=== PATIENT | female | born 2000 | race Two or more races ===

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

== ENCOUNTER 2021-07-03 11:54 | Outpatient (REF) | payer OTHER, SELFPAY ==
[2021-07-03 13:57] LABS: Binax Internal Control QC Valid; Binax Now Covid-19 Ag Negative (Negative)
== END 2021-07-03 11:55 | disposition home or self-care (01) ==
LOC: HO.LAB 11:54
PROVIDERS: Visit Provider Internal Medicine
DX: Z20.822 Contact with and (suspected) exposure to COVID-19 (principal)
CPT/HCPCS: C9803

== ENCOUNTER 2022-05-22 12:45 | Emergency (ER) | payer OTHER, SELFPAY ==
[2022-05-22 15:33] VITALS: BP 124/68; PULSE 89; RESP 16; TEMP 36.7; O2SAT 99; BMI 28.3
--- NOTE | 2022-05-22 15:44 | ED_ITS ---
HPI - Abdominal Pain General Chief Complaint: Abdominal Pain Stated Complaint: abd pain, ? missed period, backaches Time Seen by Provider: 05/22/22 17:53 Source: patient Mode of arrival: ambulatory Limitations: no limitations History of Present Illness HPI narrative: 21-year-old female who presents emergency department for evaluation of abdominal pain x2 days. The patient points to her lower abdomen acid from the pain. States this sharp pain which is intermittent. The pain is 3/10 at its worst. The patient has had 4 tests at home, 1 was -3 were positive. She does not know her last menstrual period was. Patient states she has been 1 time in the past and has no children. She denied fever, chills, chest pain, shortness of breath, nausea, vomiting, frequency, urgency or dysuria. Related Data Previous Rx's Medication Instructions Recorded famotidine 20 mg tablet (Pepcid) 20 mg PO BID 5 days #10 tabs 04/01/20 metoclopramide HCl 5 mg tablet 5 mg PO DAILY #14 tabs 08/16/20 (Reglan) ondansetron 4 mg disintegrating 4 mg PO Q8H PRN nausea and 11/29/20 tablet vomiting #20 tabs Allergies Allergy/AdvReac Type Severity Reaction Status Date / Time No Known Allergies Allergy Verified 05/20/22 14:51 Review of Systems Review of Systems Yes all other systems are reviewed and are negative [facility] Past Medical History [facility] Narrative: Past medical history: None. Past surgical history: None. Social history: She denies tobacco, alcohol and drug use. Medical History Healthy adult Spontaneous Social History Social History Alcohol intake: unknown Substance Use Type: Marijuana Advance Directives: No Advance Directives Information Provided: No Physical Exam ED Vital Signs: Vital Signs - 24 hr 05/22/22 15:33 Temperature 98.0 F Pulse Rate 89 Respiratory Rate 16 Blood Pressure 124/68 Pulse Oximetry 99 Oxygen Delivery Method Room Air BMI result Body Mass Index 28.3 Const General: cooperative and no acute distress Orientation/consciousness: oriented to person and oriented to place Limitations: no limitations HENMT Head: Yes normal to inspection, Yes normocephalic and Yes atraumatic Ears: external ears normal General nose exam: Normal external nose present Face and sinus: Yes normal facial exam Mouth: Normal oral and palatal mucosa present Throat: Yes posterior oropharynx normal Eyes General: appearance normal, both eyes and all related structures Pupils: Equal, round and reactive pupils present Neck Neck: Yes normal visual inspection, Yes no lymphadenopathy, Yes trachea midline and Yes supple Chest Chest palpation & inspection: normal inspection of the chest and normal palpation of entire chest wall Resp Effort & Inspection: normal respiratory effort and able to speak in complete s entences Auscultation: clear to auscultation bilaterally Cardio Rate: regular rate Rhythm: regular rhythm Heart sounds: S1 normal heart sound present, S2 normal heart sound present and no murmurs GI Inspection: Yes normal to inspection Palpation (GI): Soft to palpation, Tenderness to palpation present (GI) (Mild suprapubic tenderness) and no guarding Auscultation: normal bowel sounds General: Yes no CVA tenderness Back/Spine/Pelvis Back: no CVA tenderness Skin General skin exam: no rashes or lesions noted Neuro General: oriented to person and oriented to place Cranial nerves: Yes CN's II-XII intact bilaterally and Yes Equal, round and reactive pupils present Cognition (Neuro): normal cognition Motor exam (neuro): 5/5 motor strength present throughout Extrem General: Yes normal to inspection Psych Appearance: grossly normal Speech and movement: Normal speech and movement present Affect: normal affect Attitude: cooperative Thought process: Normal thought process present Thought content: Normal thought content present Course Course Course Narrative: RME: 21-year-old female no past medical history presents emergency department for evaluation of lower abdominal pain x2 days which is sharp, intermittent and 3/10 at its worst, she states she has had 4 positive tests at home. She states she has been once in the past and has no children. Vital signs were normal. Exam revealed suprapubic tenderness which is moderate, no rebound 1807: Laboratory evaluation: WBC elevated 11,600. Anemia with an H&H of 11.5 and 37.6 with a low MCV of 78.2. Platelet count was normal. CMP was normal. Quantitative beta-hCG was elevated 281. Urinalysis was negative. Blood type is O-positive. The patient does have a positive quantitative beta-hCG at 281 however this is not high enough to see the by ultrasound I did discuss this with the patient. The patient will be discharged home and advised to follow-up with our OBGYN to get a repeat quantitative beta-hCG in 1 week. Patient was prescribed vitamins. Patient was given printed and verbal instructions discharged home. MDM - Abdominal Pain Lab Data Result diagrams: 05/22/22 16:47 05/22/22 16:47 Labs: Lab Results 05/22/22 05/22/22 05/22/22 Range/Units 16:45 16:47 16:47 WBC 11.6 H (4.8-10.8) X10*3/uL RBC 4.82 (4.20-5.50) X10*6/uL Hgb 11.5 L (12.0-16.0) g/dl Hct 37.7 (37.0-47.0) % MCV 78.2 L (80.0-98.0) fL MCH 23.9 L (27.0-33.0) pg MCHC 30.5 L (31.0-35.0) g/dl RDW 15.6 (11.0-16.0) % Plt Count 371 (160-400) X10*3/uL MPV 9.7 (9.4-12.3) fL Immature Gran % (Auto) 0.5 H (0.0-0.4) % Neut % (Auto) 70.5 (45-73) % Lymph % (Auto) 23.0 (20-40) % [facility] % (Auto) 4.8 (2-11) % Eos % (Auto) 0.9 (0-4) % Baso % (Auto) 0.3 (0-2) % Lymph # (Auto) 2.7 (1.2-4.9) X10*3/uL [facility] # (Auto) 0.6 (0.1-1.2) X10*3/uL Eos # (Auto) 0.1 (0.0-0.4) X10*3/uL Baso # (Auto) 0.0 (0.0-0.2) X10*3/uL Abs Immat Gran (auto) 0.06 H (0.00-0.03) X10*3/uL Absolute Neuts (auto) 8.2 (2.0-8.3) x10*3/uL Absolute Nucleated RBC 0.000 (0.0-0.012) X10*3/uL Nucleated RBC % (auto) 0.0 (0.0-0.2) /100WBC Sodium 136 (135-145) mmol/L Potassium 3.9 (3.3-5.1) mmol/L Chloride 106 (96-108) mmol/L Carbon Dioxide 23 (22-29) mmol/L Anion Gap 11 L (12-20) BUN 11 (9-16) mg/dL Creatinine 0.71 (0.5-1.4) mg/dL Estim Creat Clear Calc 106.9 Estimated GFR > 60 Random Glucose 103 (60-115) mg/dL Calcium 9.6 (8.4-10.2) mg/dL Total Bilirubin 0.4 (0.0-1.0) mg/dL AST 11 (5-31) U/L ALT 9 (0-31) U/L Alkaline Phosphatase 95 (39-117) U/L Total Protein 7.5 (6.5-8.0) g/dL Albumin 4.2 (3.5-5.0) g/dL Beta HCG, Quant 281 mIU/mL Urine Color Urine Appearance Urine pH (5.0-9.0) Ur Specific [place] (1.005-1.025) Urine Protein (Neg-Trace) mg/dL Urine Glucose (UA) (Negative) mg/dL Urine Ketones (Negative) mg/dL Urine Blood (Negative) Urine Nitrite (Negative) Ur Leukocyte Esterase (Negative) Blood Type O Positive 05/22/22 Range/Units 17:08 WBC (4.8-10.8) X10*3/uL RBC (4.20-5.50) X10*6/uL Hgb (12.0-16.0) g/dl Hct (37.0-47.0) % MCV (80.0-98.0) fL MCH (27.0-33.0) pg MCHC (31.0-35.0) g/dl RDW (11.0-16.0) % Plt Count (160-400) X10*3/uL MPV (9.4-12.3) fL Immature Gran % (Auto) (0.0-0.4) % Neut % (Auto) (45-73) % Lymph % (Auto) (20-40) % [facility] % (Auto) (2-11) % Eos % (Auto) (0-4) % Baso % (Auto) (0-2) % Lymph # (Auto) (1.2-4.9) X10*3/uL [facility] # (Auto) (0.1-1.2) X10*3/uL Eos # (Auto) (0.0-0.4) X10*3/uL Baso # (Auto) (0.0-0.2) X10*3/uL Abs Immat Gran (auto) (0.00-0.03) X10*3/uL Absolute Neuts (auto) (2.0-8.3) x10*3/uL Absolute Nucleated RBC (0.0-0.012) X10*3/uL Nucleated RBC % (auto) (0.0-0.2) /100WBC Sodium (135-145) mmol/L Potassium (3.3-5.1) mmol/L Chloride (96-108) mmol/L Carbon Dioxide (22-29) mmol/L Anion Gap (12-20) BUN (9-16) mg/dL Creatinine (0.5-1.4) mg/dL Estim Creat Clear Calc Estimated GFR Random Glucose (60-115) mg/dL Calcium (8.4-10.2) mg/dL Total Bilirubin (0.0-1.0) mg/dL AST (5-31) U/L ALT (0-31) U/L Alkaline Phosphatase (39-117) U/L Total Protein (6.5-8.0) g/dL Albumin (3.5-5.0) g/dL Beta HCG, Quant mIU/mL Urine Color Yellow Urine Appearance Clear Urine pH 6.0 (5.0-9.0) Ur Specific [place] 1.020 (1.005-1.025) Urine Protein Negative (Neg-Trace) mg/dL Urine Glucose (UA) Negative (Negative) mg/dL Urine Ketones Negative (Negative) mg/dL Urine Blood Negative (Negative) Urine Nitrite Negative (Negative) Ur Leukocyte Esterase Negative (Negative) Blood Type Discharge Plan Discharge Clinical Impression: Abdominal pain Qualifiers: Weeks of gestation: less than 8 weeks Qualified Code(s): Z3A.01 - Less than 8 weeks gestation of Patient Disposition: Home, Self-Care Instructions: Abdominal Pain in (ED) Additional Instructions: Your quantitative beta-hCG blood test was 281. This number is too low for us to see your using an ultrasound. This number should double in 4-7 days therefore I want you to follow-up with our OBGYN provider to get a repeat quantitative beta-hCG in 4-7 days. At this time, I would assume that you are however sometimes women can have quantitative beta-hCG in their blood and not be fast [facility] to follow up to see if it goes up. If you developed increased pain in her lower abdomen, if you feel lightheaded or dizzy or if you develop any symptoms that your concerned about you should return to the emergency department. Follow-up with our OBGYN provider in 4-7 days Please return to the emergency department if your symptoms get worse or if you develop any symptoms that are concerning to you. Prescriptions: No Action famotidine [Pepcid] 20 mg tablet 20 mg PO BID 5 Days Qty: 10 0RF metoclopramide HCl [Reglan] 5 mg tablet 5 mg PO DAILY Qty: 14 0RF ondansetron 4 mg tablet,disintegrating 4 mg PO Q8H PRN (Reason: nausea and vomiting) Qty: 20 0RF Referrals: Jason John MD [Emergency Provider] - Darrel Lama MD [Physician] - 5 days (Quantitative beta-hCG 281, unknown last menstrual period, suprapubic pain)
[2022-05-22 16:50] LABS: MANUAL DIFF FLAG NO
[2022-05-22 16:57] LABS: Basophils Percent Auto 0.3 % (0-2); Eosinophils Absolute Auto 0.1 X10*3/uL (0.0-0.4); Eosinophils Percent Auto 0.9 % (0-4); Hematocrit 37.7 % (37.0-47.0); Hemoglobin 11.5 g/dl (12.0-16.0); Imm Gran Abs Auto 0.06 X10*3/uL (0.00-0.03); Imm Gran Pct Auto 0.5 % (0.0-0.4); Lymphocytes Absolute Auto 2.7 X10*3/uL (1.2-4.9); Mean Corpuscular HGB Conc 30.5 g/dl (31.0-35.0); Mean Corpuscular Hemoglobin 23.9 pg (27.0-33.0); Mean Corpuscular Volume 78.2 fL (80.0-98.0); Mean Platelet Volume 9.7 fL (9.4-12.3); Monocytes Absolute Auto 0.6 X10*3/uL (0.1-1.2); Monocytes Percent Auto 4.8 % (2-11); Neutrophils Absolute Auto 8.2 x10*3/uL (2.0-8.3); Neutrophils Percent Auto 70.5 % (45-73); Platelet Count 371 X10*3/uL (160-400); Red Blood Count 4.82 X10*6/uL (4.20-5.50); Red Cell Distribution Width 15.6 % (11.0-16.0); White Blood Count 11.6 X10*3/uL (4.8-10.8)
[2022-05-22 17:12] LABS: Alanine Aminotransferase 9 U/L (0-31); Albumin Level 4.2 g/dL (3.5-5.0); Alkaline Phosphatase 95 U/L (39-117); Anion Gap 11 (12-20); Aspartate Amino Transferase 11 U/L (5-31); Bilirubin Total 0.4 mg/dL (0.0-1.0); Blood Urea Nitrogen 11 mg/dL (9-16); Calcium 9.6 mg/dL (8.4-10.2); Carbon Dioxide 23 mmol/L (22-29); Chloride 106 mmol/L (96-108); Creatinine Clr Calc Pharmacy 106.9; Estimated Glomerular Filt Rate > 60; Glucose Random 103 mg/dL (60-115); HCG Quantitative 281 mIU/mL; Potassium 3.9 mmol/L (3.3-5.1); Sodium 136 mmol/L (135-145); Total Protein 7.5 g/dL (6.5-8.0)
[2022-05-22 17:29] LABS: Appearance Urine Clear; Color Urine Yellow; Glucose Urine UA Negative (Negative); Leukocyte Esterase Urine Negative (Negative); Nitrite Urine Negative (Negative); Urine Blood Negative (Negative); Urine Ketones Negative (Negative); Urine Protein Negative (Neg-Trace)
[2022-05-22 18:41] VITALS: BP 135/81; PULSE 90; RESP 14; TEMP 36.7; O2SAT 99
--- NOTE | 2022-05-22 18:42 | PC.NURSE ---
Pt aox4. No apparent distress noted. Discharge instructions reviewed with pt. Pt verbalizes understanding.
== END 2022-05-22 18:43 | disposition home or self-care (01) ==
PROVIDERS: Emergency Provider Emergency Medicine Emergency Medical Services; PCP Internal Medicine
DX: R10.9 Unspecified abdominal pain (principal); Z32.01 Encounter for pregnancy test, result positive
CPT/HCPCS: 36415; 80053; 81003; 84702; 85025; 86900; 86901; 99283

== ENCOUNTER 2023-03-17 10:28 | Outpatient (AMB) | payer OTHER, SELFPAY ==
[2023-03-17 10:28] VITALS: BP 116/64; PULSE 97; O2SAT 98; BMI 34.6
--- NOTE | 2023-03-17 10:28 | MHC.PC.OV ---
Vital Signs 03/17/23 10:28 Height 5 ft 1 in Weight 183 lb 2 oz BMI 34.6 BP 116/64 Blood Pressure Location Lt brachial Position Sitting Pulse 97 Pulse Source Pulse Oximeter Pulse Oximetry (%) 98 Oxygen Delivery Method Room Air Intake Visit Reasons: tranfer of care NPV Intake Note: Pt is here to transfer care from Dr. Dudley. Out Of School Hours Care Worker Required: No Accompanied by: Self / Same As Patient Is last menstrual period known: Yes Last menstrual period: 10/28/22 Patient : Yes (6 months ) Allergies No Known Allergies Allergy (Verified 03/17/23 10:54) Medication List - Last Reconciled 03/17/23 by Orlando Lucio PA-C PNV,calcium [id number] acid 27 mg iron- 1 mg ( Vitamins Plus Low Iron) 1 tab PO DAILY Tobacco use date assessed: 03/17/23 Dental Screening Dental Screen Date: 03/17/23 Did you have a dental visit in the last 12 months?: Yes Did you have a dental problem in the last 6 months where you did not have access to dental care?: No Was dental information given to patient?: Patient has dentist HPI tranfer of care NPV HPI Details Patient is a 22-year-old female here today for a transfer care visit. Patient has a past medical history significant for obesity, anemia and generalized anxiety disorder. Currently she reports she is 5 months , now seeing OBGYN at [facility]. Generalized anxiety disorder: She reports her anxiety has been a lifelong challenge, she does report having anxiety so bad that she ends up passing out . Her anxiety is mostly in social situations. Not been able to work. She has seen a mental therapist in the past and would like to reestablish care with a mental health therapist. She is somewhat interested in starting medication though at this time she is currently and will hold off on medication until after . . Iron deficiency anemia: Has a history of low hemoglobin and MCV. Currently in continues on a vitamin that also has iron. .. Vaccines: Up-to-date with COVID vaccine and tetanus vaccine, considering flu vaccine [facility] Medical History care in first trimester Spontaneous Healthy adult Surgical History No pertinent past surgical history Family History Mother No known health problems Father No known health problems Sister Type II diabetes mellitus Social History (Updated 03/17/23 @ 10:58 by Orlando Lucio PA-C) Housing: Apartment Alcohol intake: never Patient Tobacco Use Status: Never used Tobacco e-Cigarette/Vaping Use: Never Used Substance Use Type: Marijuana service: No Current occupational status: unemployed Cognitive needs: No Hearing needs: No Vision needs: Yes Female Reproductive History Menstrual Date of last menstrual period: 10/28/22 Questionnaire PHQ-9 Over the last 2 weeks, how often have you been bothered by any of the following problems? 1. Little interest or pleasure in doing things: not at all 2. Feeling down, depressed, or hopeless: not at all 3. Trouble falling or staying asleep, or sleeping too much: not at all 4. Feeling tired or having little energy: not at all 5. Poor appetite or overeating: not at all 6. Feeling bad about yourself - or that you are a failure or have let yourself or your family down: not at all 7. Trouble concentrating on things, such as reading the newspaper or watching television: not at all 8. Moving or speaking so slowly that other people could have noticed. Or the opposite - being so fidgety or restless that you have been moving around a lot more than usual: not at all 9. Thoughts that you would be better off or of hurting yourself in some way: not at all Total score: 0 Depression Screening Interpretation: Negative 42661 - PHQ-9 Billing: Yes Source: Developed by Drs. Raymond Nails, Josy Victor, David Starkey and colleagues, with an educational valeri from [employer]. Thrive Questionnaire Date Thrive assessed: 03/17/23 I am a: Patient What is your living situation today?: I have a steady place to live Within the past 12 months, did the food you bought not last and you didn't have the money to get more?: Never true Within the past 12 months, did you worry whether your food would run out before you got money to buy more?: Never true Do you have trouble paying for medicines?: No Do you have trouble getting transportation to medical appointments?: No Do you have trouble paying your heating and electricity bill?: No Do you have trouble taking care of your child, family member or friend?: No Do you have trouble with day-to-day activities such as bathing, preparing meals, shopping, managing finances, etc.?: No Are you currently unemployed and looking for a job?: No Are you interested in more education?: Yes Please select the resources that you would like help with: Education Currently or been in a relationship where the following occur: no concerns reported AUDIT C Alcohol Use Questionnaire (AUDIT-C) 1. How often do you have a drink containing alcohol?: Never 3. How often do you have six or more drinks on one occasion?: Never Total Score: 0 RENETTA-7 AMB Questionnaire RENETTA-7 Date RENETTA - 7 assessed: 03/17/23 Feeling nervous, anxious, or on edge: 0 = Not at all Not being able to stop or control worryin = Several days Worrying too much about different things: 2 = More than half the days Trouble relaxin = Several days Being so restless that it is hard to sit still: 0 = Not at all Becoming easily annoyed or irritable: 0 = Not at all Feeling afraid as if something awful might happen: 3 = Nearly every day Total RENETTA-7 score (0-4 normal; 5-9 mild; 10-14 moderate; 15-21 severe): 7 Source: Developed by Drs. Raymond Nails, Josy Victor, David Starkey and colleagues, with an educational valeri from [employer]. RENETTA-7 Assessment Billing RENETTA-7 Assessment Tool: RENETTA-7 Assessment [id number] Review of Systems Const Denies headache(s) Eyes Denies loss of vision ENT Denies vertigo, Denies dizziness, Denies headache(s) and Denies sore throat Card Denies chest pain, Denies leg edema and Denies lightheadedness Resp Denies cough, Denies hemoptysis and Denies wheezing GI Denies abdominal pain, Denies melena, Denies constipation, Denies diarrhea and Denies vomiting Denies urinary frequency, Denies dysuria and Denies urinary urgency Musc Denies arthralgias, Denies joint swelling, Denies numbness and Denies tingling Neuro Denies Abnormal speech present, Denies behavioral changes, Denies vertigo, Denies dizziness, Denies headache(s), Denies loss of vision, Denies memory loss, Denies numbness and Denies tingling Psych Reports anxiety, Denies behavioral changes, Denies depression, Denies memory loss, Reports panic attacks and Denies paranoia Skyler/Lymph Denies easy bleeding and Denies easy bruising Aller/Immun Denies wheezing Physical exam (Primary Care) Vital Signs: Last Vital Signs Pulse 97 03/17/23 10:28 BP 116/64 03/17/23 10:28 Pulse Ox 98 03/17/23 10:28 Oxygen Delivery Method Room Air 03/17/23 10:28 BMI result Body Mass Index 34.6 BMI Assessment/Plan discussion: High Tobacco/Smoking Status: Tobacco use Status Tobacco use date assessed 03/17/23 03/17/23 10:47 Patient Tobacco Use Status Never used Tobacco 03/17/23 10:58 e-Cigarette/Vaping Use Never Used 03/17/23 10:58 PHQ-9: PHQ-9 Score PHQ-9: Total score 0 03/17/23 10:56 Depression Screening Interpretation: Negative Thrive Assessment: Date of Thrive Assessment Date Thrive assessed 03/17/23 03/17/23 10:47 Currently or been in a relationship where the following occur: no concerns reported Const Other: Obese General: healthy appearing, no acute distress, alert and awake Nutritional Appearance: well nourished Orientation/consciousness: oriented to person, oriented to place and oriented to time HENMT Ears: TM's normal bilaterally General nose exam: Normal nasal mucous membranes and turbinates present Eyes Conjunctivae: conjunctivae normal Sclerae: sclerae normal Pupils: Equal, round and reactive pupils present Neck Neck: Yes no lymphadenopathy and Yes no JVD Thyroid: Thyroid normal Carotids: no bruits Resp Effort & Inspection: normal respiratory effort and not tachypneic Auscultation: no crackles, no rales, no rhonchi and no wheezes Cardio Rate: regular rate Rhythm: regular rhythm Heart sounds: no murmurs and normal S1 and S2 GI Palpation (GI): Soft to palpation, nontender, no hepatomegaly and no splenomegaly Auscultation: normal bowel sounds Skin General skin exam: no rashes or lesions noted and dry skin Neuro General: oriented to person, oriented to place and oriented to time Cranial nerves: Yes Equal, round and reactive pupils present Speech: No Abnormal speech present Gait exam (Neuro): Normal gait present Motor exam (neuro): no tremor noted Extrem Right upper extremity: full ROM Left upper extremity: full ROM Right lower extremity: full ROM; no edema Left lower extremity: full ROM; no edema Psych Other: APPEARS VERY ANXIOUS, PLAYING WITH HANDS Mental Status: mental status grossly normal Speech and movement: Normal speech and movement present Affect: Anxious affect present Attitude: cooperative Thought process: Normal thought process present Assessment and Plan Assessment & Plan (1) Obese: Code(s): E66.9 - Obesity, unspecified Qualifiers: Body mass index: BMI 34.0-34.9 Obesity classification: adult class 1 (BMI 30 - 34.9) Obesity type: due to excess calories Serious obesity comorbidity presence: without serious comorbidity Qualified Code(s): E66.09 - Other obesity due to excess calories; Z68.34 - Body mass index [BMI] 34.0-34.9, adult Plan: Patient does understand her BMI is is above 30 and is willing to work on being more physically active and adapting to better eating habits to reduce her weight. Currently 5 months . (2) RENETTA (generalized anxiety disorder): Code(s): F41.1 - Generalized anxiety disorder Plan: Patient's RENETTA-7 score positive for moderate anxiety which has been an existing condition for her. Has been unable to work due to her anxiety. Has seen mental health therapist in the past which was not too helpful though was willing to try it again. Will try to set her up with cognitive behavioral therapy to work with her on her severe anxiety. (3) Screening for diabetes mellitus (DM): Code(s): Z13.1 - Encounter for screening for diabetes mellitus (4) Anemia: Code(s): D64.9 - Anemia, unspecified Qualifiers: Anemia type: iron deficiency Iron deficiency anemia type: unspecified iron deficiency Qualified Code(s): D50.9 - Iron deficiency anemia, unspecified Plan: Has a history of low hemoglobin and MCV. Currently taking vitamins that icludes iron. Will check her CBC and iron studies Orders: Orders Complete Blood Count no Diff Today D50.9 - Iron deficiency anemia, unspecified IRON PROFILE Today D50.9 - Iron deficiency anemia, unspecified Referrals Counseling Referral F41.1 - Generalized anxiety disorder Coding Level of Care Code Est Pt Level 4 (26908) Diagnoses Class 1 obesity due to excess calories without serious comorbidity with body mass index (BMI) of 34.0 to 34.9 in adult E66.09; Z68.34 Body mass index: BMI 34.0-34.9 Obesity classification: adult class 1 (BMI 30 - 34.9) Obesity type: due to excess calories Serious obesity comorbidity presence: without serious comorbidity RENETTA (generalized anxiety disorder) F41.1 Screening for diabetes mellitus (DM) Z13.1 Iron deficiency anemia, unspecified iron deficiency anemia type D50.9 Anemia type: iron deficiency Iron deficiency anemia type: unspecified iron deficiency Additional Codes RENETTA-7 Assessment Billing - RENETTA-7 Assessment Tool: RENETTA-7 Assessment [id number] ([id number])
== END 2023-03-17 11:15 | disposition home or self-care (01) ==
PROVIDERS: PCP Physician Assistant; Visit Provider Physician Assistant
DX: D50.9 Iron deficiency anemia, unspecified (principal); E66.09 Other obesity due to excess calories; Z68.34 Body mass index [BMI] 34.0-34.9, adult; F41.1 Generalized anxiety disorder; Z13.1 Encounter for screening for diabetes mellitus
CPT/HCPCS: 99214

== ENCOUNTER 2023-04-04 20:08 | Emergency (ER) | payer OTHER, SELFPAY ==
[2023-04-04 20:23] VITALS: BP 140/75; PULSE 94; RESP 16; TEMP 36.6; O2SAT 98; BMI 37.2
--- NOTE | 2023-04-04 20:23 | ED.GENADULT ---
HPI - General Adult General Chief complaint: Animal Bite Stated complaint: ?Finger infection Source: patient, RN notes reviewed and old records reviewed Mode of arrival: ambulatory Limitations: no limitations History of Present Illness HPI narrative: 22-year-old female presents for evaluation of left 4th finger pain and swelling. Patient reports that she was stung by a bee yesterday afternoon She reports increasing redness, swelling and pain to the area Denies fevers, chills. The patient has never been stung by a bee before so has no known allergy to bee stings. She states the area is also very itchy No facial swelling, shortness of breath. The patient is approximately 20 weeks , Related Data Home Medications Medication Instructions Recorded Confirmed vitamin with calcium 1 tab PO DAILY 03/17/23 03/17/23 no.72-iron 27 mg-folic acid 1 mg tablet ( Vitamins Plus Low Iron) Previous Rx's Medication Instructions Recorded cephalexin 500 mg capsule 500 mg PO QID #20 caps 04/04/23 diphenhydramine HCl 25 mg capsule 25 mg PO Q6H PRN itching #20 caps 04/04/23 (Benadryl) Allergies Allergy/AdvReac Type Severity Reaction Status Date / Time No Known Allergies Allergy Verified 03/17/23 10:54 Review of Systems Constitutional: Constitutional: Denies chills and Denies fever(s) Musculoskeletal: Musculoskeletal: Reports joint swelling Integumentary/Breasts: Skin/Breast: Reports erythema PMFSH Past Medical History Medical History care in first trimester Spontaneous Healthy adult Surgical History No pertinent past surgical history Family History Family History Mother No known health problems Father No known health problems Sister Type II diabetes mellitus Social History Social History (Updated 03/17/23 @ 10:58 by Orlando Lucio PA-C) Housing: Apartment Alcohol intake: never Patient Tobacco Use Status: Never used Tobacco e-Cigarette/Vaping Use: Never Used Substance Use Type: Marijuana Advance Directives: No Advance Directives Information Provided: No service: No Current occupational status: unemployed Cognitive needs: No Hearing needs: No Vision needs: Yes Physical Exam ED Vital Signs: Vital Signs - 24 hr 04/04/23 20:23 Temperature 98 F Pulse Rate 94 Respiratory Rate 16 Blood Pressure 140/75 H Pulse Oximetry 98 Oxygen Delivery Method Room Air BMI result Body Mass Index 37.2 Const General: healthy appearing, comfortable, no acute distress, alert and awake Nutritional Appearance: well nourished [facility] Head: Yes normocephalic and Yes atraumatic Eyes Eyelids: Yes eyelids normal Conjunctivae: conjunctivae normal Sclerae: sclerae normal Corneas: corneas normal Pupils: Equal, round and reactive pupils present EOM: EOMs intact bilaterally Neck Neck: Yes full ROM Resp Effort & Inspection: normal respiratory effort, able to speak in complete sentences and not labored GI Inspection: No distended Palpation (GI): Soft to palpation, not firm, nontender, no guarding and not rigid Skin Other: Patient has a very small, pinpoint puncture wound to the radial side of the left 4th finger. There is some erythema extending on the ventral and dorsal surface of the finger extending proximally about 2-3 cm. This area has increased warmth. No drainage. Minimal tenderness on exam. General skin exam: elasticity normal Neuro Cranial nerves: Yes Equal, round and reactive pupils present and Yes Bilaterally intact EOM present Cognition (Neuro): normal cognition Extrem Other: Slightly reduced range of motion with flexion of the left 4th finger Medical Decision Making Medical Decision Making MDM Narrative: Patient was stung by a bee to the left 4th finger the day and half ago. She has some redness, increased warmth and edema to the left 4th finger. Given the time frame has been left in 2 days a have a low suspicion for cellulitis however given that this is the patient's hand and fingers she has decreased range of motion I think it is appropriate to treat with antibiotics for a few days. She was encouraged to use Benadryl and cephalexin. The area was marked with a surgical pen to be able to evaluate for worsening redness. Patient was encouraged to return for any fevers Differential Diagnosis Differential Diagnoses: The differential diagnosis associated with the presentation includes Bee sting Cellulitis Dermatitis Finger pain Discharge Plan Discharge Clinical Impression: Bee sting Patient Disposition: Home, Self-Care Instructions: Insect Bite or Sting (ED) Additional Instructions: You have a bee sting to the left 4th finger. This is mostly likely just a localized reaction You should take Benadryl 25mg every 6 hours to help reduce swelling and pain. You may take Cephalexin every 6 hours for the next 5 days. Prescriptions: New diphenhydramine HCl [Benadryl] 25 mg capsule 25 mg PO Q6H PRN (Reason: itching) Qty: 20 0RF cephalexin 500 mg capsule 500 mg PO QID Qty: 20 0RF No Action Vitamin Plus Low Iron 27 mg iron- 1 mg tablet 1 tab PO DAILY
== END 2023-04-04 20:39 | disposition home or self-care (01) ==
PROVIDERS: Emergency Provider Emergency Medicine; PCP Physician Assistant
DX: M79.645 Pain in left finger(s) (principal); T63.441A Toxic effect of venom of bees, accidental (unintentional), initial encounter; Y92.9 Unspecified place or not applicable
CPT/HCPCS: 99282; 99283

== ENCOUNTER 2023-08-07 09:49 | Outpatient (AMB) | payer OTHER, SELFPAY ==
[2023-08-07 09:50] VITALS: BP 118/80; PULSE 79; O2SAT 98; BMI 36.9
--- NOTE | 2023-08-07 09:50 | MHC.PC.OV ---
Vital Signs 08/07/23 09:50 Height 5 ft Weight 189 lb BMI 36.9 BP 118/80 Blood Pressure Location Lt brachial Position Sitting Pulse 79 Pulse Source Pulse Oximeter Pulse Oximetry (%) 98 Oxygen Delivery Method Room Air Intake Visit Reasons: Depression/Anxiety Intake Note: pt states depression, panic attacks and anxiety attacks since giving 07/28 Library Director Required: No Allergies nifedipine Adverse Reaction (Intermediate, Verified 08/07/23 10:08) Headache Medication List - Last Reconciled 08/07/23 by Orlando Lucio PA-C labetalol 600 mg PO BID PNV,calcium 79-tadi-rckaj acid 27 mg iron- 1 mg ( Vitamins Plus Low Iron) 1 tab PO DAILY Tobacco use date assessed: 08/07/23 Dental Screening Dental Screen Date: 08/07/23 HPI Depression/Anxiety HPI Details Patient is a 22-year-old female here today to discuss mental health. Recently gave earlier this month and has been suffering both anxiety depression. Recently gave to a . Has been suffering with severe anxiety and depression. She reports she feels very anxious all the time. She denies having any adequate care. She was also experiencing high blood pressure readings ? hypertension. She reports she was on nifedipine and labetalol though reports side effects of worsening anxiety. [facility] Medical History care in first trimester Spontaneous Healthy adult Surgical History No pertinent past surgical history Family History Mother No known health problems Father No known health problems Sister Type II diabetes mellitus Social History Housing: Apartment Alcohol intake: never Patient Tobacco Use Status: Never used Tobacco e-Cigarette/Vaping Use: Never Used Substance Use Type: Marijuana service: No Current occupational status: unemployed Cognitive needs: No Hearing needs: No Vision needs: Yes Questionnaire PHQ-9 Over the last 2 weeks, how often have you been bothered by any of the following problems? 1. Little interest or pleasure in doing things: several days 2. Feeling down, depressed, or hopeless: several days 3. Trouble falling or staying asleep, or sleeping too much: several days 4. Feeling tired or having little energy: several days 5. Poor appetite or overeating: several days 6. Feeling bad about yourself - or that you are a failure or have let yourself or your family down: several days 7. Trouble concentrating on things, such as reading the newspaper or watching television: several days (panic attacks ) 8. Moving or speaking so slowly that other people could have noticed. Or the opposite - being so fidgety or restless that you have been moving around a lot more than usual: several days 9. Thoughts that you would be better off or of hurting yourself in some way: several days Total score: 9 Depression Screening Interpretation: Positive Depression Screening Done: Yes 71570 - PHQ-9 Billing: Yes Source: Developed by Drs. Raymond Nails, Josy Victor, David Starkey and colleagues, with an educational valeri from [employer]. Thrive Questionnaire Date Thrive assessed: 08/07/23 AUDIT C Alcohol Use Questionnaire (AUDIT-C) 1. How often do you have a drink containing alcohol?: Never 3. How often do you have six or more drinks on one occasion?: Never Total Score: 0 RENETTA-7 AMB Questionnaire RENETTA-7 Date RENETTA - 7 assessed: 08/07/23 Feeling nervous, anxious, or on edge: 1 = Several days Not being able to stop or control worryin = Several days Worrying too much about different things: 1 = Several days Trouble relaxin = Several days Being so restless that it is hard to sit still: 1 = Several days Becoming easily annoyed or irritable: 0 = Not at all Feeling afraid as if something awful might happen: 1 = Several days Total RENETTA-7 score (0-4 normal; 5-9 mild; 10-14 moderate; 15-21 severe): 6 Source: Developed by Drs. Raymond Nails, Josy Victor, David Starkey and colleagues, with an educational valeri from [employer]. RENETTA-7 Assessment Billing RENETTA-7 Assessment Tool: RENETTA-7 Assessment 49924 Review of Systems Const Denies headache(s) Eyes Denies loss of vision ENT Denies vertigo, Denies dizziness, Denies headache(s) and Denies sore throat Card Denies chest pain, Denies leg edema and Denies lightheadedness Resp Denies cough, Denies hemoptysis and Denies wheezing GI Denies abdominal pain, Denies melena, Denies constipation, Denies diarrhea and Denies vomiting Denies urinary frequency, Denies dysuria and Denies urinary urgency Musc Denies arthralgias, Denies joint swelling, Denies numbness and Denies tingling Neuro Denies Abnormal speech present, Denies behavioral changes, Denies vertigo, Denies dizziness, Denies headache(s), Denies loss of vision, Denies memory loss, Denies numbness and Denies tingling Psych Denies anxiety, Denies behavioral changes, Denies depression, Denies memory loss and Denies panic attacks Skyler/Lymph Denies easy bleeding and Denies easy bruising Aller/Immun Denies wheezing Physical exam (Primary Care) Vital Signs: Last Vital Signs Pulse 79 08/07/23 09:50 BP 118/80 08/07/23 09:50 Pulse Ox 98 08/07/23 09:50 Oxygen Delivery Method Room Air 08/07/23 09:50 BMI result Body Mass Index 36.9 Tobacco/Smoking Status: Tobacco use Status Tobacco use date assessed 08/07/23 08/07/23 09:59 Patient Tobacco Use Status Never used Tobacco 08/07/23 09:59 e-Cigarette/Vaping Use Never Used 08/07/23 09:59 PHQ-9: PHQ-9 Score PHQ-9: Total score 9 08/07/23 10:01 Depression Screening Interpretation: Positive Thrive Assessment: Date of Thrive Assessment Date Thrive assessed 08/07/23 08/07/23 09:59 Const General: healthy appearing, no acute distress, alert and awake Nutritional Appearance: well nourished Orientation/consciousness: oriented to person, oriented to place and oriented to time HENMT Ears: TM's normal bilaterally General nose exam: Normal nasal mucous membranes and turbinates present Eyes Conjunctivae: conjunctivae normal Sclerae: sclerae normal Pupils: Equal, round and reactive pupils present Neck Neck: Yes no lymphadenopathy and Yes no JVD Thyroid: Thyroid normal Carotids: no bruits Resp Effort & Inspection: normal respiratory effort and not tachypneic Auscultation: no crackles, no rales, no rhonchi and no wheezes Cardio Rate: regular rate Rhythm: regular rhythm Heart sounds: no murmurs and normal S1 and S2 GI Palpation (GI): Soft to palpation, nontender, no hepatomegaly and no splenomegaly Auscultation: normal bowel sounds Skin General skin exam: no rashes or lesions noted and dry skin Neuro General: oriented to person, oriented to place and oriented to time Cranial nerves: Yes Equal, round and reactive pupils present Speech: No Abnormal speech present Gait exam (Neuro): Normal gait present Motor exam (neuro): no tremor noted Extrem Right upper extremity: full ROM Left upper extremity: full ROM Right lower extremity: full ROM; no edema Left lower extremity: full ROM; no edema Psych Mental Status: mental status grossly normal Speech and movement: Normal speech and movement present Affect: normal affect Attitude: cooperative Thought process: Normal thought process present Assessment and Plan Assessment & Plan (1) anxiety: Code(s): O99.345 - Other mental disorders complicating the puerperium; F41.8 - Other specified anxiety disorders Plan: Patient's RENETTA-7 score positive for anxiety. Patient suffering with anxiety and depression. She is willing to start sertraline and p.r.n. use of hydroxyzine for her anxiety. Will try to set her up with a mental health therapist to start cognitive behavioral therapy. Will follow-up with patient in the next few weeks to evaluate the effectiveness of both therapy and medication. (2) HTN (hypertension): Code(s): I10 - Essential (primary) hypertension Qualifiers: Hypertension type: unspecified secondary hypertension Qualified Code(s): I15.9 - Secondary hypertension, unspecified Plan: Patient's blood pressure slightly elevated today in office. Advised to monitor blood pressure at home with a blood pressure cuff and call back with results. If elevated above 140/90 will consider starting new blood pressure medication Orders: Referrals Counseling Referral F41.8 - Other specified anxiety disorders, O99.345 - Other mental disorders complicating the puerperium Medications: New hydroxyzine HCl 10 mg PO BEDTIME 15 days PRN 15 tabs 0RF anxiety F41.1 - Generalized anxiety disorder, F41.9 - Anxiety disorder, unspecified sertraline 50 mg PO DAILY 30 days 30 tabs 1RF F41.8 - Other specified anxiety disorders, O99.345 - Other mental disorders complicating the puerperium miscellaneous medical supply (Blood Pressure Cuff) As directed 1 ea 0RF I10 - Essential (primary) hypertension, I15.9 - Secondary hypertension, unspecified Coding Level of Care Code Est Pt Level 4 (26709) Diagnoses anxiety O99.345; F41.8 Secondary hypertension I15.9 Hypertension type: unspecified secondary hypertension Additional Codes RENETTA-7 Assessment Billing - RENETTA-7 Assessment Tool: RENETTA-7 Assessment [id number] ([id number])
== END 2023-08-07 10:23 | disposition home or self-care (01) ==
PROVIDERS: PCP Physician Assistant; Visit Provider Physician Assistant
DX: F41.8 Other specified anxiety disorders (principal); I15.9 Secondary hypertension, unspecified; O99.345 Other mental disorders complicating the puerperium
CPT/HCPCS: 96127; 99214

== ENCOUNTER 2023-08-19 12:21 | Outpatient (AMB) | payer OTHER, SELFPAY ==
--- NOTE | 2023-08-19 12:57 | AM.OFFWIN_ITS ---
Intake Vital Signs 08/19/23 12:59 Weight 186 lb BP 120/90 H Blood Pressure Location Lt brachial Position Sitting Pulse 104 H Pulse Source Pulse Oximeter Pulse Oximetry (%) 98 Oxygen Delivery Method Room Air Intake Visit Reasons: EST/ body pains (lobby masked) Intake Note: Patient here for body pains, SOB which has been present for about 3-5 days. Patient Tobacco Use Status: Never used Tobacco Allergies nifedipine Adverse Reaction (Intermediate, Verified 08/19/23 13:27) Headache Do you need a note to return to daycare/school/sports/work: No HPI HPI Comments History of Present Illness Details Patient is a 22-year-old female in today for a sick visit. She has a past medical history significant for generalized anxiety disorder and hypertension. Patient states that the past several days she has developed symptoms of cough, sore throat, chest wall pain, palpitations, headache. Denies chest pain, shortness a breath, dizziness, numbness, nausea, vomiting, diarrhea. She is currently taking Macrobid for UTI. Has used lgxh-wup-bshpwrz medicine with little relief. Denies sick contacts, denies recent travel. [facility] Medical History care in first trimester Spontaneous Healthy adult Surgical History No pertinent past surgical history Family History Mother No known health problems Father No known health problems Sister Type II diabetes mellitus Social History Housing: Apartment Alcohol intake: never Patient Tobacco Use Status: Never used Tobacco e-Cigarette/Vaping Use: Never Used Substance Use Type: Marijuana service: No Current occupational status: unemployed Cognitive needs: No Hearing needs: No Vision needs: Yes Review of Systems Const Details: Constitutional : No Weight loss, No Fever, Admits Chills, No Fatigue, No Malaise ENT/Mouth : Admits sore throat, No Rhinorrhea, Admits ear fullness. Eyes: No Eye Pain, No Swelling, No Redness Cardiovascular : No Chest Pain, No SOB, No Dyspnea on Exertion, No Orthopnea, No Edema, No Palpitations Respiratory : Admits Cough, No Sputum, No Wheezing, Admits congestion. Gastrointestinal : No Nausea, No Vomiting, No Diarrhea, No Constipation, No abdominal Pain, No Hematochezia, No Melena Musculoskeletal : No joint pain, No Myalgias, No Joint Swelling Neuro : No Weakness, No Numbness, No Dizziness, No Headache Psych : Admits some Anxiety/Panic, No Depression All other systems reviewed and are negative Physical Exam Vital Signs: Last Vital Signs Pulse 104 H 08/19/23 12:59 BP 120/90 H 08/19/23 12:59 Pulse Ox 98 08/19/23 12:59 Oxygen Delivery Method Room Air 08/19/23 12:59 Const Other: Appearance: Alert.? Oriented X3.? No acute distress.? Head: Normocephalic, atraumatic. Eyes: Pupils equal, round and reactive to light.? ENT: Pharynx erythema and cobblestoned. No exudate. Tonsils +2 Neck: Normal inspection.? Neck supple.?Full ROM. CVS: Normal heart rate and rhythm.? Pulses normal.? Respiratory: No respiratory distress.? Breath sounds normal.? Abdomen: Soft and nontender.? Back: No midline tenderness, no C-spine tenderness, full range of motion, no CVA tenderness bilaterally Neuro: Oriented X 3.? No motor deficit.? No sensory deficit. CN 2-12 intact Office Procedures EKG [id number], Complete Assessment & Plan Assessment & Plan (1) Upper respiratory infection: Code(s): J06.9 - Acute upper respiratory infection, unspecified Qualifiers: URI type: unspecified URI Qualified Code(s): J06.9 - Acute upper respiratory infection, unspecified Plan: Will obtain URI swab. Will obtain EKG. Will draw a CBC/CMP. Will obtain chest x-ray. Will give patient prednisone to be taken as directed, and albuterol inhaler. Patient has been instructed to follow-up with PCP Plan Take your medications as prescribed. If you were prescribed antibiotics today, it is important that you take your medication to their entirety, do not skip any doses, do not finish them early. Follow-up with your primary care provider this week. Return to the emergency department with new or worsening symptoms. Such as fevers, chills, chest pain, shortness of breath, nausea, vomiting, dizziness, headache, vision changes, lethargy In case of emergency call 911 Orders: Orders AMB EKG-In Office Today R00.2 - Palpitations Comprehensive Met. Panel Today I10 - Essential (primary) hypertension SARS-CoV2/FLU/RSV Today J06.9 - Acute upper respiratory infection, unspecified Complete Blood Count Auto Diff Today D72.829 - Elevated white blood cell count, unspecified XR chest 2V Today R09.89 - Other specified symptoms and signs involving the circulatory and respiratory systems Coding Level of Care Code Est Pt Level 3 (34518) Diagnoses Upper respiratory tract infection, unspecified type J06.9 URI type: unspecified URI CPT Codes EKG - CPT: 02365-[id number], Complete ([id number]) Time Spent (min) 20
[2023-08-19 12:59] VITALS: BP 120/90; PULSE 104; O2SAT 98
== END 2023-08-19 14:05 | disposition home or self-care (01) ==
PROVIDERS: PCP Physician Assistant; Visit Provider Nurse Practitioner Primary Care
DX: R00.2 Palpitations (principal); I10 Essential (primary) hypertension
CPT/HCPCS: 93000; 99213

== ENCOUNTER 2023-08-19 13:38 | Outpatient (REF) | payer OTHER, SELFPAY ==
--- NOTE | ~2023-08-19 | XR_ITS ---
EXAMINATION: XR CHEST CLINICAL INFORMATION: Other symptoms and signs involving the circulatory system . No additional history provided. COMPARISON: Chest radiograph 08/01/2019. TECHNIQUE: 2 views of the chest were obtained. FINDINGS: Normal heart size. No focal airspace opacities, pleural effusion or pneumothorax. Bony thorax is intact. Visualized upper abdomen is within normal limits. XR/XR chest 2V IMPRESSION: No acute cardiopulmonary findings.
[2023-08-19 16:11] LABS: MANUAL DIFF FLAG NO
[2023-08-19 16:14] LABS: Basophils Percent Auto 0.4 % (0-2); Eosinophils Absolute Auto 0.2 X10*3/uL (0.0-0.4); Hematocrit 42.3 % (37.0-47.0); Hemoglobin 13.8 g/dl (12.0-16.0); Imm Gran Abs Auto 0.03 X10*3/uL (0.00-0.03); Imm Gran Pct Auto 0.3 % (0.0-0.4); Lymphocytes Absolute Auto 2.1 X10*3/uL (1.2-4.9); Lymphocytes Percent Auto 22.9 % (20-40); Mean Corpuscular HGB Conc 32.6 g/dl (31.0-35.0); Mean Corpuscular Hemoglobin 28.9 pg (27.0-33.0); Mean Corpuscular Volume 88.5 fL (80.0-98.0); Mean Platelet Volume 10.5 fL (9.4-12.3); Monocytes Absolute Auto 0.5 X10*3/uL (0.1-1.2); Monocytes Percent Auto 4.8 % (2-11); Neutrophils Absolute Auto 6.5 x10*3/uL (2.0-8.3); Neutrophils Percent Auto 69.6 % (45-73); Platelet Count 337 X10*3/uL (160-400); Red Blood Count 4.78 X10*6/uL (4.20-5.50); Red Cell Distribution Width 12.4 % (11.0-16.0); White Blood Count 9.4 X10*3/uL (4.8-10.8)
[2023-08-19 16:29] LABS: Alanine Aminotransferase 29 U/L (0-31); Albumin Level 4.5 g/dL (3.5-5.0); Alkaline Phosphatase 103 U/L (39-117); Anion Gap 14 (12-20); Aspartate Amino Transferase 24 U/L (5-31); Bilirubin Total 0.6 mg/dL (0.0-1.0); Blood Urea Nitrogen 13 mg/dL (9-16); Calcium 10.1 mg/dL (8.4-10.2); Carbon Dioxide 24 mmol/L (22-29); Chloride 106 mmol/L (96-108); Estimated Glomerular Filt Rate > 60; Glucose Random 89 mg/dL (60-115); Potassium 4.3 mmol/L (3.3-5.1); Sodium 140 mmol/L (135-145)
[2023-08-19 17:51] LABS: Influenza A PCR NEGATIVE (Negative); Influenza B PCR NEGATIVE (Negative); Resp Syncy Virus RNA Qual PCR NEGATIVE (Negative); SARS COV2 PCR INHOUSE NEGATIVE (Negative)
== END 2023-08-19 13:39 | disposition home or self-care (01) ==
LOC: HO.HMGCX 13:38
PROVIDERS: PCP Physician Assistant; Visit Provider Nurse Practitioner Primary Care
DX: D72.829 Elevated white blood cell count, unspecified (principal); R09.89 Other specified symptoms and signs involving the circulatory and respiratory systems; J06.9 Acute upper respiratory infection, unspecified; I15.9 Secondary hypertension, unspecified
CPT/HCPCS: 0241U; 36415; 71046; 80053; 85025

== ENCOUNTER 2023-09-18 09:16 | Outpatient (AMB) | payer OTHER, SELFPAY ==
--- NOTE | 2023-09-18 09:22 | MHC.PC.OV ---
Vital Signs 09/18/23 09:23 Height 5 ft Weight 180 lb BMI 35.2 BP 108/70 Blood Pressure Location Lt brachial Position Sitting Respiration 17 Pulse 94 Pulse Source Pulse Oximeter Pulse Oximetry (%) 98 Oxygen Delivery Method Room Air Intake Visit Reasons: [facility]/panic attacks/elevated thyroid levels Shellfish Grower Required: No Accompanied by: Self / Same As Patient Allergies nifedipine Adverse Reaction (Intermediate, Verified 09/18/23 09:29) Headache Medication List - Last Reconciled 09/18/23 by Orlando Lucio PA-C levothyroxine 25 mcg PO DAILY 30 days miscellaneous medical supply (Blood Pressure Cuff) As directed PNV,calcium 66-pukh-dadxz acid 27 mg iron- 1 mg ( Vitamins Plus Low Iron) 1 tab PO DAILY Tobacco use date assessed: 08/07/23 Dental Screening Dental Screen Date: 09/18/23 Did you have a dental visit in the last 12 months?: Yes Did you have a dental problem in the last 6 months where you did not have access to dental care?: No Was dental information given to patient?: Patient has dentist HPI [facility]/panic attacks/elevated thyroid levels HPI Details Patient is a 22-year-old female here today for an ER follow-up visit. She was seen at [facility] ER with acute chest discomfort, palpitations and anxious symptoms. Patient recently has given and has been experiencing anxiety. Her workup was unremarkable with the exception of an elevated TSH at 6. Previously TSH was at 12. She talked to her OBGYN whom believed her TSH was elevated due to hormonal shifts student . Will hold off on levothyroxine at this time and recheck TSH in 4 weeks being off of levothyroxine dose. Postmenopausal anxiety: Not interested in taking any daily medication at this time. Has trialed hydroxyzine though was ineffective and caused lethargy. She is now speaking with a mental health therapist at [facility]. Will supply patient with lorazepam 0.5 mg to use on a very limited p.r.n. basis for panic disorder. [facility] Medical History care in first trimester Spontaneous Healthy adult Surgical History No pertinent past surgical history Family History Mother No known health problems Father No known health problems Sister Type II diabetes mellitus Social History Housing: Apartment Alcohol intake: never Patient Tobacco Use Status: Never used Tobacco e-Cigarette/Vaping Use: Never Used Substance Use Type: Marijuana service: No Current occupational status: unemployed Cognitive needs: No Hearing needs: No Vision needs: Yes Questionnaire Thrive Questionnaire Date Thrive assessed: 08/07/23 RENETTA-7 AMB Questionnaire RENETTA-7 Date RENETTA - 7 assessed: 08/07/23 Source: Developed by Drs. Raymond Nails, Josy Victor, David Starkey and colleagues, with an educational valeri from [employer]. Review of Systems Const Denies headache(s) Eyes Denies loss of vision ENT Denies vertigo, Denies dizziness, Denies headache(s) and Denies sore throat Card Denies chest pain, Denies leg edema and Denies lightheadedness Resp Denies cough, Denies hemoptysis and Denies wheezing GI Denies abdominal pain, Denies melena, Denies constipation, Denies diarrhea and Denies vomiting Denies urinary frequency, Denies dysuria and Denies urinary urgency Musc Denies arthralgias, Denies joint swelling, Denies numbness and Denies tingling Neuro Denies Abnormal speech present, Denies behavioral changes, Denies vertigo, Denies dizziness, Denies headache(s), Denies loss of vision, Denies memory loss, Denies numbness and Denies tingling Psych Denies anxiety, Denies behavioral changes, Denies depression, Denies memory loss and Denies panic attacks Skyler/Lymph Denies easy bleeding and Denies easy bruising Aller/Immun Denies wheezing Physical exam (Primary Care) Vital Signs: Last Vital Signs Pulse 94 09/18/23 09:23 Resp 17 09/18/23 09:23 BP 108/70 09/18/23 09:23 Pulse Ox 98 09/18/23 09:23 Oxygen Delivery Method Room Air 09/18/23 09:23 BMI result Body Mass Index 35.2 Tobacco/Smoking Status: Tobacco use Status Tobacco use date assessed 08/07/23 09/18/23 09:27 Patient Tobacco Use Status Never used Tobacco 09/18/23 09:27 e-Cigarette/Vaping Use Never Used 09/18/23 09:27 Thrive Assessment: Date of Thrive Assessment Date Thrive assessed 08/07/23 09/18/23 09:27 Const General: healthy appearing, no acute distress, alert and awake Nutritional Appearance: well nourished Orientation/consciousness: oriented to person, oriented to place and oriented to time HENMT Ears: TM's normal bilaterally General nose exam: Normal nasal mucous membranes and turbinates present Eyes Conjunctivae: conjunctivae normal Sclerae: sclerae normal Pupils: Equal, round and reactive pupils present Neck Neck: Yes no lymphadenopathy and Yes no JVD Thyroid: Thyroid normal Carotids: no bruits Resp Effort & Inspection: normal respiratory effort and not tachypneic Auscultation: no crackles, no rales, no rhonchi and no wheezes Cardio Rate: regular rate Rhythm: regular rhythm Heart sounds: no murmurs and normal S1 and S2 GI Palpation (GI): Soft to palpation, nontender, no hepatomegaly and no splenomegaly Auscultation: normal bowel sounds Skin General skin exam: no rashes or lesions noted and dry skin Neuro General: oriented to person, oriented to place and oriented to time Cranial nerves: Yes Equal, round and reactive pupils present Speech: No Abnormal speech present Gait exam (Neuro): Normal gait present Motor exam (neuro): no tremor noted Extrem Right upper extremity: full ROM Left upper extremity: full ROM Right lower extremity: full ROM; no edema Left lower extremity: full ROM; no edema Psych Mental Status: mental status grossly normal Speech and movement: Normal speech and movement present Affect: normal affect Attitude: cooperative Thought process: Normal thought process present Assessment and Plan Assessment & Plan (1) Hypothyroid: Code(s): E03.9 - Hypothyroidism, unspecified Qualifiers: Hypothyroidism type: unspecified Qualified Code(s): E03.9 - Hypothyroidism, unspecified Plan: Patient is hypothyroid function likely secondary to for . Will hold off on levothyroxine for the next 4 weeks and recheck TSH to assure normalization of TSH. (2) anxiety: Code(s): O99.345 - Other mental disorders complicating the puerperium; F41.8 - Other specified anxiety disorders Plan: Still suffering with anxiety from time to time though reports she has been able to manage bit better. She still has panic thus will supply her with lorazepam 0.5 mg to use on an emergency basis only for panic. Orders: Orders TSH reflex Free T4 4 Weeks E03.9 - Hypothyroidism, unspecified Medications: New lorazepam 0.5 mg PO DAILY 3 days 3 tabs 0RF anxiety F41.0 - Panic disorder [episodic paroxysmal anxiety] Coding Level of Care Code Est Pt Level 4 (01475) Diagnoses Hypothyroidism, unspecified type E03.9 Hypothyroidism type: unspecified anxiety O99.345; F41.8
[2023-09-18 09:23] VITALS: BP 108/70; PULSE 94; RESP 17; O2SAT 98; BMI 35.2
== END 2023-09-18 09:49 | disposition home or self-care (01) ==
PROVIDERS: PCP Physician Assistant; Visit Provider Physician Assistant
DX: E03.9 Hypothyroidism, unspecified (principal); O99.345 Other mental disorders complicating the puerperium; F41.8 Other specified anxiety disorders
CPT/HCPCS: 99214

== ENCOUNTER 2023-10-05 18:08 | Emergency (ER) | payer OTHER, SELFPAY ==
--- NOTE | 2023-10-05 18:11 | ECG_ITS ---
Test Reason : CHEST PRESSURE Blood Pressure : / mmHG Vent. Rate : 097 BPM Atrial Rate : 097 BPM P-R Int : 174 ms QRS Dur : 084 ms QT Int : 346 ms P-R-T Axes : 054 035 001 degrees QTc Int : 439 ms Normal sinus rhythm with sinus arrhythmia Nonspecific T wave abnormality Abnormal ECG When compared with ECG of 01-AUG-2019 02:48, No significant change was found Referred By: Park Galvan Electronically Signed By:JENNIFER CLARKE
[2023-10-05 18:36] VITALS: BP 114/75; PULSE 88; RESP 16; TEMP 36.8; O2SAT 99; BMI 34.2
--- NOTE | 2023-10-05 18:41 | ED.GENADULT ---
HPI - General Adult General Chief complaint: Arrhythmia/Palpitations Stated complaint: palpations ,body aches Time Seen by Provider: 10/05/23 22:10 Related Data Home Medications ?Medication ?Instructions ?Recorded ?Confirmed vitamin with calcium 1 tab PO DAILY 03/17/23 09/18/23 no.72-iron 27 mg-folic acid 1 mg tablet ( Vitamins Plus Low Iron) Previous Rx's ?Medication ?Instructions ?Recorded miscellaneous medical supply #1 ea 08/07/23 (Blood Pressure Cuff) levothyroxine 25 mcg tablet 25 mcg PO DAILY 30 days #30 tabs 08/19/23 lorazepam 0.5 mg tablet 0.5 mg PO DAILY anxiety 3 days #3 09/18/23 tabs Allergies Allergy/AdvReac Type Severity Reaction Status Date / Time labetalol Allergy Swelling Verified 10/05/23 18:38 [facility] [place] Past Medical History Medical History care in first trimester Spontaneous Healthy adult Surgical History No pertinent past surgical history Family History Family History Mother No known health problems Father No known health problems Sister Type II diabetes mellitus Social History Social History Housing: Apartment Alcohol intake: never Patient Tobacco Use Status: Never used Tobacco e-Cigarette/Vaping Use: Never Used Substance Use Type: Marijuana Advance Directives: No Advance Directives Information Provided: No service: No Current occupational status: unemployed Cognitive needs: No Hearing needs: No Vision needs: Yes Physical Exam ED Vital Signs: Vital Signs - 24 hr 10/05/23 18:36 10/05/23 21:26 Temperature 98.3 F 98.2 F Pulse Rate 88 76 Respiratory Rate 16 17 Blood Pressure 114/75 116/76 Pulse Oximetry 99 99 Oxygen Delivery Method Room Air Room Air BMI result Body Mass Index 34.2 Course Course Course Narrative: This is an RME: Additional HPI, ROS, PE not included below will be deferred to primary provider. Patient is a 22-year-old female presenting to emergency department Complaining of 10 days with palpitations, headache, body aches, left hand pain, chest pain that radiates into her throat, feelings of shortness of breath while at rest without exerting herself, denying feelings of anxiety at this time. She reports in August of 2023, had abnormal thyroid levels, her primary care provider started her on levothyroxine, after less than 1 month of taking the medication she had a follow-up with her chief supply chain officer who advised her that these levels were likely due to her state advised her to stop taking levothyroxine, denies having any repeat blood work done. She reports approximately 1 week after stopping levothyroxine is when her symptoms began. She reports 2 days ago being seen at [facility] and was tested for COVID and flu which was negative and she states she was discharged home. Plan: EKG, labs Medical Decision Making Medical Decision Making [facility] Narrative: Differential diagnosis: ?Includes but is not limited to Following evaluation was ordered: CBC, CMP, magnesium, PT/INR,, troponin, urinalysis, EKG Patient was initially treated with the following: Course: 22:14 Laboratory evaluation is as follows: CBC was normal. PT/INR normal. Chloride low 109, ALT elevated 32. TSH elevated 6.83 with a normal T4 of 0.85. Urinalysis positive leukocyte esterase. Microscopic revealed 0-2 RBCs, 6-10 WBCs, trace bacteria-this is a non catch specimen. Lab Data 10/05/23 18:53 10/05/23 18:53 Labs: Lab Results 10/05/23 10/05/23 Range/Units 18:53 19:27 WBC 8.4 (4.8-10.8) X10*3/uL RBC 5.18 (4.20-5.50) X10*6/uL Hgb 14.6 (12.0-16.0) g/dl Hct 43.8 (37.0-47.0) % MCV 84.6 (80.0-98.0) fL MCH 28.2 (27.0-33.0) pg MCHC 33.3 (31.0-35.0) g/dl RDW 12.3 (11.0-16.0) % Plt Count 332 (160-400) X10*3/uL MPV 9.9 (9.4-12.3) fL Immature Gran % (Auto) 0.2 (0.0-0.4) % Neut % (Auto) 64.1 (45-73) % Lymph % (Auto) 29.5 (20-40) % Frederick % (Auto) 4.6 (2-11) % Eos % (Auto) 1.2 (0-4) % Baso % (Auto) 0.4 (0-2) % Lymph # (Auto) 2.5 (1.2-4.9) X10*3/uL Frederick # (Auto) 0.4 (0.1-1.2) X10*3/uL Eos # (Auto) 0.1 (0.0-0.4) X10*3/uL Baso # (Auto) 0.0 (0.0-0.2) X10*3/uL Abs Immat Gran (auto) 0.02 (0.00-0.03) X10*3/uL Absolute Neuts (auto) 5.4 (2.0-8.3) x10*3/uL Absolute Nucleated RBC 0.000 (0.0-0.012) X10*3/uL Nucleated RBC % (auto) 0.0 (0.0-0.2) /100WBC PT 12.3 (11.1-13.3) SEC INR 1.0 (0.9-1.1) Sodium 142 (135-145) mmol/L Potassium 3.8 (3.3-5.1) mmol/L Chloride 109 H (96-108) mmol/L Carbon Dioxide 24 (22-29) mmol/L Anion Gap 13 (12-20) BUN 12 (9-16) mg/dL Creatinine 0.78 (0.5-1.4) mg/dL Estim Creat Clear Calc 106.4 Estimated GFR > 60 Random Glucose 106 (60-115) mg/dL Calcium 9.9 (8.4-10.2) mg/dL Magnesium 2.0 (1.6-2.6) mg/dL Total Bilirubin 0.5 (0.0-1.0) mg/dL AST 21 (5-31) U/L ALT 32 H (0-31) U/L Alkaline Phosphatase 95 (39-117) U/L Troponin I High Sens < 2.7 (<3.5-17.0) ng/L Total Protein 8.2 H (6.5-8.0) g/dL Albumin 4.6 (3.5-5.0) g/dL TSH 6.83 H (0.32-4.0) uIU/mL Free T4 0.85 (0.71-1.85) ng/dL Urine Color Yellow Urine Appearance Cloudy Urine pH 6.0 (5.0-9.0) Ur Specific Galt 1.020 (1.005-1.025) Urine Protein Trace (Neg-Trace) mg/dL Urine Glucose (UA) Negative (Negative) mg/dL Urine Ketones Trace (Negative) mg/dL Urine Blood Negative (Negative) Urine Nitrite Negative (Negative) Ur Leukocyte Esterase Small (1+) H (Negative) Urine RBC 0-2 (0-2) /HPF Urine WBC 6-10 H (0-5) /HPF Ur Squamous Epith Cells 11-20 (0-2) /HPF Urine Bacteria Trace (None Seen) Hyaline Casts 0-2 (0-2) /LPF Discharge Plan Discharge Clinical Impression: Palpitation, Anxiety, Depression, Patient Disposition: Home, Self-Care Instructions: Hyperventilation (ED) Additional Instructions: Your blood work today was normal which is reassuring. Then elevated TSH (thyroid-stimulating hormone) which is a screening test for thyroid disease however your free T4 (measure of thyroid home) is normal therefore you do not in over under active thyroid and do not need thyroid medications, This time I believe that your symptoms are caused by anxiety and depression. After you are depression can be very severe and you need to get more help with depression anxiety and you may need to be on medications to help with these conditions. Continue to follow-up with your therapist but you should ask your therapist they can refer you to a prescribing provider to get you on medications. There several outpatient services that can help you get a prescribing provider N [phone], you can try [facility] or see HD as well Prescriptions: No Action levothyroxine 25 mcg tablet 25 mcg PO DAILY 30 Days Qty: 30 0RF Vitamin Plus Low Iron 27 mg iron- 1 mg tablet 1 tab PO DAILY lorazepam 0.5 mg tablet 0.5 mg PO DAILY 3 Days Qty: 3 0RF (DME) Blood Pressure Cuff Misc See Rx Instructions .ROUTE .MEDSUPPLY Qty: 1 0RF Rx Instructions: As directed Print Language: Tristanian
[2023-10-05 18:56] LABS: MANUAL DIFF FLAG NO
[2023-10-05 18:58] LABS: Basophils Percent Auto 0.4 % (0-2); Eosinophils Absolute Auto 0.1 X10*3/uL (0.0-0.4); Eosinophils Percent Auto 1.2 % (0-4); Hematocrit 43.8 % (37.0-47.0); Hemoglobin 14.6 g/dl (12.0-16.0); Imm Gran Abs Auto 0.02 X10*3/uL (0.00-0.03); Imm Gran Pct Auto 0.2 % (0.0-0.4); Lymphocytes Absolute Auto 2.5 X10*3/uL (1.2-4.9); Lymphocytes Percent Auto 29.5 % (20-40); Mean Corpuscular HGB Conc 33.3 g/dl (31.0-35.0); Mean Corpuscular Hemoglobin 28.2 pg (27.0-33.0); Mean Corpuscular Volume 84.6 fL (80.0-98.0); Mean Platelet Volume 9.9 fL (9.4-12.3); Monocytes Absolute Auto 0.4 X10*3/uL (0.1-1.2); Monocytes Percent Auto 4.6 % (2-11); Neutrophils Absolute Auto 5.4 x10*3/uL (2.0-8.3); Neutrophils Percent Auto 64.1 % (45-73); Platelet Count 332 X10*3/uL (160-400); Red Blood Count 5.18 X10*6/uL (4.20-5.50); Red Cell Distribution Width 12.3 % (11.0-16.0); White Blood Count 8.4 X10*3/uL (4.8-10.8)
[2023-10-05 19:03] LABS: Prothrombin Time 12.3 SEC (11.1-13.3)
[2023-10-05 19:30] LABS: Alanine Aminotransferase 32 U/L (0-31); Albumin Level 4.6 g/dL (3.5-5.0); Alkaline Phosphatase 95 U/L (39-117); Anion Gap 13 (12-20); Aspartate Amino Transferase 21 U/L (5-31); Bilirubin Total 0.5 mg/dL (0.0-1.0); Blood Urea Nitrogen 12 mg/dL (9-16); Calcium 9.9 mg/dL (8.4-10.2); Carbon Dioxide 24 mmol/L (22-29); Chloride 109 mmol/L (96-108); Creatinine Clr Calc Pharmacy 106.4; Estimated Glomerular Filt Rate > 60; Glucose Random 106 mg/dL (60-115); Potassium 3.8 mmol/L (3.3-5.1); Sodium 142 mmol/L (135-145); Total Protein 8.2 g/dL (6.5-8.0)
[2023-10-05 19:31] LABS: Troponin-I High Sensitivity < 2.7 ng/L (<3.5-17.0)
[2023-10-05 19:34] LABS: Appearance Urine Cloudy; Color Urine Yellow; Glucose Urine UA Negative (Negative); Leukocyte Esterase Urine Small (1+) (Negative); Nitrite Urine Negative (Negative); UMIC TRIGGER UACC YES; Urine Blood Negative (Negative); Urine Ketones Trace mg/dL (Negative); Urine Protein Trace mg/dL (Neg-Trace)
[2023-10-05 19:39] LABS: Bacteria Urine Trace (None Seen); Hyaline Casts Urine 0-2 /LPF (0-2); RBC Urine 0-2 /HPF (0-2); UACC Culture Trigger YES
[2023-10-05 19:44] LABS: TSH reflex Free T4 6.83 uIU/mL (0.32-4.0)
[2023-10-05 20:32] LABS: Free T4 (Free Thyroxine) 0.85 ng/dL (0.71-1.85)
[2023-10-05 21:26] VITALS: BP 116/76; PULSE 76; RESP 17; TEMP 36.8; O2SAT 99
[2023-10-05 22:50] VITALS: BP 116/76; PULSE 76; RESP 17; TEMP 36.8; O2SAT 99
== END 2023-10-05 22:50 | disposition home or self-care (01) ==
PROVIDERS: Nurse Practitioner Family; Emergency Provider Emergency Medicine Emergency Medical Services; PCP Physician Assistant
DX: O90.89 Other complications of the puerperium, not elsewhere classified (principal); R00.2 Palpitations; O99.345 Other mental disorders complicating the puerperium; F53.0 Postpartum depression; F41.9 Anxiety disorder, unspecified
CPT/HCPCS: 36415; 80053; 81001; 83735; 84439; 84443; 84484; 85025; 85610; 87086; 93005; 99283; 99284

== ENCOUNTER → 2023-10-05 18:11 | Outpatient (BNV) | payer OTHER, SELFPAY | PROVIDERS: Emergency Provider Emergency Medicine Emergency Medical Services; PCP Physician Assistant; Visit Provider Internal Medicine | DX: R94.31 Abnormal electrocardiogram [ECG] [EKG] (principal) | CPT/HCPCS: 93010 ==

== ENCOUNTER 2023-10-10 19:36 | Emergency (ER) | payer OTHER, SELFPAY ==
--- NOTE | 2023-10-10 | ECG_ITS ---
Test Reason : CHEST PAIN Blood Pressure : / mmHG Vent. Rate : 088 BPM Atrial Rate : 088 BPM P-R Int : 174 ms QRS Dur : 082 ms QT Int : 354 ms P-R-T Axes : 038 031 010 degrees QTc Int : 428 ms Normal sinus rhythm Nonspecific ST and T wave abnormality Borderline ECG When compared with ECG of 05-OCT-2023 18:17, No significant change was found Referred By: Generic ED Physician Electronically Signed By:JENNIFER CLARKE
[2023-10-10 19:44] VITALS: BP 129/89; BP 131/88; PULSE 88; PULSE 96; RESP 20; TEMP 36.8; O2SAT 97; O2SAT 99; BMI 34.6
--- NOTE | 2023-10-10 19:59 | ED.SYNCOPE ---
HPI - Syncope General Chief Complaint: Syncope Stated Complaint: passed out in vehicle, hx of anxiety, may be relat Time Seen by Provider: 10/10/23 19:45 Source: patient and EMS Mode of arrival: EMS Limitations: no limitations History of Present Illness HPI narrative: 22-year-old female presents to the ER for evaluation with panic attack and syncopal event. Patient states she was hyperventilating, developed numbness and tingling in her hands and then passed out. This was witnessed by her significant other. She has increased stress and anxiety since giving to her son in July. She states she has panic attacks every night and can not be alone. She states she was given medication for anxiety but they make her lethargic and she is afraid of dropping her baby. She denies any depression, thoughts of harming herself or her baby. She states her anxiety is crippling and it is getting worse. Patient was seen here 5 days ago for anxiety and panic as well. MD complaint: loss of consciousness Prodromal symptoms: palpitations, heart racing and shortness of breath Witnessed: Yes - by Other Context: at rest Injuries sustained associated with event: none Current symptoms: back to baseline Treatments prior to arrival: none Related Data Home Medications ?Medication ?Instructions ?Recorded ?Confirmed vitamin with calcium 1 tab PO DAILY 03/17/23 09/18/23 no.72-iron 27 mg-folic acid 1 mg tablet ( Vitamins Plus Low Iron) Previous Rx's ?Medication ?Instructions ?Recorded miscellaneous medical supply #1 ea 08/07/23 (Blood Pressure Cuff) levothyroxine 25 mcg tablet 25 mcg PO DAILY 30 days #30 tabs 08/19/23 lorazepam 0.5 mg tablet 0.5 mg PO DAILY anxiety 3 days #3 09/18/23 tabs Allergies Allergy/AdvReac Type Severity Reaction Status Date / Time labetalol Allergy Swelling Verified 10/10/23 19:47 Review of Systems Review of Systems: Yes all other systems are reviewed and are negative [facility] Past Medical History Medical History care in first trimester Spontaneous Healthy adult Surgical History No pertinent past surgical history Family History Family History Mother No known health problems Father No known health problems Sister Type II diabetes mellitus Social History Social History Housing: Apartment Alcohol intake: never Patient Tobacco Use Status: Never used Tobacco e-Cigarette/Vaping Use: Never Used Substance Use Type: Marijuana Advance Directives: No Advance Directives Information Provided: No service: No Current occupational status: unemployed Cognitive needs: No Hearing needs: No Vision needs: Yes Physical Exam Vital Signs: Vital Signs: Last Vital Signs Temp 97.8 F 10/11/23 00:22 Pulse 89 10/11/23 00:22 Resp 20 10/11/23 00:22 BP 121/70 10/11/23 00:22 Pulse Ox 98 10/11/23 00:22 O2 Del Method Room Air 10/11/23 00:22 BMI result Body Mass Index 34.6 Appearance: Alert. Oriented X3. Tearful, hyperventilating, talking on the phone to a friend Head: normocephalic, atraumatic. Eyes: Pupils equal, round and reactive to light. ENT: Pharynx normal. No tonsillar swelling or exudate. Neck: Normal inspection. Neck supple. CVS: Normal heart rate and rhythm. Pulses normal. Respiratory: No respiratory distress. Breath sounds normal. Abdomen: Soft and nontender. +BS x4 Skin: Skin warm and dry. Normal skin color. Normal skin turgor. No rashes. Extremities: No lower extremity edema. No joint swelling. Neuro/psych: Oriented X 3. No motor deficit. No sensory deficit. CN II-XII intact. Normal speech and cognition. Anxious, hyperventilating, tremulous. Course Reevaluation(s) Reevaluation #1: observation care revealed the patient does not meet psychiatric necessity for hospitalization. final disposition discussed with the patient. the patient completed observation care at 12:30am, total time in observation was 3 hours. Time: 00:30 Medications Administered Discontinued Medications Generic Name Dose Route Start Last Admin Trade Name Freq PRN Reason Stop Dose Admin Lorazepam 1 mg 10/10/23 20:21 10/10/23 20:31 Lorazepam 1 Mg Tablet PO 10/10/23 20:22 1 mg ONCE ONE Administration Medical Decision Making Medical Decision Making [facility] Narrative: 22-year-old female with recently diagnosed anxiety, recently taken off of her levothyroxine and nifedipine presents to the ER for evaluation of a panic attack and syncope. This was in the setting of hyperventilation episode and panic attack. Patient states she has been having daily panic attacks. She can not be alone. Patient basic labs were repeated. She had a normal T4 done on 10/04. Doubt that any thyroid dysfunction is adding to her anxious state. Patient is medically cleared. She was given 1 mg of Ativan and feels improved. Will place patient physician observation have her seen by the care team given this is her 2nd emergency room visit for severe anxiety. Concern about safety taking care of her new infant at home. Patient was seen and evaluated by the care team. Safety plan was established. Patient is stable for discharge with outpatient resources. Differential Diagnosis Differential Diagnoses: The differential diagnosis associated with the presentation includes substance induced mood disorder, acute psychosis, depression, psychosis, PTSD, bipolar disorder, major depression with psychotic features Admission/Observation Consideration of admission/observation: Escalation of care including admission/observation considered Lab Data [facility] Lab Attestation statement: I reviewed the patient's lab results. No leukocytosis, no anemia, no major metabolic derangement 10/10/23 19:54 10/10/23 19:54 Labs: Lab Results 10/10/23 10/10/23 Range/Units 19:54 23:05 WBC 8.5 (4.8-10.8) X10*3/uL RBC 4.93 (4.20-5.50) X10*6/uL Hgb 14.1 (12.0-16.0) g/dl Hct 42.0 (37.0-47.0) % MCV 85.2 (80.0-98.0) fL MCH 28.6 (27.0-33.0) pg MCHC 33.6 (31.0-35.0) g/dl RDW 12.3 (11.0-16.0) % Plt Count 296 (160-400) X10*3/uL MPV 10.0 (9.4-12.3) fL Absolute Nucleated RBC 0.000 (0.0-0.012) X10*3/uL Nucleated RBC % (auto) 0.0 (0.0-0.2) /100WBC Sodium 142 (135-145) mmol/L Potassium 3.6 (3.3-5.1) mmol/L Chloride 110 H (96-108) mmol/L Carbon Dioxide 24 (22-29) mmol/L Anion Gap 12 (12-20) BUN 16 (9-16) mg/dL Creatinine 0.75 (0.5-1.4) mg/dL Estim Creat Clear Calc 115.9 Estimated GFR > 60 Random Glucose 87 (60-115) mg/dL Calcium 10.0 (8.4-10.2) mg/dL Total Bilirubin 0.3 (0.0-1.0) mg/dL AST 28 (5-31) U/L ALT 40 H (0-31) U/L Alkaline Phosphatase 98 (39-117) U/L Total Protein 7.8 (6.5-8.0) g/dL Albumin 4.5 (3.5-5.0) g/dL Beta HCG, Quant < 2 mIU/mL Urine Opiates Screen Not Detected (Not Detect) Ur Buprenorphine Scrn Not Detected (Not Detect) ng/mL Ur Oxycodone Screen Not Detected (Not Detect) ng/mL Urine Methadone Screen Not Detected (Not Detect) ng/mL Urine Fentanyl Screen Not Detected (Not Detect) Ur Barbiturates Screen Not Detected (Not Detect) Ur Phencyclidine Scrn Not Detected (Not Detect) Ur Amphetamines Screen Not Detected (Not Detect) U Benzodiazepines Scrn Not Detected (Not Detect) Urine Cocaine Screen Not Detected (Not Detect) U Marijuana (THC) Screen Not Detected (Not Detect) Ethyl Alcohol < 10 mg/dL Independent Interpretation I performed an independent interpretation of an: EKG Interpretation: EKG with normal sinus rhythm, ventricular rate 80 beats per minute, normal VT interval, normal QTC, no ST segment elevations or depressions. Independent Historian Clinical information obtained from an independent historian. History obtained from or confirmed by: EMS External Record Review External record reviewed: Outpatient record, Prior outpatient labs and Prior outpatient radiology Prescription Management I considered prescription management with: Other (Anxiolytic) Chronic Conditions Patient?s care impacted by: Other ( anxiety) Critical Care Time Critical Care Time Critical Care Time: No Discharge Plan Discharge Clinical Impression: anxiety Patient Disposition: Home, Self-Care Instructions: Anxiety (ED) Additional Instructions: Follow-up with your therapist. Recommend getting a psychiatrist. Follow the safety plan provided. If you develop new or worsening symptoms call 911 or come back to the ER for further evaluation. Prescriptions: No Action levothyroxine 25 mcg tablet 25 mcg PO DAILY 30 Days Qty: 30 0RF Vitamin Plus Low Iron 27 mg iron- 1 mg tablet 1 tab PO DAILY lorazepam 0.5 mg tablet 0.5 mg PO DAILY 3 Days Qty: 3 0RF (DME) Blood Pressure Cuff Misc See Rx Instructions .ROUTE .MEDSUPPLY Qty: 1 0RF Rx Instructions: As directed Print Language: Georgian
[2023-10-10 20:00] LABS: Hemoglobin 14.1 g/dl (12.0-16.0); Mean Corpuscular HGB Conc 33.6 g/dl (31.0-35.0); Mean Corpuscular Hemoglobin 28.6 pg (27.0-33.0); Mean Corpuscular Volume 85.2 fL (80.0-98.0); Platelet Count 296 X10*3/uL (160-400); Red Blood Count 4.93 X10*6/uL (4.20-5.50); Red Cell Distribution Width 12.3 % (11.0-16.0); White Blood Count 8.5 X10*3/uL (4.8-10.8)
[2023-10-10 20:11] VITALS: O2SAT 97
[2023-10-10 20:16] LABS: Ethanol < 10 mg/dL
[2023-10-10 20:28] LABS: Alanine Aminotransferase 40 U/L (0-31); Albumin Level 4.5 g/dL (3.5-5.0); Alkaline Phosphatase 98 U/L (39-117); Anion Gap 12 (12-20); Aspartate Amino Transferase 28 U/L (5-31); Bilirubin Total 0.3 mg/dL (0.0-1.0); Blood Urea Nitrogen 16 mg/dL (9-16); Carbon Dioxide 24 mmol/L (22-29); Chloride 110 mmol/L (96-108); Creatinine Clr Calc Pharmacy 115.9; Estimated Glomerular Filt Rate > 60; Glucose Random 87 mg/dL (60-115); HCG Quantitative < 2 mIU/mL; Potassium 3.6 mmol/L (3.3-5.1); Sodium 142 mmol/L (135-145); Total Protein 7.8 g/dL (6.5-8.0)
[2023-10-10] MEDS: LORazepam 1 MG TABLET PO (20:31)
--- NOTE | 2023-10-10 22:23 | PC.NURSE ---
Pt resting comfortably in stretcher. Awaiting Care team consult
--- NOTE | 2023-10-10 23:07 | PC.NURSE ---
Pt ambulatory independently to restroom to provide urine specimen. Collected and sent to lab.
[2023-10-10 23:20] LABS: Amphetamine Screen Urine Not Detected (Not Detect); Barbiturates, Urine Not Detected (Not Detect); Benzodiazepines Screen Urine Not Detected (Not Detect); Buprenorphine Scr Not Detected (Not Detect); Cannabinoid Screen Urine Not Detected (Not Detect); Cocaine Screen Urine Not Detected (Not Detect); Fentanyl, urine Not Detected (Not Detect); Methadone Screen, Urine Not Detected (Not Detect); Opiate Screen Urine Not Detected (Not Detect); Oxycodone Screen Urine Not Detected (Not Detect); Phencyclidine Screen Urine Not Detected (Not Detect)
[2023-10-11 00:22] VITALS: BP 121/70; PULSE 89; RESP 20; TEMP 36.6; O2SAT 98
[2023-10-11 00:50] VITALS: BP 121/70; PULSE 89; RESP 20; TEMP 36.6; O2SAT 98
== END 2023-10-11 00:51 | disposition home or self-care (01) ==
PROVIDERS: Physician Assistant; Emergency Provider Emergency Medicine
DX: O99.345 Other mental disorders complicating the puerperium (principal); F41.9 Anxiety disorder, unspecified
CPT/HCPCS: 36415; 80053; 80307; 84702; 85027; 93005; 99285; S9485

== ENCOUNTER → 2023-10-10 19:44 | Outpatient (BNV) | payer OTHER, SELFPAY | PROVIDERS: Emergency Provider Emergency Medicine; Visit Provider Internal Medicine | DX: R07.9 Chest pain, unspecified (principal) | CPT/HCPCS: 93010 ==

== ENCOUNTER 2023-10-16 20:56 | Emergency (ER) | payer OTHER, SELFPAY ==
[2023-10-16 21:00] VITALS: BP 126/82; PULSE 92; O2SAT 98
[2023-10-16 21:03] VITALS: BP 126/89; PULSE 103; RESP 16; TEMP 37.1; O2SAT 98; BMI 33.6
[2023-10-16 22:23] VITALS: BP 123/83; PULSE 78; RESP 16
[2023-10-16 23:23] VITALS: BP 119/83; PULSE 82; RESP 18; TEMP 36.7; O2SAT 100
--- NOTE | 2023-10-16 23:26 | PC.NURSE ---
assumed care of pt
--- NOTE | 2023-10-16 23:44 | MHC.EDTECH ---
Late entry for 2100,patient changed into hospital attire,vitals taken,call mcconnell in reach.
--- NOTE | 2023-10-16 23:46 | MHC.EDTECH ---
Patient ambulated to the bathroom with a steady gait,urine sample and labs obtained and sent to lab.
[2023-10-16 23:47] LABS: MANUAL DIFF FLAG NO
[2023-10-16 23:53] LABS: Basophils Percent Auto 0.3 % (0-2); Eosinophils Absolute Auto 0.1 X10*3/uL (0.0-0.4); Eosinophils Percent Auto 1.1 % (0-4); Hematocrit 42.6 % (37.0-47.0); Hemoglobin 14.3 g/dl (12.0-16.0); Imm Gran Abs Auto 0.02 X10*3/uL (0.00-0.03); Imm Gran Pct Auto 0.2 % (0.0-0.4); Lymphocytes Absolute Auto 2.9 X10*3/uL (1.2-4.9); Lymphocytes Percent Auto 32.8 % (20-40); Mean Corpuscular HGB Conc 33.6 g/dl (31.0-35.0); Mean Corpuscular Hemoglobin 28.3 pg (27.0-33.0); Mean Corpuscular Volume 84.2 fL (80.0-98.0); Mean Platelet Volume 9.8 fL (9.4-12.3); Monocytes Absolute Auto 0.4 X10*3/uL (0.1-1.2); Monocytes Percent Auto 4.8 % (2-11); Neutrophils Absolute Auto 5.4 x10*3/uL (2.0-8.3); Neutrophils Percent Auto 60.8 % (45-73); Platelet Count 337 X10*3/uL (160-400); Red Blood Count 5.06 X10*6/uL (4.20-5.50); Red Cell Distribution Width 12.1 % (11.0-16.0); White Blood Count 8.9 X10*3/uL (4.8-10.8)
[2023-10-16 23:57] LABS: Appearance Urine Cloudy; Glucose Urine UA Negative (Negative); Leukocyte Esterase Urine Moderate (2+) (Negative); Nitrite Urine Negative (Negative); PH 7.5 (5.0-9.0); UMIC TRIGGER UACC YES; Urine Blood Large (3+) (Negative); Urine Ketones Trace mg/dL (Negative); Urine Protein 30 (1+) mg/dL (Neg-Trace)
[2023-10-16 23:58] LABS: Color Urine Yellow
[2023-10-17] LABS: Bacteria Urine None Seen (None Seen); Hyaline Casts Urine 0-2 /LPF (0-2); RBC Urine >20 /HPF (0-2); UACC Culture Trigger YES; WBC Urine 21-50 /HPF (0-5)
[2023-10-17 00:16] LABS: Alanine Aminotransferase 35 U/L (0-31); Albumin Level 4.5 g/dL (3.5-5.0); Alkaline Phosphatase 90 U/L (39-117); Anion Gap 12 (12-20); Aspartate Amino Transferase 21 U/L (5-31); Bilirubin Total 0.5 mg/dL (0.0-1.0); Blood Urea Nitrogen 11 mg/dL (9-16); Calcium 9.9 mg/dL (8.4-10.2); Carbon Dioxide 24 mmol/L (22-29); Chloride 110 mmol/L (96-108); Creatinine Clr Calc Pharmacy 114.1; Estimated Glomerular Filt Rate > 60; Glucose Random 91 mg/dL (60-115); Potassium 3.5 mmol/L (3.3-5.1); Sodium 142 mmol/L (135-145); Total Protein 7.9 g/dL (6.5-8.0)
[2023-10-17 00:58] LABS: Amphetamine Screen Urine Not Detected (Not Detect); Barbiturates, Urine Not Detected (Not Detect); Benzodiazepines Screen Urine Not Detected (Not Detect); Buprenorphine Scr Not Detected (Not Detect); Cannabinoid Screen Urine Not Detected (Not Detect); Cocaine Screen Urine Not Detected (Not Detect); Fentanyl, urine Not Detected (Not Detect); Methadone Screen, Urine Not Detected (Not Detect); Opiate Screen Urine Not Detected (Not Detect); Oxycodone Screen Urine Not Detected (Not Detect); Phencyclidine Screen Urine Not Detected (Not Detect)
--- NOTE | 2023-10-17 02:16 | ED_ITS ---
HPI - General Adult General Chief complaint: General Medical Stated complaint: syncope Time Seen by Provider: 10/17/23 02:16 History of Present Illness HPI narrative: The patient is a 22-year-old female who is 3 months . Prior to her she has been on thyroid replacement hormone. Since delivery however she has been off her thyroid hormone because her field artillery crewmember apparently thought her hypothyroidism might be related to her . The patient has been feeling very emotional and panicky over the last several weeks. I believe she was seen at the emergency room at [facility] following what she thought was a panic attack associated with a syncopal episode. Apparently there was a discussion about her thyroid at that time. She thinks that her TSH at [facility] was 18 at that time. Nevertheless she was told that she should not have thyroid replacement hormone. The patient was seen 1 month ago by Orlando Lucio PA-C, her primary care provider 1 month ago. His note indicates that the obstetricians had recommended against restarting thyroid hormone and he documents a plan to repeat her thyroid levels soon. This is not yet happened. Today the patient had what she thought was a panic attack and then apparently passed out. An ambulance was called and she was brought to the hospital. She says that she has been feeling very sad and panicky and having a sense that there is something wrong with her body that she thinks is likely related to her thyroid problems. Related Data Home Medications ?Medication ?Instructions ?Recorded ?Confirmed vitamin with calcium 1 tab PO DAILY 03/17/23 09/18/23 no.72-iron 27 mg-folic acid 1 mg tablet ( Vitamins Plus Low Iron) Previous Rx's ?Medication ?Instructions ?Recorded miscellaneous medical supply #1 ea 08/07/23 (Blood Pressure Cuff) levothyroxine 25 mcg tablet 25 mcg PO DAILY 30 days #30 tabs 08/19/23 lorazepam 0.5 mg tablet 0.5 mg PO DAILY anxiety 3 days #3 09/18/23 tabs levothyroxine 25 mcg capsule 25 mcg PO DAILY #30 caps 10/17/23 Allergies Allergy/AdvReac Type Severity Reaction Status Date / Time labetalol Allergy Swelling Verified 10/10/23 19:47 Seasonal Allergies Allergy Headache Verified 10/16/23 21:09 Review of Systems 2 Review of Systems: Yes all other systems are reviewed and are negative PMFSH Past Medical History Medical History care in first trimester Spontaneous Healthy adult Surgical History No pertinent past surgical history Family History Family History Mother No known health problems Father No known health problems Sister Type II diabetes mellitus Social History Social History Housing: Apartment Alcohol intake: never Patient Tobacco Use Status: Never used Tobacco Smoked in Last 30 Days: No e-Cigarette/Vaping Use: Never Used Use of substances other than those prescribed or required for medical reasons: No Substance Use Type: Marijuana Advance Directives: No Advance Directives Information Provided: No Do you have a plan to hurt others: No Plan Patient : No (post 3 months) service: No Current occupational status: unemployed Cognitive needs: No Hearing needs: No Vision needs: Yes Physical Exam ED Vital Signs: Vital Signs - 24 hr 10/16/23 21:03 10/16/23 22:23 10/16/23 23:23 Temperature 98.7 F 98.0 F Pulse Rate 103 H 78 82 Respiratory Rate 16 16 18 Blood Pressure 126/89 123/83 119/83 Pulse Oximetry 98 100 Oxygen Delivery Method Room Air Room Air 10/17/23 04:18 Temperature 98.8 F Pulse Rate 88 Respiratory Rate 15 Blood Pressure 131/77 Pulse Oximetry 99 Oxygen Delivery Method Room Air BMI result Body Mass Index 33.6 Const Other: The patient was sleeping quite soundly when I first went to see her. Ultimately I was able to wake her. She seemed anxious. She ultimately became quite tearful. She did not seem in any distress or obviously ill in any way. HENMT Other: Symmetrical, mucous membranes moist. Eyes Other: Pupils are round equal, conjunctivae clear, no scleral icterus. Resp Effort & Inspection: normal respiratory effort Auscultation: clear to auscultation bilaterally Cardio Rate: regular rate Rhythm: regular rhythm Heart sounds: S1 normal heart sound present and S2 normal heart sound present GI Other: Abdomen is soft and nontender Skin Other: Skin is dry and unremarkable Neuro Other: Cranial nerves 2-12 are intact. She moves her extremities normally. She seems grossly neurologically intact. Extrem Other: No peripheral edema Medical Decision Making Medical Decision Making MDM Narrative: The patient is a 22-year-old female who presented to the emergency room after of an apparent syncopal episode at home. The patient became very tearful when I spoke to her to the point where it was hard to get a good history. She was able to say that she thought she was having a panic attack when she passed out and then was brought to the hospital. When I asked her what might have caused the panic attack she became quite tearful and it was difficult to take the conversation significantly further. Ultimately she was able to say that she has been feeling very emotional ever since she stopped taking levothyroxine and she is frustrated that she has not been represcribed levothyroxine since her . Given this complaint I added on a TSH to her lab work. Her TSH today is 24. Ten days ago her TSH was 6.8. The patient was previously on 25 mcg of levothyroxine daily. Given the significant rise in her TSH over the last couple of weeks I think it would be reasonable for me to prescribe one-month worth of thyroxine for the patient. I therefore prescribed 1 month of 25 mcg of levothyroxine daily. She seemed very relieved that the idea of receiving this prescription. She should follow up with her regular doctor for ongoing management. I added on a free T4 to help her regular doctor make additional decisions. Lab Data 10/16/23 23:37 10/16/23 23:37 Labs: Lab Results 10/16/23 Range/Units 23:37 WBC 8.9 (4.8-10.8) X10*3/uL RBC 5.06 (4.20-5.50) X10*6/uL Hgb 14.3 (12.0-16.0) g/dl Hct 42.6 (37.0-47.0) % MCV 84.2 (80.0-98.0) fL MCH 28.3 (27.0-33.0) pg MCHC 33.6 (31.0-35.0) g/dl RDW 12.1 (11.0-16.0) % Plt Count 337 (160-400) X10*3/uL MPV 9.8 (9.4-12.3) fL Immature Gran % (Auto) 0.2 (0.0-0.4) % Neut % (Auto) 60.8 (45-73) % Lymph % (Auto) 32.8 (20-40) % [place] % (Auto) 4.8 (2-11) % Eos % (Auto) 1.1 (0-4) % Baso % (Auto) 0.3 (0-2) % Lymph # (Auto) 2.9 (1.2-4.9) X10*3/uL [place] # (Auto) 0.4 (0.1-1.2) X10*3/uL Eos # (Auto) 0.1 (0.0-0.4) X10*3/uL Baso # (Auto) 0.0 (0.0-0.2) X10*3/uL Abs Immat Gran (auto) 0.02 (0.00-0.03) X10*3/uL Absolute Neuts (auto) 5.4 (2.0-8.3) x10*3/uL Absolute Nucleated RBC 0.000 (0.0-0.012) X10*3/uL Nucleated RBC % (auto) 0.0 (0.0-0.2) /100WBC Sodium 142 (135-145) mmol/L Potassium 3.5 (3.3-5.1) mmol/L Chloride 110 H (96-108) mmol/L Carbon Dioxide 24 (22-29) mmol/L Anion Gap 12 (12-20) BUN 11 (9-16) mg/dL Creatinine 0.75 (0.5-1.4) mg/dL Estim Creat Clear Calc 114.1 Estimated GFR > 60 Random Glucose 91 (60-115) mg/dL Calcium 9.9 (8.4-10.2) mg/dL Total Bilirubin 0.5 (0.0-1.0) mg/dL AST 21 (5-31) U/L ALT 35 H (0-31) U/L Alkaline Phosphatase 90 (39-117) U/L Total Protein 7.9 (6.5-8.0) g/dL Albumin 4.5 (3.5-5.0) g/dL TSH 24.69 H (0.32-4.0) uIU/mL Free T4 0.77 (0.71-1.85) ng/dL Urine Color Yellow Urine Appearance Cloudy Urine pH 7.5 (5.0-9.0) Ur Specific [place] 1.020 (1.005-1.025) Urine Protein 30 (1+) H (Neg-Trace) mg/dL Urine Glucose (UA) Negative (Negative) mg/dL Urine Ketones Trace (Negative) mg/dL Urine Blood Large (3+) H (Negative) Urine Nitrite Negative (Negative) Ur Leukocyte Esterase Moderate (2+) H (Negative) Urine RBC >20 H (0-2) /HPF Urine WBC 21-50 H (0-5) /HPF Ur Squamous Epith Cells 3-5 (0-2) /HPF Urine Bacteria None Seen (None Seen) Hyaline Casts 0-2 (0-2) /LPF Urine Opiates Screen Not Detected (Not Detect) Ur Buprenorphine Scrn Not Detected (Not Detect) ng/mL Ur Oxycodone Screen Not Detected (Not Detect) ng/mL Urine Methadone Screen Not Detected (Not Detect) ng/mL Urine Fentanyl Screen Not Detected (Not Detect) Ur Barbiturates Screen Not Detected (Not Detect) Ur Phencyclidine Scrn Not Detected (Not Detect) Ur Amphetamines Screen Not Detected (Not Detect) U Benzodiazepines Scrn Not Detected (Not Detect) Urine Cocaine Screen Not Detected (Not Detect) U Marijuana (THC) Screen Not Detected (Not Detect) Discharge Plan Discharge Clinical Impression: Episode of syncope, Elevated TSH Patient Disposition: Home, Self-Care Additional Instructions: I have sent a prescription for additional thyroid replacement hormone to your pharmacy. Please start taking this when you pick it up later this morning. It is usually recommended that you take your thyroid replacement hormone on an empty stomach in the morning. Please also work on making a follow up appointment with the primary care provider. If this is Orlando Lucio please follow up with Orlando Lucio. If you are working on getting a new primary care doctor please continue your efforts to get a new primary care doctor. Return to the emergency room if worse. Prescriptions: New levothyroxine 25 mcg capsule 25 mcg PO DAILY Qty: 30 0RF No Action levothyroxine 25 mcg tablet 25 mcg PO DAILY 30 Days Qty: 30 0RF Vitamin Plus Low Iron 27 mg iron- 1 mg tablet 1 tab PO DAILY lorazepam 0.5 mg tablet 0.5 mg PO DAILY 3 Days Qty: 3 0RF (DME) Blood Pressure Cuff Misc See Rx Instructions .ROUTE .MEDSUPPLY Qty: 1 0RF Rx Instructions: As directed Referrals: Orlando Lucio PA-C [Physician Cardiovascular Disease Specialist] - (Elevated TSH) Interventions: ED Discharge Assessment Last Done: 10/17/23 04:18 Discharge Date/Time: 10/17/23 04:19 Print Language: [place]
[2023-10-17 03:24] LABS: Thyroid Stimulating Hormone 24.69 uIU/mL (0.32-4.0)
[2023-10-17 04:18] VITALS: BP 131/77; PULSE 88; RESP 15; TEMP 37.1; O2SAT 99
[2023-10-17 04:30] LABS: Free T4 (Free Thyroxine) 0.77 ng/dL (0.71-1.85)
== END 2023-10-17 04:19 | disposition home or self-care (01) ==
PROVIDERS: Emergency Provider Emergency Medicine
DX: R55 Syncope and collapse (principal); R94.6 Abnormal results of thyroid function studies; Z79.899 Other long term (current) drug therapy
CPT/HCPCS: 36415; 80053; 80307; 81001; 84439; 84443; 85025; 87086; 87147; 99284

== ENCOUNTER 2023-10-20 10:04 | Emergency (ER) | payer OTHER, SELFPAY ==
--- NOTE | 2023-10-20 10:06 | ECG_ITS ---
Test Reason : CHEST PAIN Blood Pressure : / mmHG Vent. Rate : 069 BPM Atrial Rate : 069 BPM P-R Int : 184 ms QRS Dur : 090 ms QT Int : 410 ms P-R-T Axes : 038 018 001 degrees QTc Int : 439 ms Normal sinus rhythm with sinus arrhythmia Nonspecific T wave abnormality Abnormal ECG When compared with ECG of 10-OCT-2023 19:44, No significant change was found Referred By: Generic ED Physician Electronically Signed By:JENNIFER CLARKE
[2023-10-20 10:24] VITALS: BP 126/83; BP 136/80; PULSE 81; PULSE 86; RESP 16; TEMP 36.1; O2SAT 97; O2SAT 98; BMI 32.3
[2023-10-20 11:22] LABS: MANUAL DIFF FLAG NO
[2023-10-20 11:28] LABS: Basophils Percent Auto 0.4 % (0-2); Eosinophils Absolute Auto 0.1 X10*3/uL (0.0-0.4); Eosinophils Percent Auto 1.1 % (0-4); Imm Gran Abs Auto 0.02 X10*3/uL (0.00-0.03); Imm Gran Pct Auto 0.3 % (0.0-0.4); Lymphocytes Absolute Auto 1.9 X10*3/uL (1.2-4.9); Lymphocytes Percent Auto 25.7 % (20-40); Mean Corpuscular HGB Conc 33.3 g/dl (31.0-35.0); Mean Corpuscular Hemoglobin 28.5 pg (27.0-33.0); Mean Corpuscular Volume 85.5 fL (80.0-98.0); Mean Platelet Volume 9.8 fL (9.4-12.3); Monocytes Absolute Auto 0.3 X10*3/uL (0.1-1.2); Monocytes Percent Auto 4.4 % (2-11); Neutrophils Absolute Auto 4.9 x10*3/uL (2.0-8.3); Neutrophils Percent Auto 68.1 % (45-73); Platelet Count 342 X10*3/uL (160-400); Red Blood Count 4.91 X10*6/uL (4.20-5.50); Red Cell Distribution Width 12.2 % (11.0-16.0); White Blood Count 7.2 X10*3/uL (4.8-10.8)
[2023-10-20 11:41] LABS: Alanine Aminotransferase 34 U/L (0-31); Albumin Level 4.5 g/dL (3.5-5.0); Alkaline Phosphatase 82 U/L (39-117); Anion Gap 10 (12-20); Aspartate Amino Transferase 21 U/L (5-31); Bilirubin Total 0.5 mg/dL (0.0-1.0); Blood Urea Nitrogen 16 mg/dL (9-16); Carbon Dioxide 26 mmol/L (22-29); Chloride 108 mmol/L (96-108); Creatinine Clr Calc Pharmacy 110.3; Estimated Glomerular Filt Rate > 60; Glucose Random 96 mg/dL (60-115); Potassium 3.7 mmol/L (3.3-5.1); Sodium 140 mmol/L (135-145); Total Protein 7.9 g/dL (6.5-8.0)
[2023-10-20 11:47] LABS: IDNOW Serial# 08D9AD1C; Strep A Nucleic Acid Negative (Negative)
[2023-10-20 11:48] LABS: Troponin-I High Sensitivity < 2.7 ng/L (<3.5-17.0)
[2023-10-20 12:06] LABS: Influenza A PCR NEGATIVE (Negative); Influenza B PCR NEGATIVE (Negative); Resp Syncy Virus RNA Qual PCR NEGATIVE (Negative); SARS COV2 PCR INHOUSE NEGATIVE (Negative)
[2023-10-20 14:17] VITALS: BP 110/75; PULSE 80; RESP 18; TEMP 36; O2SAT 97
--- NOTE | 2023-10-20 14:17 | ED_ITS ---
HPI - Chest Pain General Chief Complaint: Chest Pain Stated Complaint: ANXIETY W/CP AND L ARM PAIN PER EMS Time Seen by Provider: 10/20/23 16:07 Source: patient Mode of arrival: ambulatory Limitations: no limitations History of Present Illness HPI narrative: Patient comes to the emergency room complaining of anxiety. Patient has multiple complaints on top of anxiety, including left arm pain. Patient states that she has been evaluated multiple times for similar symptoms. Of note, patient is 3 months , denies SI or HI. Related Data Previous Rx's ?Medication ?Instructions ?Recorded lorazepam 0.5 mg tablet 0.5 mg PO DAILY anxiety 3 days #3 09/18/23 tabs levothyroxine 25 mcg capsule 25 mcg PO DAILY #30 caps 10/17/23 Allergies Allergy/AdvReac Type Severity Reaction Status Date / Time labetalol Allergy Swelling Verified 10/20/23 10:28 Seasonal Allergies Allergy Headache Verified 10/20/23 10:28 Review of Systems 2 Review of Systems: Constitutional : No Weight loss, No Fever, No Chills, No Night Sweats, No Fatigue, No Malaise ENT/Mouth : No Hearing loss, No Ear Pain, No Nasal Congestion, No Sinus Pain, No Hoarseness, No sore throat, No Rhinorrhea, No Swallowing Difficulty Eyes: No Eye Pain, No Swelling, No Redness, No Foreign Body, No Discharge, No Vision Changes Cardiovascular : No Chest Pain, No SOB, No Dyspnea on Exertion, No Orthopnea, No Edema, No Palpitations Respiratory : No Cough, No Sputum, No Wheezing, No Smoke Exposure, No Dyspnea Gastrointestinal : No Nausea, No Vomiting, No Diarrhea, No Constipation, No abdominal Pain, No Hematochezia, No Melena Genitourinary : no irregular bleeding, No Dysuria, No Urinary Frequency, No Hematuria, No Urinary Incontinence, No Urgency, No Flank Pain, No Urinary Flow Changes, No Hesitancy Musculoskeletal : Complaining of left hand pain, No joint pain, No Myalgias, No Joint Swelling Skin : No Skin Lesions, No rash Neuro : No Weakness, No Numbness, No Paresthesias, No Loss of Consciousness, No Dizziness, No Headache Psych : Complaining of anxiety, panic attacks, No Depression, No SI/HI/AH/VH, No Social Issues, Heme/Lymph: No Bruising, No Bleeding,No Lymphadenopathy Endocrine : No Polyuria, No Polydipsia, No Temperature Intolerance [facility] Past Medical History Medical History care in first trimester Spontaneous Healthy adult Surgical History No pertinent past surgical history Family History Family History Mother No known health problems Father No known health problems Sister Type II diabetes mellitus Social History Social History Housing: Apartment Alcohol intake: never Patient Tobacco Use Status: Never used Tobacco e-Cigarette/Vaping Use: Never Used Substance Use Type: Marijuana service: No Current occupational status: unemployed Cognitive needs: No Hearing needs: No Vision needs: Yes Physical Exam 2 Vital Signs: Vital Signs: Last Vital Signs Temp 98.2 F 10/20/23 19:23 Pulse 96 10/20/23 19:23 Resp 16 10/20/23 19:23 BP 118/73 10/20/23 19:23 Pulse Ox 99 10/20/23 19:23 O2 Del Method Room Air 10/20/23 19:23 BMI result Body Mass Index 32.3 Const: Other: Appearance: Alert. Oriented X3. No acute distress. Eyes: Pupils equal, round and reactive to light. ENT: Pharynx normal. Neck: Normal inspection. Neck supple. No lymph nodes noted. No crepitus CVS: Normal heart rate and rhythm. Pulses normal. Normal S1 and S2 Respiratory: No respiratory distress. Breath sounds normal. No Wheezing. No rales Abdomen: Soft and nontender. No rigidity. No distention. Skin: Skin warm and dry. Normal skin color. Normal skin turgor. Extremities: No lower extremity edema. No Lacerations. No Rash Neuro: Oriented X 3. No motor deficit. No sensory deficit. Moving all extremities. No slurred speech. CN 2 through 12 grossly intact Psych: Very anxious, crying, yelling Course Course Course Narrative: This is an RME: Additional HPI, ROS, PE not included below will be deferred to primary provider. 22 yo f presents w/ anxietym, depression, chest discomfort X few days. Chest discomfort is almost gone. Has a good support system. Feels anxious has been seen here before for the same thing Now reporting diffuse headache. Medications Administered Discontinued Medications Generic Name Dose Route Start Last Admin Trade Name Ayesha PRN Reason Stop Dose Admin Lorazepam 2 mg 10/20/23 17:05 10/20/23 17:22 Lorazepam 1 Mg Tablet PO 10/20/23 17:06 2 mg ONCE ONE Administration Medical Decision Making Medical Decision Making [facility] Narrative: -my interpretation of labs, normal hematology, chemistry, negative D-dimer, negative troponin, negative test, negative serology -patient denies SI or HI, section 12 is not indicated at this time. -my interpretation of EKG: Normal sinus rhythm, heart rate 69, no ST segment depression or elevation, nonspecific T-wave inversions in V1 through V3 and lead 3, QTC 439 -patient had troponins x2 negative, negative D-dimer, I spoke with Dr. Hancock about the patient's EKG T-wave inversions, nothing specific, patient asymptomatic. No further workup indicated -patient waiting to be seen by the care team for anxiety. -patient was evaluated by the care team: Patient not suicidal or homicidal, patient has already been seen at [facility] as well, patient has already resources, therapy and group treatments -patient and the care team feel comfortable discharging the patient home Differential Diagnosis Differential Diagnoses: The differential diagnosis associated with the presentation includes (Anxiety, depression, polysubstance abuse) Admission/Observation Consideration of admission/observation: Escalation of care including admission/observation considered (Patient under physician observation waiting to be seen by the care team to determine disposition) Lab Data [facility] Lab Attestation statement: I reviewed the patient's lab results. 10/20/23 11:18 10/20/23 11:18 Labs: Lab Results 10/20/23 10/20/23 10/20/23 Range/Units 11:18 17:42 19:41 WBC 7.2 (4.8-10.8) X10*3/uL RBC 4.91 (4.20-5.50) X10*6/uL Hgb 14.0 (12.0-16.0) g/dl Hct 42.0 (37.0-47.0) % MCV 85.5 (80.0-98.0) fL MCH 28.5 (27.0-33.0) pg MCHC 33.3 (31.0-35.0) g/dl RDW 12.2 (11.0-16.0) % Plt Count 342 (160-400) X10*3/uL MPV 9.8 (9.4-12.3) fL Immature Gran % (Auto) 0.3 (0.0-0.4) % Neut % (Auto) 68.1 (45-73) % Lymph % (Auto) 25.7 (20-40) % [place] % (Auto) 4.4 (2-11) % Eos % (Auto) 1.1 (0-4) % Baso % (Auto) 0.4 (0-2) % Lymph # (Auto) 1.9 (1.2-4.9) X10*3/uL [place] # (Auto) 0.3 (0.1-1.2) X10*3/uL Eos # (Auto) 0.1 (0.0-0.4) X10*3/uL Baso # (Auto) 0.0 (0.0-0.2) X10*3/uL Abs Immat Gran (auto) 0.02 (0.00-0.03) X10*3/uL Absolute Neuts (auto) 4.9 (2.0-8.3) x10*3/uL Absolute Nucleated RBC 0.000 (0.0-0.012) X10*3/uL Nucleated RBC % (auto) 0.0 (0.0-0.2) /100WBC PT 12.2 (11.1-13.3) SEC INR 1.0 (0.9-1.1) D-Dimer High Sensitivty < 150 NG/ML Sodium 140 (135-145) mmol/L Potassium 3.7 (3.3-5.1) mmol/L Chloride 108 (96-108) mmol/L Carbon Dioxide 26 (22-29) mmol/L Anion Gap 10 L (12-20) BUN 16 (9-16) mg/dL Creatinine 0.76 (0.5-1.4) mg/dL Estim Creat Clear Calc 110.3 Estimated GFR > 60 Random Glucose 96 (60-115) mg/dL Calcium 10.0 (8.4-10.2) mg/dL Total Bilirubin 0.5 (0.0-1.0) mg/dL AST 21 (5-31) U/L ALT 34 H (0-31) U/L Alkaline Phosphatase 82 (39-117) U/L Troponin I High Sens < 2.7 < 2.7 (<3.5-17.0) ng/L Total Protein 7.9 (6.5-8.0) g/dL Albumin 4.5 (3.5-5.0) g/dL TSH 14.29 H (0.32-4.0) uIU/mL Free T4 0.91 (0.71-1.85) ng/dL Beta HCG, Quant < 2 mIU/mL Urine Test NEGATIVE (NEGATIVE) Urine Opiates Screen Not Detected (Not Detect) Ur Buprenorphine Scrn Not Detected (Not Detect) ng/mL Ur Oxycodone Screen Not Detected (Not Detect) ng/mL Urine Methadone Screen Not Detected (Not Detect) ng/mL Urine Fentanyl Screen Not Detected (Not Detect) Ur Barbiturates Screen Not Detected (Not Detect) Ur Phencyclidine Scrn Not Detected (Not Detect) Ur Amphetamines Screen Not Detected (Not Detect) U Benzodiazepines Scrn Not Detected (Not Detect) Urine Cocaine Screen Not Detected (Not Detect) U Marijuana (THC) Screen Not Detected (Not Detect) Influenza Type A (PCR) NEGATIVE (Negative) Influenza Type B (PCR) NEGATIVE (Negative) RSV RNA Qual (PCR) NEGATIVE (Negative) SARS-CoV-2 RNA (RT-PCR) NEGATIVE (Negative) S. pyogenes GrpA SERENE Negative (Negative) Critical Care Time Critical Care Time Critical Care Time: Yes Total Critical Care Time: 40 Attestation: I have personally provided critical care time. Time includes review of lab data, radiology results, discussion with consultants, and monitoring for potential decompensation. Intervention performed as documented. Discharge Plan Discharge Clinical Impression: Atypical chest pain, Panic attack, Depression, Patient Disposition: Home, Self-Care Instructions: Depression (DC), Panic Disorder (ED) Prescriptions: No Action levothyroxine 25 mcg capsule 25 mcg PO DAILY Qty: 30 0RF lorazepam 0.5 mg tablet 0.5 mg PO DAILY 3 Days Qty: 3 0RF Print Language: [place]
[2023-10-20 16:06] VITALS: BP 134/82; PULSE 92; RESP 18; TEMP 36.8; O2SAT 100
[2023-10-20] MEDS: LORazepam 1 MG TABLET 2 MG PO (17:22)
[2023-10-20 18:01] LABS: Prothrombin Time 12.2 SEC (11.1-13.3)
[2023-10-20 18:09] LABS: Troponin-I High Sensitivity < 2.7 ng/L (<3.5-17.0)
[2023-10-20 18:22] LABS: D Dimer High Sensitivity < 150 NG/ML
[2023-10-20 18:24] LABS: HCG Quantitative < 2 mIU/mL; TSH reflex Free T4 14.29 uIU/mL (0.32-4.0)
[2023-10-20 19:03] LABS: Free T4 (Free Thyroxine) 0.91 ng/dL (0.71-1.85)
[2023-10-20 19:23] VITALS: BP 118/73; PULSE 96; RESP 16; TEMP 36.8; O2SAT 99
[2023-10-20 19:52] LABS: UPreg QC Valid YES; Urine Pregnancy NEGATIVE (NEGATIVE)
[2023-10-20 20:00] LABS: Amphetamine Screen Urine Not Detected (Not Detect); Barbiturates, Urine Not Detected (Not Detect); Benzodiazepines Screen Urine Not Detected (Not Detect); Buprenorphine Scr Not Detected (Not Detect); Cannabinoid Screen Urine Not Detected (Not Detect); Cocaine Screen Urine Not Detected (Not Detect); Fentanyl, urine Not Detected (Not Detect); Methadone Screen, Urine Not Detected (Not Detect); Opiate Screen Urine Not Detected (Not Detect); Oxycodone Screen Urine Not Detected (Not Detect); Phencyclidine Screen Urine Not Detected (Not Detect)
[2023-10-20 22:03] VITALS: BP 131/82; PULSE 99; RESP 16; TEMP 36.9; O2SAT 100
== END 2023-10-20 22:10 | disposition home or self-care (01) ==
PROVIDERS: Emergency Provider Emergency Medicine; PCP Physician Assistant
DX: R07.89 Other chest pain (principal); M79.602 Pain in left arm; F41.1 Generalized anxiety disorder; F43.0 Acute stress reaction; F33.1 Major depressive disorder, recurrent, moderate; F41.0 Panic disorder [episodic paroxysmal anxiety]; Z11.52 Encounter for screening for COVID-19; Z20.822 Contact with and (suspected) exposure to COVID-19; Z79.899 Other long term (current) drug therapy
CPT/HCPCS: 0241U; 36415; 80053; 80307; 81025; 84439; 84443; 84484; 84702; 85025; 85379; 85610; 87651; 93005; 99285; S9485

== ENCOUNTER → 2023-10-20 10:06 | Outpatient (BNV) | payer OTHER, SELFPAY | PROVIDERS: Emergency Provider Emergency Medicine; PCP Physician Assistant; Visit Provider Internal Medicine | DX: R07.9 Chest pain, unspecified (principal) | CPT/HCPCS: 93010 ==

== ENCOUNTER 2023-10-22 15:59 | Outpatient (AMB) | payer OTHER, SELFPAY ==
--- NOTE | 2023-10-22 16:24 | A.OFFPC_ITS ---
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 Patient is 3 months at this time.. She was seen at the ER for another acute passing out episode that comes on with panic type symptoms.. She has been seen at local ER multiple times over the last month with similar symptoms of syncopal episodes and panic feeling. Workup has been negative with the exception of elevated TSH. Most recent TSH at September 2023 TSH was 6 though was still having similar symptoms of panic feeling in syncopal episodes. She presents today with her mother whom is concerned about patient's symptoms as well. They are looking for additional workup. [facility] Medical History care in first trimester Spontaneous Healthy adult Surgical History No pertinent past surgical history Family History Mother No known health problems Father No known health problems Sister Type II diabetes mellitus Social History Housing: Apartment Alcohol intake: never Patient Tobacco Use Status: Never used Tobacco e-Cigarette/Vaping Use: Never Used Substance Use Type: Marijuana service: No Current occupational status: unemployed Cognitive needs: No Hearing needs: No Vision needs: Yes Questionnaire Thrive Questionnaire Date Thrive assessed: 08/07/23 RENETTA-7 AMB Questionnaire RENETTA-7 Date RENETTA - 7 assessed: 08/07/23 Source: Developed by Drs. Raymond Nails, Josy Victor, David Starkey and colleagues, with an educational valeri from [employer]. Review of Systems Const Reports headache(s) Eyes Denies loss of vision ENT Denies vertigo, Reports dizziness, Reports headache(s) and Denies sore throat Card Denies chest pain, Denies leg edema and Denies lightheadedness Resp Denies cough, Denies hemoptysis and Denies wheezing GI Denies abdominal pain, Denies melena, Denies constipation, Denies diarrhea and Denies vomiting Denies urinary frequency, Denies dysuria and Denies urinary urgency Musc Denies arthralgias, Denies joint swelling, Denies numbness and Denies tingling Neuro Denies Abnormal speech present, Denies behavioral changes, Denies vertigo, Reports dizziness, Reports headache(s), Denies loss of vision, Denies memory loss, Denies numbness and Denies tingling Psych Denies anxiety, Denies behavioral changes, Denies depression, Denies memory loss and Denies panic attacks Skyler/Lymph Denies easy bleeding and Denies easy bruising Aller/Immun Denies wheezing Physical exam (Primary Care) Vital Signs: Last Vital Signs Pulse 88 10/22/23 16:29 BP 102/62 10/22/23 16:29 Pulse Ox 99 10/22/23 16:29 Oxygen Delivery Method Room Air 10/22/23 16:29 BMI result Body Mass Index 32.3 BMI Assessment/Plan discussion: High BMI High, discussed plan: lifestyle, weight reduction, dietary and physical activity Tobacco/Smoking Status: Tobacco use Status Tobacco use date assessed 08/07/23 10/22/23 16:25 Patient Tobacco Use Status Never used Tobacco 10/22/23 16:25 e-Cigarette/Vaping Use Never Used 10/22/23 16:25 Thrive Assessment: Date of Thrive Assessment Date Thrive assessed 08/07/23 10/22/23 16:25 Const General: healthy appearing, no acute distress, alert and awake Nutritional Appearance: well nourished Orientation/consciousness: oriented to person, oriented to place and oriented to time HENMT Ears: TM's normal bilaterally General nose exam: Normal nasal mucous membranes and turbinates present Eyes Conjunctivae: conjunctivae normal Sclerae: sclerae normal Pupils: Equal, round and reactive pupils present Neck Neck: Yes no lymphadenopathy and Yes no JVD Thyroid: Thyroid normal Carotids: no bruits Resp Effort & Inspection: normal respiratory effort and not tachypneic Auscultation: no crackles, no rales, no rhonchi and no wheezes Cardio Rate: regular rate Rhythm: regular rhythm Heart sounds: no murmurs and normal S1 and S2 GI Palpation (GI): Soft to palpation, nontender, no hepatomegaly and no splenomegaly Auscultation: normal bowel sounds Skin General skin exam: no rashes or lesions noted and dry skin Neuro General: oriented to person, oriented to place and oriented to time Cranial nerves: Yes Equal, round and reactive pupils present Speech: No Abnormal speech present Gait exam (Neuro): Normal gait present Motor exam (neuro): no tremor noted Extrem Right upper extremity: full ROM Left upper extremity: full ROM Right lower extremity: full ROM; no edema Left lower extremity: full ROM; no edema Psych Mental Status: mental status grossly normal Speech and movement: Normal speech and movement present Affect: normal affect Attitude: cooperative Thought process: Normal thought process present Assessment and Plan Assessment & Plan (1) Panic attack: Code(s): F41.0 - Panic disorder [episodic paroxysmal anxiety] Plan: Patient's symptoms as per HPI are unclear though can be noted to be consistent with panic attacks. Will supply patient with SSRI therapy to start on to try to regulate out symptoms. She is speaking with a mental therapist this time. (2) Episode of syncope: Code(s): R55 - Syncope and collapse Qualifiers: Syncope type: vasovagal syncope Qualified Code(s): R55 - Syncope and collapse Plan: Unclear etiology at this point 2 patient's episodes of syncope. There is no reports of convulsions, urinary incontinence or biting her tongue. She reports feeling very anxious and panicky about her symptoms. She is concerned about taking care of her 3 month and having these passing out episodes. Will send for EEG and CT of brain to evaluate for any epileptic activity or brain lesion. (3) Hypothyroid: Code(s): E03.9 - Hypothyroidism, unspecified Qualifiers: Hypothyroidism type: unspecified Qualified Code(s): E03.9 - Hypothyroidism, unspecified Plan: Still noted elevations in her TSH. Originally elevated TSH with stat to be due to and hormone shifts though now 3 months and TSH still elevated Will recheck TSH in 2 weeks and if still elevated will restart levothyroxine. (4) Neck fullness: Code(s): R22.1 - Localized swelling, mass and lump, neck Plan: Patient does admit to some anterior neck pain and headache. Will send for ultrasound of the thyroid to evaluate for thyroiditis or thyroid nodules in the setting elevated TSH, though T4 normal . (5) Paresthesia of left arm: Code(s): R20.2 - Paresthesia of skin Plan: Having paresthesias in the left arm set come along with her anxious symptoms and episodes of syncope. Will send for EMG testing to evaluate for an entrapped nerve in her upper arm. Orders: Orders US thyroid 10/22/23 R22.1 - Localized swelling, mass and lump, neck, R55 - Syncope and collapse TSH reflex Free T4 10/22/23 E03.9 - Hypothyroidism, unspecified NE electromyogram (EMG) 10/22/23 R20.2 - Paresthesia of skin CT head/brain w IV con Today R55 - Syncope and collapse Basic Metabolic Panel Today R55 - Syncope and collapse EEG electroencephalogram 10/22/23 R55 - Syncope and collapse Medications: New sertraline 50 mg PO DAILY 30 days 30 tabs 0RF F41.1 - Generalized anxiety disorder Coding Level of Care Code Est Pt Level 4 (90879) Diagnoses Panic attack F41.0 Vasovagal syncope R55 Syncope type: vasovagal syncope Hypothyroidism, unspecified type E03.9 Hypothyroidism type: unspecified Neck fullness R22.1 Paresthesia of left arm R20.2
[2023-10-22 16:29] VITALS: BP 102/62; PULSE 88; O2SAT 99; BMI 32.3
== END 2023-10-22 17:12 | disposition home or self-care (01) ==
PROVIDERS: PCP Physician Assistant; Visit Provider Physician Assistant
DX: F41.0 Panic disorder [episodic paroxysmal anxiety] (principal); R55 Syncope and collapse; E03.9 Hypothyroidism, unspecified; R22.1 Localized swelling, mass and lump, neck; R20.2 Paresthesia of skin
CPT/HCPCS: 99214

== ENCOUNTER 2023-10-27 15:01 | Outpatient (AMB) | payer OTHER, SELFPAY ==
[2023-10-27 15:04] VITALS: BP 100/62; PULSE 75; O2SAT 99; BMI 31.7
--- NOTE | 2023-10-27 15:04 | A.OFFPC_ITS ---
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 Patient has a past medical history significant for hypothyroidism, anxiety, anemia. Concern--> has recently been suffering with passing out episodes and has been evaluated at local ERs multiple times. All workups thus far has been negative with the exception of elevated TSH. Has restarted levothyroxine .. Hypothyroidism: Most recent TSH was 18 recent ER visit. 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 [facility] Medical History care in first trimester Spontaneous Healthy adult Surgical History No pertinent past surgical history Family History Mother No known health problems Father No known health problems Sister Type II diabetes mellitus Social History (Updated 10/27/23 @ 15:20 by Orlando Lucio PA-C) Housing: Apartment Alcohol intake: never Patient Tobacco Use Status: Never used Tobacco e-Cigarette/Vaping Use: Never Used Substance Use Type: Marijuana service: No Current occupational status: employed Current occupation: Works at [employer] Cognitive needs: No Hearing needs: No Vision needs: Yes Questionnaire Thrive Questionnaire Date Thrive assessed: 08/07/23 RENETTA-7 AMB Questionnaire RENETTA-7 Date RENETTA - 7 assessed: 08/07/23 Source: Developed by Drs. Raymond Nails, Josy Victor, David Starkey and colleagues, with an educational valeri from [employer]. Review of Systems Const Denies excessive sweating, Denies fatigue and Denies headache(s) Eyes Denies loss of vision ENT Denies vertigo, Denies dizziness, Denies headache(s) and Denies sore throat Card Denies chest pain, Denies leg edema and Denies lightheadedness Resp Denies cough, Denies hemoptysis and Denies wheezing GI Denies abdominal pain, Denies melena, Denies constipation, Denies diarrhea and Denies vomiting Denies urinary frequency, Denies dysuria and Denies urinary urgency Musc Denies arthralgias, Denies joint swelling, Denies numbness and Denies tingling Skin/Breast Denies rash and Denies skin ulcer Neuro Denies Abnormal speech present, Denies behavioral changes, Denies vertigo, Denies dizziness, Denies headache(s), Denies loss of vision, Denies memory loss, Denies numbness and Denies tingling Psych Denies anxiety, Denies behavioral changes, Denies depression, Denies memory loss and Denies panic attacks Endo Denies excessive sweating, Denies fatigue, Denies flushing, Denies polydipsia and Denies polyuria Skyler/Lymph Denies easy bleeding and Denies easy bruising Aller/Immun Denies wheezing Physical exam (Primary Care) Vital Signs: Last Vital Signs Pulse 75 10/27/23 15:04 BP 100/62 10/27/23 15:04 Pulse Ox 99 10/27/23 15:04 Oxygen Delivery Method Room Air 10/27/23 15:04 BMI result Body Mass Index 31.7 Tobacco/Smoking Status: Tobacco use Status Tobacco use date assessed 08/07/23 10/27/23 15:05 Patient Tobacco Use Status Never used Tobacco 10/27/23 15:20 e-Cigarette/Vaping Use Never Used 10/27/23 15:20 Thrive Assessment: Date of Thrive Assessment Date Thrive assessed 08/07/23 10/27/23 15:05 Const General: healthy appearing, no acute distress, alert and awake Nutritional Appearance: well nourished Orientation/consciousness: oriented to person, oriented to place and oriented to time HENMT Head: Yes normocephalic Ears: TM's normal bilaterally General nose exam: Normal nasal mucous membranes and turbinates present Face and sinus: No sinus tenderness Mouth: Normal oral and palatal mucosa present and tongue normal Teeth and gingiva: dentition normal and gingiva normal Throat: Yes posterior oropharynx normal, Yes tonsils normal and Yes uvula midline Eyes Conjunctivae: conjunctivae normal Sclerae: sclerae normal Pupils: Equal, round and reactive pupils present EOM: EOMs intact bilaterally Direct Ophthalmoscopy: No no photophobia Neck Neck: Yes no lymphadenopathy and Yes no JVD Thyroid: Thyroid normal Carotids: no bruits Chest Chest palpation & inspection: no tenderness Resp Effort & Inspection: normal respiratory effort and not tachypneic Auscultation: no crackles, no rales, no rhonchi and no wheezes Cardio Jugular venous distension: no JVD Rate: regular rate Rhythm: regular rhythm Heart sounds: no murmurs and normal S1 and S2 Bruits: no carotid bruits Peripheral pulses: Peripheral pulses 2+ throughout GI Inspection: Yes normal to inspection, No abdominal wall ecchymosis and No visible herniation Palpation (GI): Soft to palpation, nontender, no hepatomegaly and no splenomegaly Auscultation: normal bowel sounds General: Yes no CVA tenderness Back/Spine/Pelvis Back: no CVA tenderness and No back tenderness Cervical Spine: cervical ROM normal Thoracic/Lumbar Spine: thoracic and lumbar spine normal to inspection, straight leg raise negative bilaterally, No thoraco-lumbar ROM limited and No lumbar spinal tenderness Skin General skin exam: no rashes or lesions noted and dry skin Lesions: no lesions Rashes: no rashes Wounds: no wounds Neuro General: oriented to person, oriented to place and oriented to time Cranial nerves: Yes Equal, round and reactive pupils present Cognition (Neuro): normal cognition Speech: No Abnormal speech present Gait exam (Neuro): Normal gait present Motor exam (neuro): no tremor noted Extrem Right upper extremity: full ROM Left upper extremity: full ROM Right lower extremity: full ROM; no edema Left lower extremity: full ROM; no edema Psych Appearance: grossly normal Mental Status: mental status grossly normal Speech and movement: Normal speech and movement present Affect: normal affect Attitude: cooperative Thought process: Normal thought process present Assessment and Plan Assessment & Plan (1) Annual physical exam: Code(s): Z00.00 - Encounter for general adult medical examination without abnormal findings (2) RENETTA (generalized anxiety disorder): Code(s): F41.1 - Generalized anxiety disorder Plan: Patient does seem to be suffering with anxiety though his apprehensive on starting medication. Does have Zoloft available to her if she decides she would like to start medication therapy He is speaking with a mental health therapist (3) Hypothyroid: Code(s): E03.9 - Hypothyroidism, unspecified Qualifiers: Hypothyroidism type: unspecified Qualified Code(s): E03.9 - Hypothyroidism, unspecified Plan: Patient's TSH remains elevated. Will restart levothyroxine 25 mcg. Will recheck TSH in 4 weeks. (4) Astigmatism: Code(s): H52.209 - Unspecified astigmatism, unspecified eye Qualifiers: Astigmatism type: regular Laterality: bilateral Qualified Code(s): H52.223 - Regular astigmatism, bilateral Plan: Patient reports having some vision issues over last several months. She does report her eyeglasses have broken. She would like to see a new eye doctor. Orders: Orders TSH reflex Free T4 3 Weeks E03.9 - Hypothyroidism, unspecified Referrals Ophthalmology Referral H52.209 - Unspecified astigmatism, unspecified eye Medications: Changed From levothyroxine 25 mcg PO DAILY 30 caps 0RF E03.9 - Hypothyroidism, unspecified To levothyroxine 25 mcg PO DAILY 30 days 30 caps 1RF E03.9 - Hypothyroidism, unspecified Coding Level of Care Code Est Pt Prev Care 18-39y(96918) Diagnoses Annual physical exam Z00.00 RENETTA (generalized anxiety disorder) F41.1 Hypothyroidism, unspecified type E03.9 Hypothyroidism type: unspecified Regular astigmatism of both eyes H52.223 Astigmatism type: regular Laterality: bilateral
== END 2023-10-27 15:37 | disposition home or self-care (01) ==
PROVIDERS: PCP Physician Assistant; Visit Provider Physician Assistant
DX: Z00.00 Encounter for general adult medical examination without abnormal findings (principal); F41.1 Generalized anxiety disorder; E03.9 Hypothyroidism, unspecified; H52.223 Regular astigmatism, bilateral
CPT/HCPCS: 99395

== ENCOUNTER 2023-10-30 10:30 | Outpatient (REF) | payer OTHER, SELFPAY ==
--- NOTE | ~2023-10-30 | US_ITS ---
EXAMINATION: US THYROID CLINICAL INFORMATION: Fullness of neck, swelling, lump, hypothyroidism. COMPARISON: None available. TECHNIQUE: Linear transducer garland-scale and color Doppler examination with attention to the region of the thyroid. FINDINGS: SIZE: Measurements of the thyroid lobes and nodules are given in sagittal, anteroposterior and transverse dimensions respectively. Right Thyroid Lobe: 4.9 x 1.3 x 1.7 cm, volume 5.7 mL. Parenchyma: The gland echotexture is heterogeneous. Thyroid vascularity is increased. Left Thyroid Lobe: 5.9 x 1.5 x 2.0 cm, volume 9.3 mL. Parenchyma: The gland echotexture is heterogeneous. Thyroid vascularity is increased. Isthmus: 0.6 cm in maximum AP dimension. No focal thyroid nodule is seen. NODES: No lymphadenopathy is seen in the tissue surrounding the thyroid gland. US/US thyroid IMPRESSION: Enlarged markedly heterogeneous thyroid gland without a focal nodule. No further follow-up is recommended. ACR TI-RADS RECOMMENDATION REFERENCE: Ultrasound-guided fine-needle aspiration, followup ultrasound, no further follow up. * TR1 (0 point) and TR2 (2 points): No FNA or follow up. * TR3 (3 points): FNA if more than or equal to 2.5 cm in maximum dimension, followup ultrasound in 1, 3 and 5 years if 1.5 to 2.4 cm in maximum dimension. * TR4 (4-6 points): FNA if more than or equal to 1.5 cm in maximum dimension, followup ultrasound in 1, 2, 3 and 5 years if 1 to 1.4 cm in maximum dimension. * TR5 (more than or equal to 7 points): FNA if more than or equal to 1 cm in maximum dimension, followup ultrasound every year for 5 years if 0.5 to 0.9 cm in maximum dimension. * TR3, TR4 or TR5 nodules that are below the size threshold for followup receive no follow up.
== END 2023-10-30 10:31 | disposition home or self-care (01) ==
LOC: HO.US 10:30
PROVIDERS: PCP Physician Assistant; Visit Provider Physician Assistant
DX: R22.1 Localized swelling, mass and lump, neck (principal); R55 Syncope and collapse
CPT/HCPCS: 76536

== ENCOUNTER 2023-11-05 02:45 | Emergency (ER) | payer OTHER, SELFPAY ==
--- NOTE | 2023-11-05 | ECG_ITS ---
Test Reason : CP Blood Pressure : / mmHG Vent. Rate : 083 BPM Atrial Rate : 083 BPM P-R Int : 174 ms QRS Dur : 088 ms QT Int : 336 ms P-R-T Axes : 027 035 -26 degrees QTc Int : 394 ms Normal sinus rhythm Nonspecific T wave abnormality Abnormal ECG When compared with ECG of 20-OCT-2023 16:52, No significant change was found Referred By: Generic ED Physician Electronically Signed By:GIOVANY ZHANG MD
[2023-11-05 02:50] VITALS: BP 136/80; PULSE 115; O2SAT 98
[2023-11-05 02:52] VITALS: BP 126/80; PULSE 87; RESP 18; TEMP 36.8; O2SAT 97; BMI 31.9
--- NOTE | 2023-11-05 03:02 | MHC.EDTECH ---
Patient brought into triage area,EKG taken per order and signed by provider,labs drawn and sent to lab.
[2023-11-05 03:04] LABS: MANUAL DIFF FLAG NO
[2023-11-05 03:05] LABS: Basophils Percent Auto 0.4 % (0-2); Eosinophils Absolute Auto 0.1 X10*3/uL (0.0-0.4); Eosinophils Percent Auto 1.5 % (0-4); Hematocrit 38.6 % (37.0-47.0); Hemoglobin 13.3 g/dl (12.0-16.0); Imm Gran Abs Auto 0.01 X10*3/uL (0.00-0.03); Imm Gran Pct Auto 0.1 % (0.0-0.4); Lymphocytes Absolute Auto 3.3 X10*3/uL (1.2-4.9); Lymphocytes Percent Auto 38.7 % (20-40); Mean Corpuscular HGB Conc 34.5 g/dl (31.0-35.0); Mean Corpuscular Hemoglobin 29.2 pg (27.0-33.0); Mean Corpuscular Volume 84.6 fL (80.0-98.0); Monocytes Absolute Auto 0.4 X10*3/uL (0.1-1.2); Neutrophils Absolute Auto 4.6 x10*3/uL (2.0-8.3); Neutrophils Percent Auto 54.3 % (45-73); Platelet Count 311 X10*3/uL (160-400); Red Blood Count 4.56 X10*6/uL (4.20-5.50); Red Cell Distribution Width 12.5 % (11.0-16.0); White Blood Count 8.6 X10*3/uL (4.8-10.8)
[2023-11-05 03:10] LABS: Prothrombin Time 12.1 SEC (11.1-13.3)
[2023-11-05 03:18] LABS: Alanine Aminotransferase 33 U/L (0-31); Albumin Level 4.3 g/dL (3.5-5.0); Alkaline Phosphatase 81 U/L (39-117); Anion Gap 14 (12-20); Aspartate Amino Transferase 22 U/L (5-31); Bilirubin Total 0.3 mg/dL (0.0-1.0); Blood Urea Nitrogen 16 mg/dL (9-16); Calcium 9.8 mg/dL (8.4-10.2); Carbon Dioxide 19 mmol/L (22-29); Chloride 112 mmol/L (96-108); Creatinine Clr Calc Pharmacy 105.5; Estimated Glomerular Filt Rate > 60; Glucose Random 97 mg/dL (60-115); Potassium 3.6 mmol/L (3.3-5.1); Sodium 141 mmol/L (135-145); Total Protein 7.6 g/dL (6.5-8.0)
[2023-11-05 03:25] LABS: Troponin-I High Sensitivity < 2.7 ng/L (<3.5-17.0)
== END 2023-11-05 06:09 | disposition left against medical advice (07) ==
PROVIDERS: Emergency Provider Emergency Medicine
DX: R07.9 Chest pain, unspecified (principal)
CPT/HCPCS: 36415; 80053; 84484; 85025; 85610; 93005; 99283

== ENCOUNTER → 2023-11-05 02:53 | Outpatient (BNV) | payer OTHER, SELFPAY | PROVIDERS: Emergency Provider Emergency Medicine; Visit Provider Internal Medicine Cardiovascular Disease | DX: R94.31 Abnormal electrocardiogram [ECG] [EKG] (principal) | CPT/HCPCS: 93010 ==

== ENCOUNTER 2023-11-06 12:51 | Outpatient (REF) | payer OTHER, SELFPAY ==
--- NOTE | 2023-11-06 12:54 | EEG_ITS ---
This is a 16-channel EEG with an EKG lead. The patient is reported alert and awake during the tracing. Background EEG rhythm is about 10 hertz 5 to 20 microvolt posteriorly, lower amplitude fast anteriorly. Photic stimulation does not produce any significant abnormality. Hyperventilation is not performed. Cardiac lead does not reveal any significant abnormality. The patient was in and out of drowsiness. No sharp wave spikes or paroxysmal tendency noted. IMPRESSION: Unremarkable EEG. MD VARSHA Wagner/SANDEE / [id number]
== END 2023-11-06 12:52 | disposition home or self-care (01) ==
LOC: HO.NEURO 12:51
PROVIDERS: Visit Provider Physician Assistant
DX: R55 Syncope and collapse (principal)
CPT/HCPCS: 95816

== ENCOUNTER 2023-11-07 08:55 | Outpatient (REF) | payer OTHER, SELFPAY ==
--- NOTE | 2023-11-07 09:13 | EMG_ITS ---
Chief complaint: Left hand tingling Reason for referral: Evaluate for Carpal Tunnel Syndrome Referred by: Orlando DIXON Procedure done: Left upper extremity NCS/EMG Precautions and/or limitations: None The limb temperature was monitored continuously and remained between 32-36 degrees C during the performance of the NCS. Nerve Conduction Studies Anti Sensory Summary Table ?Stim Site NR Onset (ms) Norm Onset (ms) Peak (ms) Norm Peak (ms) O-P Amp (?V) Norm O-P Amp Site1 Site2 Delta-0 (ms) Dist (cm) Carlitos (m/s) Norm Carlitos (m/s) Left Median Anti Sensory (2nd Digit) Wrist ? 2.4 3.0 <3.6 25.5 >10 Wrist 2nd Digit 2.4 14.0 58 Left Radial Anti Sensory (Thumb) Forearm ? 1.4 1.8 <3.1 32.1 Forearm Thumb 1.4 0.0 Left Ulnar Anti Sensory (5th Digit) Wrist ? 2.4 2.9 <3.7 36.2 >15.0 Wrist 5th Digit 2.4 14.0 58 Motor Summary Table ?Stim Site NR Onset (ms) Norm Onset (ms) O-P Amp (mV) Norm O-P Amp iAmp (mV) Amp (1st) (%) Site1 Site2 Delta-0 (ms) Dist (cm) Carlitos (m/s) Norm Carlitos (m/s) Left Median Motor (Abd Poll Brev) Wrist ? 3.1 <3.9 12.8 >4.5 14.5 100.0 Elbow Wrist 3.7 20.0 54 >45 Elbow ? 6.8 11.7 13.4 91.4 Left Ulnar Motor (Abd Dig Minimi) Wrist ? 2.3 <3.0 9.1 >5 10.2 100.0 B Elbow Wrist 2.9 17.5 60 >45 B Elbow ? 5.2 8.9 10.1 97.8 A Elbow B Elbow 1.1 10.0 91 >45 A Elbow ? 6.3 9.0 10.3 98.9 EMG ?Side Muscle Nerve Root Ins Act Fibs Psw Amp Dur Poly Recrt Int Pat Comment Right 1stDorInt Ulnar C8-T1 Nml Nml Nml Nml Nml 0 Nml Complete Right FlexCarRad Median C6-7 Nml Nml Nml Nml Nml 0 Nml Complete Right Biceps Musculocut C5-6 Nml Nml Nml Nml Nml 0 Nml Complete Right Triceps Radial C6-7-8 Nml Nml Nml Nml Nml 0 Nml Complete Right Deltoid Axillary C5-6 Nml Nml Nml Nml Nml 0 Nml Complete Left 1stDorInt Ulnar C8-T1 Nml Nml Nml Nml Nml 0 Nml Complete Left FlexCarRad Median C6-7 Nml Nml Nml Nml Nml 0 Nml Complete Left Biceps Musculocut C5-6 Nml Nml Nml Nml Nml 0 Nml Complete Left Triceps Radial C6-7-8 Nml Nml Nml Nml Nml 0 Nml Complete Left Deltoid Axillary C5-6 Nml Nml Nml Nml Nml 0 Nml Complete FINDINGS: All motor and sensory nerves tested showed normal latencies, amplitudes and conduction velocities. Concentric needle EMG was performed in selected muscles of the left upper extremity. Study did not reveal signs of electric abnormalities as shown in the table below. IMPRESSION: 1. This is a normal study. 2. There is no electrodiagnostic evidence for median neuropathy, ulnar neuropathy, brachial plexopathy, or cervical radiculopathy. Thank you for your kind referral. Lucy Melvin MD, LESLIE Board Certified, [place] [employer] and [employer] (ABPMR) Board Certified, [place] Board of Electrodiagnostic Medicine (ABEM) [place] [id number] [facility]
== END 2023-11-07 08:56 | disposition home or self-care (01) ==
LOC: HO.NEURO 08:55
PROVIDERS: Visit Provider Physician Assistant
DX: R20.2 Paresthesia of skin (principal); R55 Syncope and collapse
CPT/HCPCS: 95886; 95909

== ENCOUNTER → 2023-11-07 09:13 | Outpatient (BNV) | payer OTHER, SELFPAY | PROVIDERS: Visit Provider Physical Medicine & Rehabilitation | DX: R20.2 Paresthesia of skin (principal) | CPT/HCPCS: 95886; 95909 ==

== ENCOUNTER 2023-11-09 01:03 | Emergency (ER) | payer OTHER, SELFPAY ==
[2023-11-09 01:11] VITALS: BP 123/84; BP 125/72; PULSE 102; PULSE 108; RESP 16; TEMP 37.1; O2SAT 100; BMI 25.3
--- NOTE | 2023-11-09 01:25 | ECG_ITS ---
Test Reason : chest tightness Blood Pressure : / mmHG Vent. Rate : 088 BPM Atrial Rate : 088 BPM P-R Int : 178 ms QRS Dur : 084 ms QT Int : 344 ms P-R-T Axes : 046 031 -01 degrees QTc Int : 416 ms Normal sinus rhythm Normal ECG When compared with ECG of 05-NOV-2023 02:53, No significant change was found Referred By: Generic ED Physician Electronically Signed By:GIOVANY ZHANG MD
[2023-11-09 01:55] LABS: Basophils Percent Auto 0.4 % (0-2); Eosinophils Absolute Auto 0.1 X10*3/uL (0.0-0.4); Eosinophils Percent Auto 1.1 % (0-4); Hematocrit 44.8 % (37.0-47.0); Hemoglobin 14.8 g/dl (12.0-16.0); Imm Gran Abs Auto 0.03 X10*3/uL (0.00-0.03); Imm Gran Pct Auto 0.3 % (0.0-0.4); Lymphocytes Absolute Auto 3.2 X10*3/uL (1.2-4.9); Lymphocytes Percent Auto 34.8 % (20-40); MANUAL DIFF FLAG NO; Mean Corpuscular Hemoglobin 28.1 pg (27.0-33.0); Mean Corpuscular Volume 85.2 fL (80.0-98.0); Mean Platelet Volume 10.3 fL (9.4-12.3); Monocytes Absolute Auto 0.4 X10*3/uL (0.1-1.2); Monocytes Percent Auto 4.8 % (2-11); Neutrophils Absolute Auto 5.3 x10*3/uL (2.0-8.3); Neutrophils Percent Auto 58.6 % (45-73); Platelet Count 339 X10*3/uL (160-400); Red Blood Count 5.26 X10*6/uL (4.20-5.50); Red Cell Distribution Width 12.4 % (11.0-16.0); White Blood Count 9.1 X10*3/uL (4.8-10.8)
[2023-11-09 01:56] LABS: Appearance Urine Clear; Color Urine Dark Yellow; Glucose Urine UA Negative (Negative); Leukocyte Esterase Urine Trace (Negative); Nitrite Urine Negative (Negative); PH 5.5 (5.0-9.0); Specific Gravity - Urine >= 1.030 (1.005-1.025); UMIC TRIGGER UACC YES; Urine Blood Negative (Negative); Urine Ketones 40 mg/dL (Negative); Urine Protein 30 (1+) mg/dL (Neg-Trace)
[2023-11-09 01:58] LABS: UPreg QC Valid YES; Urine Pregnancy NEGATIVE (NEGATIVE)
[2023-11-09 02:01] LABS: Bacteria Urine Trace (None Seen); RBC Urine 0-2 /HPF (0-2); UACC Culture Trigger YES
[2023-11-09 02:11] LABS: Alanine Aminotransferase 29 U/L (0-31); Albumin Level 4.6 g/dL (3.5-5.0); Alkaline Phosphatase 85 U/L (39-117); Anion Gap 16 (12-20); Aspartate Amino Transferase 20 U/L (5-31); Bilirubin Total 0.7 mg/dL (0.0-1.0); Blood Urea Nitrogen 16 mg/dL (9-16); Calcium 10.2 mg/dL (8.4-10.2); Carbon Dioxide 20 mmol/L (22-29); Chloride 108 mmol/L (96-108); Creatinine Clr Calc Pharmacy 96.6; Estimated Glomerular Filt Rate > 60; Glucose Random 92 mg/dL (60-115); Sodium 140 mmol/L (135-145); Total Protein 8.1 g/dL (6.5-8.0)
[2023-11-09 02:27] LABS: Troponin-I High Sensitivity < 2.7 ng/L (<3.5-17.0)
[2023-11-09 04:00] VITALS: BP 139/74; PULSE 102; RESP 16; TEMP 36.7; O2SAT 97
== END 2023-11-09 05:46 | disposition left against medical advice (07) ==
PROVIDERS: Emergency Provider Emergency Medicine; PCP Physician Assistant
DX: R07.9 Chest pain, unspecified (principal); M79.601 Pain in right arm; M54.2 Cervicalgia; E03.9 Hypothyroidism, unspecified; F41.1 Generalized anxiety disorder; I10 Essential (primary) hypertension; Z53.21 Procedure and treatment not carried out due to patient leaving prior to being seen by health care provider
CPT/HCPCS: 36415; 80053; 81001; 81025; 84484; 85025; 87086; 93005; 99283

== ENCOUNTER → 2023-11-09 01:25 | Outpatient (BNV) | payer OTHER, SELFPAY | PROVIDERS: Emergency Provider Emergency Medicine; PCP Physician Assistant; Visit Provider Internal Medicine Cardiovascular Disease | DX: R07.89 Other chest pain (principal) | CPT/HCPCS: 93010 ==

== ENCOUNTER 2023-11-18 12:15 | Outpatient (REF) | payer OTHER, SELFPAY ==
[2023-11-18 13:15] LABS: Hematocrit 42.5 % (37.0-47.0); Hemoglobin 14.1 g/dl (12.0-16.0); Mean Corpuscular HGB Conc 33.2 g/dl (31.0-35.0); Mean Corpuscular Hemoglobin 28.3 pg (27.0-33.0); Mean Corpuscular Volume 85.3 fL (80.0-98.0); Mean Platelet Volume 10.4 fL (9.4-12.3); Platelet Count 368 X10*3/uL (160-400); Red Blood Count 4.98 X10*6/uL (4.20-5.50); Red Cell Distribution Width 12.5 % (11.0-16.0); White Blood Count 8.5 X10*3/uL (4.8-10.8)
[2023-11-18 13:21] LABS: Estimated Average Glucose 91 mg/dL; Hemoglobin A1c % 4.8 % (<6.0)
[2023-11-18 13:39] LABS: Alanine Aminotransferase 36 U/L (0-31); Albumin Level 4.6 g/dL (3.5-5.0); Alkaline Phosphatase 82 U/L (39-117); Anion Gap 11 (12-20); Aspartate Amino Transferase 20 U/L (5-31); Bilirubin Total 0.4 mg/dL (0.0-1.0); Blood Urea Nitrogen 13 mg/dL (9-16); Calcium 10.1 mg/dL (8.4-10.2); Carbon Dioxide 26 mmol/L (22-29); Chloride 109 mmol/L (96-108); Estimated Glomerular Filt Rate > 60; Glucose Fasting 87 mg/dL (60-99); Glucose Random 87 mg/dL (60-115); Iron 36 mcg/dL (30-160); Percent Iron Saturation 12 % (15-50); Sodium 142 mmol/L (135-145); Total Iron Binding Capacity 299 mcg/dL (228-428); Total Protein 7.9 g/dL (6.5-8.0); Unsaturated Iron Binding 263 ug/dL
[2023-11-18 13:54] LABS: TSH reflex Free T4 10.06 uIU/mL (0.32-4.0)
[2023-11-18 14:08] LABS: Erythrocyte Sedimentation Rate 6 MM/HR (0-20)
[2023-11-18 14:56] LABS: Free T4 (Free Thyroxine) 0.94 ng/dL (0.71-1.85)
[2023-11-20 23:39] LABS: Thyroglobulin Antibodies 1 IU/mL (< or = 1); Thyroid Peroxidase Antibodies >900 IU/mL (<9)
== END 2023-11-18 12:16 | disposition home or self-care (01) ==
LOC: HO.LAB 12:15
PROVIDERS: PCP Physician Assistant; Visit Provider Physician Assistant
DX: D50.9 Iron deficiency anemia, unspecified (principal); E03.9 Hypothyroidism, unspecified; I15.9 Secondary hypertension, unspecified; R73.01 Impaired fasting glucose
CPT/HCPCS: 36415; 80048; 80053; 83036; 83540; 84439; 84443; 85027; 85652; 86376; 86800

== ENCOUNTER 2023-11-24 08:25 | Outpatient (AMB) | payer OTHER, SELFPAY ==
[2023-11-24 08:34] VITALS: BP 112/68; PULSE 88; O2SAT 97; BMI 31.0
--- NOTE | 2023-11-24 08:34 | MHC.PC.OV ---
Vital Signs 11/24/23 08:34 Height 5 ft 1 in Weight 164 lb BMI 31.0 BP 112/68 Blood Pressure Location Lt brachial Position Sitting Pulse 88 Pulse Source Pulse Oximeter Pulse Oximetry (%) 97 Oxygen Delivery Method Room Air Intake Visit Reasons: 1mof\u Splicing Supervisor Required: No Allergies labetalol Allergy (Verified 11/24/23 09:05) Swelling Seasonal Allergies Allergy (Verified 11/24/23 09:05) Headache Medication List - Last Reconciled 11/24/23 by Orlando Lucio PA-C fluoxetine 10 mg PO DAILY 30 days levothyroxine 50 mcg PO DAILY 30 days lorazepam 0.5 mg PO DAILY 10 days Tobacco use date assessed: 11/24/23 Dental Screening Dental Screen Date: 11/24/23 HPI 1mof\u HPI Details Patient is a 22-year-old female here today for a one-month follow-up visit. Patient has a past history significant hypothyroidism and anxiety. Concern--> she reports over last 2 weeks having burning sensation in pelvic pressure when urinating. PLAN: Will send for urinalysis to evaluate for UTI She has been struggling with panic disorder, anxiety over last few months. She reports her anxiety so bad to the point she has syncopal episodes. She does report lorazepam has been helpful. Had tried sertraline at 50 mg though felt it was not effective. Recently transitioned to fluoxetine 10 mg. She reports she still has anxious symptoms and has been taking lorazepam for panic. She does have a mental therapist though has not connected with her. She is interested in getting a new mental therapist. She does admit to some stressors in her personal life. She does have upcoming appointment with public relations officer about her hypothyroidism. Most recent peroxidase thyroid antibodies elevated. Ultrasound of thyroid showing--> Enlarged markedly heterogeneous thyroid gland without a focal nodule.. She continues on levothyroxine 50 mcg every morning. Most recent TSH much better. [facility] Medical History care in first trimester Spontaneous Healthy adult Surgical History No pertinent past surgical history Family History Mother No known health problems Father No known health problems Sister Type II diabetes mellitus Social History Housing: Apartment Alcohol intake: never Patient Tobacco Use Status: Never used Tobacco e-Cigarette/Vaping Use: Never Used Substance Use Type: Marijuana service: No Current occupational status: employed Current occupation: Works at [employer] Cognitive needs: No Hearing needs: No Vision needs: Yes Questionnaire PHQ-9 Over the last 2 weeks, how often have you been bothered by any of the following problems? 1. Little interest or pleasure in doing things: several days 2. Feeling down, depressed, or hopeless: several days 3. Trouble falling or staying asleep, or sleeping too much: several days 4. Feeling tired or having little energy: several days 5. Poor appetite or overeating: several days 6. Feeling bad about yourself - or that you are a failure or have let yourself or your family down: several days 7. Trouble concentrating on things, such as reading the newspaper or watching television: several days (panic attacks ) 8. Moving or speaking so slowly that other people could have noticed. Or the opposite - being so fidgety or restless that you have been moving around a lot more than usual: several days 9. Thoughts that you would be better off or of hurting yourself in some way: several days Total score: 9 Depression Screening Interpretation: Positive Depression Screening Done: Yes 73620 - PHQ-9 Billing: Yes Source: Developed by Drs. Raymond Nails, Josy Victor, David Starkey and colleagues, with an educational valeri from [employer]. Thrive Questionnaire Date Thrive assessed: 08/07/23 AUDIT C Alcohol Use Questionnaire (AUDIT-C) 1. How often do you have a drink containing alcohol?: Never 3. How often do you have six or more drinks on one occasion?: Never Total Score: 0 RENETTA-7 AMB Questionnaire RENETTA-7 Date RENETTA - 7 assessed: 08/07/23 Source: Developed by Drs. Raymond Nails, Josy Victor, David Starkey and colleagues, with an educational valeri from [employer]. Review of Systems Const Denies headache(s) Eyes Denies loss of vision ENT Denies vertigo, Denies dizziness, Denies headache(s) and Denies sore throat Card Denies chest pain, Denies leg edema and Denies lightheadedness Resp Denies cough, Denies hemoptysis and Denies wheezing GI Denies abdominal pain, Denies melena, Denies constipation, Denies diarrhea and Denies vomiting Denies urinary frequency, Denies dysuria and Denies urinary urgency Musc Denies arthralgias, Denies joint swelling, Denies numbness and Denies tingling Neuro Denies Abnormal speech present, Denies behavioral changes, Denies vertigo, Denies dizziness, Denies headache(s), Denies loss of vision, Denies memory loss, Denies numbness and Denies tingling Psych Reports anxiety, Denies behavioral changes, Denies depression, Reports irritability, Denies memory loss and Reports panic attacks Skyler/Lymph Denies easy bleeding and Denies easy bruising Aller/Immun Denies wheezing Physical exam (Primary Care) Vital Signs: Last Vital Signs Pulse 88 11/24/23 08:34 BP 112/68 11/24/23 08:34 Pulse Ox 97 11/24/23 08:34 Oxygen Delivery Method Room Air 11/24/23 08:34 BMI result Body Mass Index 31.0 Tobacco/Smoking Status: Tobacco use Status Tobacco use date assessed 11/24/23 11/24/23 08:40 Patient Tobacco Use Status Never used Tobacco 11/24/23 08:40 e-Cigarette/Vaping Use Never Used 11/24/23 08:40 PHQ-9: PHQ-9 Score PHQ-9: Total score 9 11/24/23 09:07 Depression Screening Interpretation: Positive Thrive Assessment: Date of Thrive Assessment Date Thrive assessed 08/07/23 11/24/23 08:40 Const General: healthy appearing, no acute distress, alert and awake Nutritional Appearance: well nourished Orientation/consciousness: oriented to person, oriented to place and oriented to time HENMT Ears: TM's normal bilaterally General nose exam: Normal nasal mucous membranes and turbinates present Eyes Conjunctivae: conjunctivae normal Sclerae: sclerae normal Pupils: Equal, round and reactive pupils present Neck Neck: Yes no lymphadenopathy and Yes no JVD Thyroid: Thyroid normal Carotids: no bruits Resp Effort & Inspection: normal respiratory effort and not tachypneic Auscultation: no crackles, no rales, no rhonchi and no wheezes Cardio Rate: regular rate Rhythm: regular rhythm Heart sounds: no murmurs and normal S1 and S2 GI Palpation (GI): Soft to palpation, nontender, no hepatomegaly and no splenomegaly Auscultation: normal bowel sounds Skin General skin exam: no rashes or lesions noted and dry skin Neuro General: oriented to person, oriented to place and oriented to time Cranial nerves: Yes Equal, round and reactive pupils present Speech: No Abnormal speech present Gait exam (Neuro): Normal gait present Motor exam (neuro): no tremor noted Extrem Right upper extremity: full ROM Left upper extremity: full ROM Right lower extremity: full ROM; no edema Left lower extremity: full ROM; no edema Psych Mental Status: mental status grossly normal Speech and movement: Normal speech and movement present Affect: normal affect Attitude: cooperative Thought process: Normal thought process present Assessment and Plan Assessment & Plan (1) Hypothyroid: Code(s): E03.9 - Hypothyroidism, unspecified Qualifiers: Hypothyroidism type: unspecified Qualified Code(s): E03.9 - Hypothyroidism, unspecified Plan: 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 Has upcoming appointment with endocrinology. Will continue levothyroxine 50 mcg. Ultrasound thyroid showing enlargement. Did discuss the correct administration of this medication. (2) RENETTA (generalized anxiety disorder): Code(s): F41.1 - Generalized anxiety disorder Plan: Continues to have anxious symptoms. Does use lorazepam on as needed basis with good effect. She reports Zoloft was not effective thus recently made transition to fluoxetine 10 mg. Follow-up in 6 weeks to evaluate effectiveness new SSRI therapy. She has called her therapy office to switch her mental health therapist. Orders: Orders UA CC w/rflx Micro + Cult Today R30.0 - Dysuria Coding Level of Care Code Est Pt Level 4 (24167) Diagnoses Hypothyroidism, unspecified type E03.9 Hypothyroidism type: unspecified RENETTA (generalized anxiety disorder) F41.1
== END 2023-11-24 09:32 | disposition home or self-care (01) ==
PROVIDERS: PCP Physician Assistant; Visit Provider Physician Assistant
DX: E03.9 Hypothyroidism, unspecified (principal); F41.1 Generalized anxiety disorder
CPT/HCPCS: 99214

== ENCOUNTER 2023-11-24 09:36 | Outpatient (REF) | payer OTHER, SELFPAY ==
[2023-11-24 10:51] LABS: Anion Gap 12 (12-20); Blood Urea Nitrogen 13 mg/dL (9-16); Calcium 9.8 mg/dL (8.4-10.2); Carbon Dioxide 22 mmol/L (22-29); Chloride 110 mmol/L (96-108); Estimated Glomerular Filt Rate > 60; Glucose Random 95 mg/dL (60-115); Potassium 4.3 mmol/L (3.3-5.1); Sodium 140 mmol/L (135-145)
[2023-11-24 10:56] LABS: Appearance Urine Clear; Color Urine Yellow; Glucose Urine UA Negative (Negative); Leukocyte Esterase Urine Negative (Negative); Nitrite Urine Negative (Negative); PH 5.5 (5.0-9.0); Urine Blood Negative (Negative); Urine Ketones Negative (Negative); Urine Protein Negative (Neg-Trace)
[2023-11-24 11:12] LABS: TSH reflex Free T4 11.38 uIU/mL (0.32-4.0)
[2023-11-24 12:02] LABS: Free T4 (Free Thyroxine) 0.85 ng/dL (0.71-1.85)
== END 2023-11-24 09:37 | disposition home or self-care (01) ==
LOC: HO.LAB 09:36
PROVIDERS: PCP Physician Assistant; Visit Provider Physician Assistant
DX: R55 Syncope and collapse (principal); E03.9 Hypothyroidism, unspecified; R30.0 Dysuria
CPT/HCPCS: 36415; 80048; 81003; 84439; 84443

== ENCOUNTER 2023-11-27 14:46 | Outpatient (AMB) | payer OTHER, SELFPAY ==
--- NOTE | 2023-11-27 14:47 | A.OFFVIS_ITS ---
Vital Signs 11/27/23 14:49 Height 5 ft 5 in Weight 167 lb 12.348 oz BMI 27.9 BP 114/68 Blood Pressure Location Lt brachial Position Sitting Pulse 98 Pulse Source Pulse Oximeter Intake Visit Reasons: Hypothyroidism-confirmed Intake Note: Patient present today for Hypothyroidism follow up visit. Rate Analyst Required: No Accompanied by: Spouse Allergies labetalol Allergy (Verified 11/27/23 14:51) Swelling Seasonal Allergies Allergy (Verified 11/27/23 14:51) Headache Medication List - Last Reconciled 11/27/23 by Raymond Trivedi MD fluoxetine 10 mg PO DAILY 30 days levothyroxine 50 mcg PO DAILY 30 days lorazepam 0.5 mg PO DAILY 10 days HPI Comments Details: 22 YO [Male/Female] who is seen in consultation at the request of his PCP for Hyothyroidism. Hx of hypothyroidism post- Currently using thyroid hormone. Started L-T4 3 wks ago Denies fatigue, weight gain, cold intolerance, +dry skin, hair loss, constipation. There is no hx of hyperlipidemia . Has obstructive sx of goiter . Denies consuming any kelp or seaweed. Not Desiring to become in near future. Menses: Not returned to nl Biotin: No Labs: [facility] Medical History care in first trimester Spontaneous Healthy adult Surgical History No pertinent past surgical history Family History Mother No known health problems Father No known health problems Sister Type II diabetes mellitus Social History Housing: Apartment Alcohol intake: never Patient Tobacco Use Status: Never used Tobacco e-Cigarette/Vaping Use: Never Used Substance Use Type: Marijuana service: No Current occupational status: employed Current occupation: Works at [employer] Cognitive needs: No Hearing needs: No Vision needs: Yes Physical Exam Vital Signs: Last Vital Signs Pulse 98 11/27/23 14:49 BP 114/68 11/27/23 14:49 BMI result Body Mass Index 27.9 HEENT reveals absence of lid lag , stare or proptosis or eyebrow loss. Thyroid gland is enlarged and measure 50 gms . No nodules or tenderness palpated. There is no cervical adenopathy palpated. Lungs CTA. Heart S1, S2 Reg R/R - M/R/G. Abdominal exam benign. Skin exam reveals absence of dryness or thyroid dermopathy or vitiligo. Nail exam reveals absence of thyroid acropachy or oncholysis. Neurologic exam reveals 2+ reflexes . Muscle Strength is 5/5 proximally. There are no tremors in upper extremities. 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 She is currently be replaced with 50 mcg levothyroxine. Plan is to increase levothyroxine to 100 mcg and recheck TSH and free T4 in 6 weeks time. We did talk about the idea that the thyroid is grossly enlarged and may be causing some obstructive symptoms and possibly a thyroidectomy may be indicated now or in the future. Patient does not want this done presently but will think about it. She also complained of abdominal symptoms associated with nausea and episodes of vomiting blood. This is probably unrelated to the thyroid and the patient was told to follow up with the primary care provider about this Orders: Orders Free T4 (Free Thyroxine) 6 Weeks E03.9 - Hypothyroidism, unspecified Thyroid Stimulating Hormone 6 Weeks E03.9 - Hypothyroidism, unspecified Medications: New levothyroxine 100 mcg PO DAILY 30 tabs 5RF Discontinued levothyroxine Discontinued Reason: Doctor's Order 50 mcg PO DAILY 30 days 30 tabs 1RF E03.9 - Hypothyroidism, unspecified Coding Level of Care Code New Pt Level 4 (91928) Diagnoses Hypothyroidism, unspecified type E03.9 Hypothyroidism type: unspecified
[2023-11-27 14:49] VITALS: BP 114/68; PULSE 98; BMI 27.9
== END 2023-11-27 15:32 | disposition home or self-care (01) ==
PROVIDERS: PCP Physician Assistant; Visit Provider Internal Medicine Endocrinology, Diabetes & Metabolism
DX: E03.9 Hypothyroidism, unspecified (principal)
CPT/HCPCS: 99204

== ENCOUNTER → 2023-11-27 14:46 | Outpatient (BNVA) | payer OTHER, SELFPAY | PROVIDERS: PCP Physician Assistant; Visit Provider Internal Medicine Endocrinology, Diabetes & Metabolism | DX: E03.9 Hypothyroidism, unspecified (principal) | CPT/HCPCS: 99202 ==

== ENCOUNTER 2023-12-15 14:27 | Outpatient (REF) | payer OTHER, SELFPAY ==
[2023-12-15 16:44] LABS: TSH reflex Free T4 5.64 uIU/mL (0.32-4.0)
[2023-12-15 16:47] LABS: Free T4 (Free Thyroxine) 0.91 ng/dL (0.71-1.85)
== END 2023-12-15 14:28 | disposition home or self-care (01) ==
LOC: HO.LAB 14:27
PROVIDERS: Internal Medicine Endocrinology, Diabetes & Metabolism; PCP Physician Assistant; Visit Provider Physician Assistant
DX: E03.9 Hypothyroidism, unspecified (principal)
CPT/HCPCS: 36415; 84439; 84443

== ENCOUNTER 2023-12-19 07:50 | Outpatient (REF) | payer OTHER, SELFPAY ==
--- NOTE | ~2023-12-19 | CT_ITS ---
EXAMINATION: CT BRAIN, HEAD CLINICAL INFORMATION: Syncope and collapse COMPARISON: CT scan of brain on 11/04/2015 TECHNIQUE: Multiple axial images were obtained from base of skull to the vertex without an with IV contrast enhancement. Coronal and sagittal images of the brain were reconstructed from the axial image data. This CT examination was performed using dose optimization techniques as appropriate, variously including the following: *Automated exposure control *Adjustment of mA and/or kV according to patient size (this includes techniques or standardized protocols for targeted exams where dose is matched to indication/reason for exam; i.e. extremities or head) *Use of iterative reconstruction technique FINDINGS: Ventricles, sulci and cisterns are normal. There is no midline shift, no abnormal intra- or extra- axial fluid accumulation. Jimenez and white matter differentiation is normal. Post contrast images show normal enhancement of major intracerebral blood vessels. No enhancing intracranial mass lesion or abnormal meningeal enhancement could be seen. Bone window images show no evidence of skull fracture. Prominent nasopharyngeal tonsil is present. CT/CT angio head IMPRESSION: 1. Unchanged Normal CT scan of the brain. 2. No intracranial hemorrhage or skull fracture is seen. 3. No evidence of space occupying or enhancing intracranial mass lesion could be found. 4. The current plain CT scan of the brain shows no diagnostic evidence of acute cerebral infarction. 5. Nasopharyngeal tonsil (adenoids) hypertrophy. 6. Interval resolution of right posterior lateral parietal scalp hematoma. EXAMINATION: CT ANGIOGRAM BRAIN, HEAD CLINICAL INFORMATION: Syncope and collapse COMPARISON: CT scan of brain on 11/04/2015 TECHNIQUE: Test bolus sequences followed by intravenous administration of 75 mL of Omnipaque 350 intravenous contrast. Helical imaging was performed in the axial plane from the skull base to the vertex. Delayed postcontrast imaging of the head was also performed. The data was processed at the senior medical technologist workstation for generation of MIP sequences. Three-dimensional volume rendered reformatted images were also generated at an offline 3-D workstation. The degree of stenosis determined by NASCET criteria. This CT examination was performed using dose optimization techniques as appropriate, variously including the following: *Automated exposure control *Adjustment of mA and/or kV according to patient size (this includes techniques or standardized protocols for targeted exams where dose is matched to indication/reason for exam; i.e. extremities or head) *Use of iterative reconstruction technique DLP: 1897 mGy-cm FINDINGS: There is normal visualization of bilateral anterior, middle and posterior cerebral arteries, internal carotid arteries, basilar artery and terminal portions of bilateral vertebral arteries. Anterior communicating artery is normal. Bilateral posterior communicating arteries are normal. Bilateral internal carotid siphons are smoothly patent. IMPRESSION: 1. Normal CT angiogram of the brain. 2. No focal cerebral arterial lesion or significant arterial stenosis is seen.
[2023-12-19] MEDS: iohexoL 350 MG/ML 75 ML INFUS..BTL IV (08:44)
== END 2023-12-19 07:51 | disposition home or self-care (01) ==
LOC: HO.CT 07:50
PROVIDERS: PCP Physician Assistant; Visit Provider Physician Assistant
DX: R55 Syncope and collapse (principal)
CPT/HCPCS: 70496; Q9967

== ENCOUNTER 2024-01-02 13:55 | Outpatient (AMB) | payer OTHER, SELFPAY ==
[2024-01-02 13:56] VITALS: BP 114/72; PULSE 78; TEMP 36.7; O2SAT 98; BMI 31.7
--- NOTE | 2024-01-02 13:56 | AM.OFFWIN_ITS ---
Intake Vital Signs 01/02/24 13:56 Height 5 ft 1 in Weight 168 lb BMI 31.7 BP 114/72 Blood Pressure Location Lt brachial Position Sitting Pulse 78 Pulse Source Pulse Oximeter Temp 98.0 F Temp Source Oral Pulse Oximetry (%) 98 Intake Visit Reasons: EP Sore throat Intake Note: pt is here for sore throat Patient Tobacco Use Status: Never used Tobacco Allergies labetalol Allergy (Verified 01/02/24 13:57) Swelling Seasonal Allergies Allergy (Verified 01/02/24 13:57) Headache Do you need a note to return to daycare/school/sports/work: No HPI EP Sore throat HPI Details This note is constructed using voice recognition software. While every effort has been made to ensure accuracy, support services tech errors may have been included. 23-year-old female patient presents with several day history throat pain, no fever, chills, does note a mild cough, where she is getting up clear secretions. She notes that she has allergies, and is waiting for her primary care provider to send her prescription for her Zyrtec, and has not pick this up [id number]. She does note that she has a 5-month-old child at home, who is being treated for a URI, however it was also potential that his symptoms were related to active teething and not a URI. She has not tried any medication to help improve the symptoms, but has increased her hydration to assist. [facility] Medical History care in first trimester Spontaneous Healthy adult Surgical History No pertinent past surgical history Family History Mother No known health problems Father No known health problems Sister Type II diabetes mellitus Social History Housing: Apartment Alcohol intake: never Patient Tobacco Use Status: Never used Tobacco e-Cigarette/Vaping Use: Never Used Substance Use Type: Marijuana service: No Current occupational status: employed Current occupation: Works at [employer] Cognitive needs: No Hearing needs: No Vision needs: Yes Review of Systems Const All systems reviewed & are unremarkable except as noted in HPI and below Physical Exam Vital Signs: Last Vital Signs Temp 98.0 F 01/02/24 13:56 Pulse 78 01/02/24 13:56 BP 114/72 01/02/24 13:56 Pulse Ox 98 01/02/24 13:56 BMI result Body Mass Index 31.7 Const General: cooperative, healthy appearing, comfortable and no acute distress Orientation/consciousness: patient oriented x3 Limitations: no limitations HEENT Head: Yes normal to inspection Ears: hearing grossly normal bilaterally, external ears normal and TM abnormal retracted bilateral General nose exam: Normal external nose present, Abnormal mucous membranes and turbinates present erythematous and Nasal discharge present clear Face and sinus: Yes normal facial exam and Yes sinuses nontender Mouth: Normal oral and palatal mucosa present and moist mucous membranes Throat: Yes tonsils normal, Yes uvula midline and Yes posterior oropharynx abnormal (Erythema) Eyes General: appearance normal, both eyes and all related structures Neck Neck: Yes normal visual inspection Resp Effort & Inspection: normal respiratory effort, able to speak in complete sentences, Actively coughing, no respiratory distress, not tachypneic, no tripod positioning and no use of accessory muscles Auscultation: clear to auscultation bilaterally Cardio Jugular venous distension: no JVD Rate: regular rate Rhythm: regular rhythm Heart sounds: S1 normal heart sound present, S2 normal heart sound present, no click, no gallops, no murmurs and no rubs Skin General skin exam: no rashes or lesions noted, elasticity normal and turgor normal Neuro General: patient oriented x3 Extrem General: Yes normal to inspection and Yes no clubbing, cyanosis or edema Assessment & Plan Assessment & Plan (1) Allergic rhinitis: Code(s): J30.9 - Allergic rhinitis, unspecified Qualifiers: Allergic rhinitis trigger: pollen Allergic rhinitis seasonality: seasonal Qualified Code(s): J30.1 - Allergic rhinitis due to pollen Plan: Advised patient to obtain [id number] Zyrtec, Claritin, Rosa or similar. Prescription provided for Flonase nasal spray for symptomatic management. Advised patient to follow with PCP, or walk-in with worsening symptoms. (2) Pharyngitis, acute: Code(s): J02.9 - Acute pharyngitis, unspecified Qualifiers: Pharyngitis/tonsillitis etiology: unspecified etiology Qualified Code(s): J02.9 - Acute pharyngitis, unspecified Plan: Rapid strep negative. Likely secondary to allergic rhinitis. Flonase nasal spray ordered for symptomatic management. Follow up as needed with worsening or failure to resolve. Plan See above for full details and plan. Medications: New fluticasone propionate 50 mcg/actuation administer into each nostril 1 spray intranasal BID PRN 16 grams 0RF allergy symptoms Coding Level of Care Code Est Pt Level 4 (16019) Diagnoses Seasonal allergic rhinitis due to pollen J30.1 Allergic rhinitis trigger: pollen Allergic rhinitis seasonality: seasonal Acute pharyngitis, unspecified etiology J02.9 Pharyngitis/tonsillitis etiology: unspecified etiology
== END 2024-01-02 14:53 | disposition home or self-care (01) ==
PROVIDERS: PCP Physician Assistant; Visit Provider Registered Nurse
DX: J30.1 Allergic rhinitis due to pollen (principal); J02.9 Acute pharyngitis, unspecified
CPT/HCPCS: 87880; 99213

== ENCOUNTER 2024-01-06 11:05 | Outpatient (REF) | payer OTHER, SELFPAY ==
[2024-01-06 12:43] LABS: TSH reflex Free T4 4.22 uIU/mL (0.32-4.0)
[2024-01-06 13:17] LABS: Free T4 (Free Thyroxine) 1.05 ng/dL (0.71-1.85)
== END 2024-01-06 11:06 | disposition home or self-care (01) ==
LOC: HO.LAB 11:05
PROVIDERS: PCP Physician Assistant; Visit Provider Physician Assistant
DX: E03.9 Hypothyroidism, unspecified (principal)
CPT/HCPCS: 36415; 84439; 84443

== ENCOUNTER 2024-01-27 13:51 | Outpatient (AMB) | payer OTHER, SELFPAY ==
[2024-01-27 13:59] VITALS: BP 110/64; PULSE 118; TEMP 37.1; O2SAT 100; BMI 32.0
--- NOTE | 2024-01-27 13:59 | A.OFFPC_ITS ---
Vital Signs 01/27/24 13:59 Height 5 ft 1 in Weight 169 lb 6 oz BMI 32.0 BP 110/64 Blood Pressure Location Lt brachial Position Sitting Pulse 118 H Pulse Source Pulse Oximeter Temp 98.7 F Temp Source Oral Pulse Oximetry (%) 100 Oxygen Delivery Method Room Air Intake Visit Reasons: diabetic ?? Director Of Exhibits Required: No Accompanied by: Self / Same As Patient Allergies labetalol Allergy (Verified 01/27/24 14:00) Swelling Seasonal Allergies Allergy (Verified 01/27/24 14:00) Headache Medication List - Last Reconciled 01/27/24 by Orlando Lucio PA-C fluticasone propionate 50 mcg/actuation 1 spray intranasal BID PRN levothyroxine 100 mcg PO DAILY lorazepam 0.5 mg PO DAILY 10 days Tobacco use date assessed: 11/24/23 Dental Screening Dental Screen Date: 11/24/23 HPI diabetic ?? HPI Details Patient is a 23-year-old female here today for a follow-up visit. Patient has a past history significant hypothyroidism and anxiety. Concern--> reports having a sore throat over the last few days. Reports she has been having some difficulty with swallowing and talking. Anxiety: Has stopped using fluoxetine as she reports her anxiety has been much better. She still does use lorazepam from time to time for panic symptoms. Her anxious symptoms have been much better controlled since getting control over her hypo functioning thyroid. Hypothyroidism: Most recent peroxidase thyroid antibodies elevated. Ultrasound of thyroid showing--> Enlarged markedly heterogeneous thyroid gland without a focal nodule.. Patient continues on levothyroxine 100 mcg and most recent TSH is have been trending down. [facility] Medical History care in first trimester Spontaneous Healthy adult Surgical History No pertinent past surgical history Family History Mother No known health problems Father No known health problems Sister Type II diabetes mellitus Social History Housing: Apartment Alcohol intake: never Patient Tobacco Use Status: Never used Tobacco e-Cigarette/Vaping Use: Never Used Substance Use Type: Marijuana service: No Current occupational status: employed Current occupation: Works at [employer] Cognitive needs: No Hearing needs: No Vision needs: Yes Questionnaire Thrive Questionnaire Date Thrive assessed: 08/07/23 RENETTA-7 AMB Questionnaire RENETTA-7 Date RENETTA - 7 assessed: 08/07/23 Source: Developed by Drs. Raymond Nails, Josy Victor, David Starkey and colleagues, with an educational valeri from [employer]. Review of Systems Const Denies headache(s) Eyes Denies loss of vision ENT Denies vertigo, Denies dizziness, Denies headache(s) and Denies sore throat Card Denies chest pain, Denies leg edema and Denies lightheadedness Resp Denies cough, Denies hemoptysis and Denies wheezing GI Denies abdominal pain, Denies melena, Denies constipation, Denies diarrhea and Denies vomiting Denies urinary frequency, Denies dysuria and Denies urinary urgency Musc Denies arthralgias, Denies joint swelling, Denies numbness and Denies tingling Neuro Denies Abnormal speech present, Denies behavioral changes, Denies vertigo, Denies dizziness, Denies headache(s), Denies loss of vision, Denies memory loss, Denies numbness and Denies tingling Psych Denies anxiety, Denies behavioral changes, Denies depression, Denies memory loss and Denies panic attacks Skyler/Lymph Denies easy bleeding and Denies easy bruising Aller/Immun Denies wheezing Physical exam (Primary Care) Vital Signs: Last Vital Signs Temp 98.7 F 01/27/24 13:59 Pulse 118 H 01/27/24 13:59 BP 110/64 01/27/24 13:59 Pulse Ox 100 01/27/24 13:59 Oxygen Delivery Method Room Air 01/27/24 13:59 BMI result Body Mass Index 32.0 Tobacco/Smoking Status: Tobacco use Status Tobacco use date assessed 11/24/23 01/27/24 13:59 Patient Tobacco Use Status Never used Tobacco 01/27/24 13:59 e-Cigarette/Vaping Use Never Used 01/27/24 13:59 Thrive Assessment: Date of Thrive Assessment Date Thrive assessed 08/07/23 01/27/24 13:59 Const General: healthy appearing, no acute distress, alert and awake Nutritional Appearance: well nourished Orientation/consciousness: oriented to person, oriented to place and oriented to time HENMT Other: BILATERAL TONSILS 3+ PASSED THE ANTERIOR PILLAR, ERYTHEMATOUS AND TONSILLAR EXUDATES NOTED. Ears: TM's normal bilaterally General nose exam: Normal nasal mucous membranes and turbinates present Throat: Yes abnormal tonsil Eyes Conjunctivae: conjunctivae normal Sclerae: sclerae normal Pupils: Equal, round and reactive pupils present Neck Neck: Yes no lymphadenopathy and Yes no JVD Thyroid: Thyroid normal Carotids: no bruits Resp Effort & Inspection: normal respiratory effort and not tachypneic Auscultation: no crackles, no rales, no rhonchi and no wheezes Cardio Rate: regular rate Rhythm: regular rhythm Heart sounds: no murmurs and normal S1 and S2 GI Palpation (GI): Soft to palpation, nontender, no hepatomegaly and no splenomegaly Auscultation: normal bowel sounds Skin General skin exam: no rashes or lesions noted and dry skin Neuro General: oriented to person, oriented to place and oriented to time Cranial nerves: Yes Equal, round and reactive pupils present Speech: No Abnormal speech present Gait exam (Neuro): Normal gait present Motor exam (neuro): no tremor noted Extrem Right upper extremity: full ROM Left upper extremity: full ROM Right lower extremity: full ROM; no edema Left lower extremity: full ROM; no edema Psych Mental Status: mental status grossly normal Speech and movement: Normal speech and movement present Affect: normal affect Attitude: cooperative Thought process: Normal thought process present Results AMB Rapid Strep AMB Rapid Strep Positive Last Edit by LISA Cintron on 01/27/24 14:03 Results Reviewed Results Reviewed: Laboratory Last Values Strep Scn Rapid Clinic Positive 01/27/24 14:03 Assessment and Plan Assessment & Plan (1) Pharyngitis: Code(s): J02.9 - Acute pharyngitis, unspecified Qualifiers: Pharyngitis/tonsillitis etiology: streptococcus Qualified Code(s): J02.0 - Streptococcal pharyngitis Plan: Patient does have positive rapid strep today in office. Tonsils with tonsillar exudates and erythema. Will supply patient with Augmentin (2) Hypothyroid: Code(s): E03.9 - Hypothyroidism, unspecified Qualifiers: Hypothyroidism type: unspecified Qualified Code(s): E03.9 - Hypothyroidism, unspecified Plan: Patient's most recent TSH seeming to trend down now at 4.2. Will continue patient on levothyroxine 100 mcg. Will recheck TSH to assure normalization. Her anxiety symptoms have seemingly resolved since thyroid has been regulated. Orders: Orders AMB Rapid Strep Screen 01/27/24 J02.9 - Acute pharyngitis, unspecified TSH reflex Free T4 01/27/24 E03.9 - Hypothyroidism, unspecified Medications: New amoxicillin-pot clavulanate 875-125 mg 1 tab PO BID 14 tabs 0RF 7 days J02.0 - Streptococcal pharyngitis Refilled levothyroxine 100 mcg PO DAILY 30 tabs 3RF E03.9 - Hypothyroidism, unspecified Coding Level of Care Code Est Pt Level 4 (73430) Diagnoses Pharyngitis due to Streptococcus species J02.0 Pharyngitis/tonsillitis etiology: streptococcus Hypothyroidism, unspecified type E03.9 Hypothyroidism type: unspecified
== END 2024-01-27 14:11 | disposition home or self-care (01) ==
PROVIDERS: PCP Physician Assistant; Visit Provider Physician Assistant
DX: J02.0 Streptococcal pharyngitis (principal); E03.9 Hypothyroidism, unspecified
CPT/HCPCS: 87880; 99214

== ENCOUNTER 2024-02-06 10:06 | Outpatient (REF) | payer OTHER, SELFPAY ==
[2024-02-06 11:36] LABS: TSH reflex Free T4 1.81 uIU/mL (0.32-4.0)
== END 2024-02-06 10:07 | disposition home or self-care (01) ==
LOC: HO.LAB 10:06
PROVIDERS: PCP Physician Assistant; Visit Provider Physician Assistant
DX: E03.9 Hypothyroidism, unspecified (principal)
CPT/HCPCS: 36415; 84443

== ENCOUNTER 2024-02-11 14:58 | Outpatient (AMB) | payer OTHER, SELFPAY ==
[2024-02-11 15:05] VITALS: BP 104/62; PULSE 108; O2SAT 98; BMI 32.5
--- NOTE | 2024-02-11 15:05 | A.OFFPC_ITS ---
Vital Signs 02/11/24 15:05 Height 5 ft 1 in Weight 172 lb 4 oz BMI 32.5 BP 104/62 Blood Pressure Location Lt brachial Position Sitting Pulse 108 H Pulse Source Pulse Oximeter Pulse Oximetry (%) 98 Oxygen Delivery Method Room Air Intake Visit Reasons: f/u Hypothyroid/ Anxiety Consultant Dietitian Required: No Accompanied by: Self / Same As Patient Allergies labetalol Allergy (Verified 02/11/24 15:25) Swelling Seasonal Allergies Allergy (Verified 02/11/24 15:25) Headache Medication List - Last Reconciled 02/11/24 by Orlando Lucio PA-C fluticasone propionate 50 mcg/actuation 1 spray intranasal BID PRN levothyroxine 100 mcg PO DAILY lorazepam 0.5 mg PO DAILY 10 days Tobacco use date assessed: 11/24/23 Dental Screening Dental Screen Date: 11/24/23 HPI f/u Hypothyroid/ Anxiety HPI Details Patient is a 23-year-old female here today for a follow-up visit. Patient has a past history significant hypothyroidism and anxiety. Anxiety: Has stopped using fluoxetine as she reports her anxiety has been much better. She still does use lorazepam from time to time for panic symptoms. Her anxious symptoms have been much better controlled since getting control over her hypo functioning thyroid. Hypothyroidism: Patient continues on levothyroxine 100 mcg and most recent TSH has normalized. She reports she feels well and will will continue levothyroxine 100 mcg on an empty stomach in the mornings. [facility] Medical History care in first trimester Spontaneous Healthy adult Surgical History No pertinent past surgical history Family History Mother No known health problems Father No known health problems Sister Type II diabetes mellitus Social History Housing: Apartment Alcohol intake: never Patient Tobacco Use Status: Never used Tobacco e-Cigarette/Vaping Use: Never Used Substance Use Type: Marijuana service: No Current occupational status: employed Current occupation: Works at [employer] Cognitive needs: No Hearing needs: No Vision needs: Yes Questionnaire Thrive Questionnaire Date Thrive assessed: 08/07/23 RENETTA-7 AMB Questionnaire RENETTA-7 Date RENETTA - 7 assessed: 08/07/23 Source: Developed by Drs. Raymond Nails, Josy Victor, David Starkey and colleagues, with an educational valeri from [employer]. Review of Systems Const Denies headache(s) Eyes Denies loss of vision ENT Denies vertigo, Denies dizziness, Denies headache(s) and Denies sore throat Card Denies chest pain, Denies leg edema and Denies lightheadedness Resp Denies cough, Denies hemoptysis and Denies wheezing GI Denies abdominal pain, Denies melena, Denies constipation, Denies diarrhea and Denies vomiting Denies urinary frequency, Denies dysuria and Denies urinary urgency Musc Denies arthralgias, Denies joint swelling, Denies numbness and Denies tingling Neuro Denies Abnormal speech present, Denies behavioral changes, Denies vertigo, Denies dizziness, Denies headache(s), Denies loss of vision, Denies memory loss, Denies numbness and Denies tingling Psych Denies anxiety, Denies behavioral changes, Denies depression, Denies memory loss and Denies panic attacks Skyler/Lymph Denies easy bleeding and Denies easy bruising Aller/Immun Denies wheezing Physical exam (Primary Care) Vital Signs: Last Vital Signs Pulse 108 H 02/11/24 15:05 BP 104/62 02/11/24 15:05 Pulse Ox 98 02/11/24 15:05 Oxygen Delivery Method Room Air 02/11/24 15:05 BMI result Body Mass Index 32.5 Tobacco/Smoking Status: Tobacco use Status Tobacco use date assessed 11/24/23 02/11/24 15:09 Patient Tobacco Use Status Never used Tobacco 02/11/24 15:09 e-Cigarette/Vaping Use Never Used 02/11/24 15:09 Thrive Assessment: Date of Thrive Assessment Date Thrive assessed 08/07/23 02/11/24 15:09 Const General: healthy appearing, no acute distress, alert and awake Nutritional Appearance: well nourished Orientation/consciousness: oriented to person, oriented to place and oriented to time HENMT Ears: TM's normal bilaterally General nose exam: Normal nasal mucous membranes and turbinates present Eyes Conjunctivae: conjunctivae normal Sclerae: sclerae normal Pupils: Equal, round and reactive pupils present Neck Neck: Yes no lymphadenopathy and Yes no JVD Thyroid: Thyroid normal Carotids: no bruits Resp Effort & Inspection: normal respiratory effort and not tachypneic Auscultation: no crackles, no rales, no rhonchi and no wheezes Cardio Rate: regular rate Rhythm: regular rhythm Heart sounds: no murmurs and normal S1 and S2 GI Palpation (GI): Soft to palpation, nontender, no hepatomegaly and no splenomegaly Auscultation: normal bowel sounds Skin General skin exam: no rashes or lesions noted and dry skin Neuro General: oriented to person, oriented to place and oriented to time Cranial nerves: Yes Equal, round and reactive pupils present Speech: No Abnormal speech present Gait exam (Neuro): Normal gait present Motor exam (neuro): no tremor noted Extrem Right upper extremity: full ROM Left upper extremity: full ROM Right lower extremity: full ROM; no edema Left lower extremity: full ROM; no edema Psych Mental Status: mental status grossly normal Speech and movement: Normal speech and movement present Affect: normal affect Attitude: cooperative Thought process: Normal thought process present Assessment and Plan Assessment & Plan (1) Hypothyroid: Code(s): E03.9 - Hypothyroidism, unspecified Qualifiers: Hypothyroidism type: unspecified Qualified Code(s): E03.9 - Hypothyroidism, unspecified Plan: Will continue patient on levothyroxine 100 mcg. Most recent TSH normal. She reports she feels great. We following with endocrinology in March. Will recheck TSH in 4 months. Orders: Orders TSH reflex Free T4 4 Months E03.9 - Hypothyroidism, unspecified Coding Level of Care Code Est Pt Level 3 (97794) Diagnoses Hypothyroidism, unspecified type E03.9 Hypothyroidism type: unspecified
== END 2024-02-11 15:36 | disposition home or self-care (01) ==
PROVIDERS: PCP Physician Assistant; Visit Provider Physician Assistant
DX: E03.9 Hypothyroidism, unspecified (principal)
CPT/HCPCS: 99213

== ENCOUNTER 2024-02-21 09:46 | Outpatient (REF) | payer OTHER, SELFPAY ==
[2024-02-21 12:19] LABS: TSH reflex Free T4 2.23 uIU/mL (0.32-4.0)
== END 2024-02-21 09:47 | disposition home or self-care (01) ==
LOC: HO.LAB 09:46
PROVIDERS: PCP Physician Assistant; Visit Provider Physician Assistant
DX: E03.9 Hypothyroidism, unspecified (principal)
CPT/HCPCS: 36415; 84443

== ENCOUNTER 2024-03-29 16:04 | Outpatient (AMB) | payer OTHER, SELFPAY ==
[2024-03-29 16:07] VITALS: BP 112/62; PULSE 101; BMI 34.6
--- NOTE | 2024-03-29 16:07 | A.OFFVIS_ITS ---
Vital Signs 03/29/24 16:07 Height 5 ft 1 in Weight 182 lb 15.739 oz BMI 34.6 BP 112/62 Blood Pressure Location Rt brachial Position Sitting Pulse 101 H Pulse Source Pulse Oximeter Intake Visit Reasons: f/u hypothyroidism-no vm Intake Note: Patient present today for Hypothyroidism follow up visit. Aged Or Disabled Care Worker Required: No Accompanied by: Self / Same As Patient Allergies labetalol Allergy (Verified 02/11/24 15:25) Swelling Seasonal Allergies Allergy (Verified 02/11/24 15:25) Headache Medication List - Last Reconciled 03/29/24 by Raymond Trivedi MD fluticasone propionate 50 mcg/actuation 1 spray intranasal BID PRN levothyroxine 100 mcg PO DAILY lorazepam 0.5 mg PO DAILY 10 days HPI Comments Details: 23 YO [Male/Female] who is seen in consultation at the request of his PCP for Hyothyroidism. Hx of hypothyroidism post- Currently using thyroid hormone. Started L-T4 3 wks ago Denies fatigue, weight gain, cold intolerance, +dry skin, hair loss, constipation. There is no hx of hyperlipidemia . Has obstructive sx of goiter . Denies consuming any kelp or seaweed. Not Desiring to become in near future. Menses: Not returned to nl Biotin: No Labs: On levothyroxine 100 mcg q.d. claims compliance with medications. Currently not trying to become . Does feel little more anxious and wants thyroid levels checked [facility] Medical History care in first trimester Spontaneous Healthy adult Surgical History No pertinent past surgical history Family History Mother No known health problems Father No known health problems Sister Type II diabetes mellitus Social History Housing: Apartment Alcohol intake: never Patient Tobacco Use Status: Never used Tobacco e-Cigarette/Vaping Use: Never Used Substance Use Type: Marijuana service: No Current occupational status: employed Current occupation: Works at [employer] Cognitive needs: No Hearing needs: No Vision needs: Yes Physical Exam Vital Signs: Last Vital Signs Pulse 101 H 03/29/24 16:07 BP 112/62 03/29/24 16:07 BMI result Body Mass Index 34.6 HEENT reveals absence of lid lag , stare or proptosis or eyebrow loss. Thyroid gland is enlarged and measure 50 gms . No nodules or tenderness palpated. There is no cervical adenopathy palpated. Lungs CTA. Heart S1, S2 Reg R/R - M/R/G. Abdominal exam benign. Skin exam reveals absence of dryness or thyroid dermopathy or vitiligo. Nail exam reveals absence of thyroid acropachy or oncholysis. Neurologic exam reveals 2+ reflexes . Muscle Strength is 5/5 proximally. There are no tremors in upper extremities. 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 She is currently be replaced with 100 mcg levothyroxine. She appears to be clinically and biochemically euthyroid Plan is to continue the present management. Will check TSH and free T4. Assuming above is normal, patient can follow up with her primary care provider returned back to endocrinology as needed Orders: Orders Thyroid Stimulating Hormone Today E03.9 - Hypothyroidism, unspecified Free T4 (Free Thyroxine) Today E03.9 - Hypothyroidism, unspecified Coding Level of Care Code Est Pt Level 3 (91833) Diagnoses Hypothyroidism, unspecified type E03.9 Hypothyroidism type: unspecified
== END 2024-03-29 16:21 | disposition home or self-care (01) ==
PROVIDERS: PCP Physician Assistant; Visit Provider Internal Medicine Endocrinology, Diabetes & Metabolism
DX: E03.9 Hypothyroidism, unspecified (principal)
CPT/HCPCS: 99213

== ENCOUNTER → 2024-03-29 16:04 | Outpatient (BNVA) | payer OTHER, SELFPAY | PROVIDERS: PCP Physician Assistant; Visit Provider Internal Medicine Endocrinology, Diabetes & Metabolism | DX: E03.9 Hypothyroidism, unspecified (principal) | CPT/HCPCS: 99212 ==

== ENCOUNTER 2024-03-30 12:14 | Outpatient (REF) | payer OTHER, SELFPAY ==
[2024-03-30 14:17] LABS: Free T4 (Free Thyroxine) 0.93 ng/dL (0.71-1.85); Thyroid Stimulating Hormone 3.91 uIU/mL (0.32-4.0)
== END 2024-03-30 12:15 | disposition home or self-care (01) ==
LOC: HO.LAB 12:14
PROVIDERS: PCP Physician Assistant; Visit Provider Internal Medicine Endocrinology, Diabetes & Metabolism
DX: E03.9 Hypothyroidism, unspecified (principal)
CPT/HCPCS: 36415; 84439; 84443

== ENCOUNTER 2024-04-12 10:40 | Outpatient (AMB) | payer OTHER, SELFPAY ==
[2024-04-12 11:00] VITALS: BP 108/70; PULSE 77; O2SAT 98; BMI 34.6
--- NOTE | 2024-04-12 11:00 | AM.OFFWIN_ITS ---
Intake Vital Signs 04/12/24 11:00 Height 5 ft 1 in Weight 183 lb 6 oz BMI 34.6 BP 108/70 Blood Pressure Location Rt brachial Position Sitting Pulse 77 Pulse Source Pulse Oximeter Pulse Oximetry (%) 98 Oxygen Delivery Method Room Air Intake Visit Reasons: EP- confirmation Intake Note: Patient here because she has been feeling a little weird, she states she recently took a test which came back positive and then took two more test which were negative. Patient Tobacco Use Status: Never used Tobacco Allergies labetalol Allergy (Verified 04/12/24 11:25) Swelling Seasonal Allergies Allergy (Verified 04/12/24 11:25) Headache Do you need a note to return to daycare/school/sports/work: Yes HPI HPI Comments History of Present Illness Details Patient is a 23-year-old female questioning whether she is or not. She tells me she took a test on April 09 and it was positive. Then she took 2 more test on April 10 and they were both negative. She tells me she prompted to take the test because she felt fuentes and nauseous and like her thyroid was elevated and she was told can make your thyroid out of control . She denies any bleeding, cramping, abdominal pain or fevers. She tells me she does have a history of 2 miscarriages, 1 in 2019 and 1 in 2020. She tells me her last menstrual period was sometime in early March but it was only 5 days versus the typical 7 days. When asked why she took 2 more test on April 10, she told me that her mother thinks the test from the was a ?joke test because her cousin gave it to her and they do not know where that cousin got it from. So they think it might be a fake test meant to be positive as a joke. [facility] Medical History care in first trimester Spontaneous Healthy adult Surgical History No pertinent past surgical history Family History Mother No known health problems Father No known health problems Sister Type II diabetes mellitus Social History Housing: Apartment Alcohol intake: never Patient Tobacco Use Status: Never used Tobacco e-Cigarette/Vaping Use: Never Used Substance Use Type: Marijuana service: No Current occupational status: employed Current occupation: Works at [employer] Cognitive needs: No Hearing needs: No Vision needs: Yes Review of Systems Const All systems reviewed & are unremarkable except as noted in HPI and below Physical Exam Vital Signs: Last Vital Signs Pulse 77 04/12/24 11:00 BP 108/70 04/12/24 11:00 Pulse Ox 98 04/12/24 11:00 Oxygen Delivery Method Room Air 04/12/24 11:00 BMI result Body Mass Index 34.6 Const General: cooperative, healthy appearing, comfortable, no acute distress and well developed Orientation/consciousness: patient oriented x3 Limitations: no limitations HEENT Head: Yes normal to inspection Neck Neck: Yes normal visual inspection and Yes supple Neuro General: patient oriented x3 Results AMB Urinalysis, Automated UA Leukoctes 0 Reuben/uL Last Edit by LISA Contreras on 04/12/24 11:43 UA Nitrite Negative Last Edit by LISA Contreras on 04/12/24 11:43 UA Urobilinogen 0.2 mg/dL Last Edit by LISA Contreras on 04/12/24 11:43 UA Protein 0 mg/dL Last Edit by LISA Contreras on 04/12/24 11:43 UA pH 6.0 Last Edit by LISA Contreras on 04/12/24 11:43 UA Blood 0 Gerardo/uL Last Edit by LISA Contreras on 04/12/24 11:43 UA Specific Yolyn 1.025 Last Edit by LISA Contreras on 04/12/24 11:43 UA Ketone Negative Last Edit by LISA Contreras on 04/12/24 11:43 UA Bilirubin 0 mg/dL Last Edit by LISA Contreras on 04/12/24 11:43 UA Glucose 0 mg/dL Last Edit by LISA Contreras on 04/12/24 11:43 AMB Test Urine AMB Test Urine Negative Last Edit by LISA Contreras on 04/12/24 11:44 Assessment & Plan Assessment & Plan (1) test negative: Code(s): Z32.02 - Encounter for test, result negative Plan: Are in office urine test was negative today. Recommended patient be on the look out for any bleeding, cramping, abdominal pain or fevers and if she experiences any of these symptoms, she should go to the emergency department immediately. Recommended she repeat the urine [id number] test in 1 week. If it is positive, recommended she follow up with her OBGYN as soon as possible. Plan See above Coding Level of Care Code Est Pt Level 3 (85090) Diagnoses test negative Z32.02
== END 2024-04-12 11:53 | disposition home or self-care (01) ==
PROVIDERS: PCP Physician Assistant; Visit Provider Physician Assistant
DX: Z32.02 Encounter for pregnancy test, result negative (principal); Z13.9 Encounter for screening, unspecified

== ENCOUNTER → 2024-04-12 10:40 | Outpatient (BNVA) | payer OTHER, SELFPAY | PROVIDERS: PCP Physician Assistant; Visit Provider Physician Assistant | DX: Z32.02 Encounter for pregnancy test, result negative (principal) | CPT/HCPCS: 81003; 81025; 99212 ==

== ENCOUNTER 2024-04-30 11:03 | Outpatient (AMB) | payer OTHER, SELFPAY ==
[2024-04-30 11:05] VITALS: BP 112/72; PULSE 88; BMI 34.9
--- NOTE | 2024-04-30 11:05 | MHC.OFFVIS ---
Vital Signs 04/30/24 11:05 Height 5 ft 1 in Weight 184 lb 15.485 oz BMI 34.9 BP 112/72 Blood Pressure Location Lt brachial Position Sitting Pulse 88 Pulse Source Pulse Oximeter Intake Visit Reasons: f/u hypothyroidism-conf Intake Note: Patient present today for hypothyroidism follow up visit. 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 Hx of hypothyroidism post- diagnosed October 2023 with subclinical hypothyroidism and labs had shown TSH elevated at 24 with normal free T4. Given the degree of TSH elevation she was started levothyroxine Started L-T4 October 2023 Denies , cold intolerance, +dry skin, hair loss, constipation. There is no hx of hyperlipidemia . Has obstructive sx of goiter . Denies consuming any kelp or seaweed. LMP March 24 2024 Tested positive for 04/27/24 and informed us she will be planning for Currenlty 6 weeks G4 , scheduled for 05/03/24 for medical 4 pregnancies, miscarriage 2019 and 2020. Son is 9 months old. Biotin: No On levothyroxine 100 mcg q.d. claims compliance with medications. Physical exam General: sitting comfortably in no acute distress HEENT: normocephalic/atraumatic, moist oral mucosa Neck: supple, symmetrical, Thyroid gland is enlarged Cardiac: normal heart sounds Pulm: normal breath sounds B/L, no added breath sounds Abd: not distended, no tenderness Extremities: no edema, no signs of myxedema Neuro: AAO x3, Speech: normal, no facial droop, moving all 4 extremities Laboratory Tests 11/18/23 12/15/23 01/06/24 12:30 15:02 11:28 TSH 5.64 H 4.22 H Free T4 0.91 1.05 Thyroglobulin Antibody 1 Thyroid Peroxidase Ab >900 H 02/06/24 02/21/24 03/30/24 10:20 10:41 12:25 TSH 1.81 2.23 3.91 Free T4 0.93 Thyroglobulin Antibody Thyroid Peroxidase Ab US THYROID 10/2023 CLINICAL INFORMATION: Fullness of neck, swelling, lump, hypothyroidism. COMPARISON: None available. TECHNIQUE: Linear transducer garland-scale and color Doppler examination with attention to the region of the thyroid. FINDINGS: SIZE: Measurements of the thyroid lobes and nodules are given in sagittal, anteroposterior and transverse dimensions respectively. Right Thyroid Lobe: 4.9 x 1.3 x 1.7 cm, volume 5.7 mL. Parenchyma: The gland echotexture is heterogeneous. Thyroid vascularity is increased. Left Thyroid Lobe: 5.9 x 1.5 x 2.0 cm, volume 9.3 mL. Parenchyma: The gland echotexture is heterogeneous. Thyroid vascularity is increased. Isthmus: 0.6 cm in maximum AP dimension. No focal thyroid nodule is seen. NODES: No lymphadenopathy is seen in the tissue surrounding the thyroid gland. US/US thyroid IMPRESSION: Enlarged markedly heterogeneous thyroid gland without a focal nodule. No further follow-up is recommended. [facility] Medical History care in first trimester Spontaneous Healthy adult Surgical History No pertinent past surgical history Family History Mother No known health problems Father No known health problems Sister Type II diabetes mellitus Social History Housing: Apartment Alcohol intake: never Patient Tobacco Use Status: Never used Tobacco e-Cigarette/Vaping Use: Never Used Substance Use Type: Marijuana service: No Current occupational status: employed Current occupation: Works at [employer] Cognitive needs: No Hearing needs: No Vision needs: Yes Assessment & Plan Assessment & Plan (1) Hypothyroid: Code(s): E03.9 - Hypothyroidism, unspecified Category: Medical Qualifiers: Hypothyroidism type: unspecified Qualified Code(s): E03.9 - Hypothyroidism, unspecified Plan: Patient with a history of hypothyroidism diagnosed in September 2023 in her . On levothyroxine 100 mcg daily. Currently 6 weeks , found out through positive test on 04/27/2024. She is scheduled for medical on 05/03/2024. However for now given that she is I have asked her to increase the dose of levothyroxine by 30% by taking 2 extra pills of 100 mcg in a week. I have asked her to start this tomorrow on 05/01/2024 and she can do 200 mcg on Saturdays and Wednesdays. If she goes ahead with the on 05/03/2024 I have asked her to revert back to 100 mcg daily. I will order blood work for today as well as to be repeated in 4 weeks. I will see her back in 3 months. Plan: -increase levothyroxine to 200 mcg on Saturdays and Wednesdays and take 100 mcg daily on other days of the week -if goes ahead with a medical on 05/03/2024, revert back to taking 100 mcg daily -labs TSH, free T4, total T3 ordered for today and we will plan to repeat back in 4 weeks -counseled patient regarding increase need of levothyroxine in and to always inform us whenever she finds out she is in the future and to increased dose to taking 2 extra pills in a week in the future. Plan I spent 30 minutes in reviewing the record, seeing the patient and documenting in the medical record. Orders: Orders Thyroid Stimulating Hormone Today Z3A.01 - Less than 8 weeks gestation of Free T4 (Free Thyroxine) Today Z3A.01 - Less than 8 weeks gestation of Triiodothyronine T3 Total Today Z3A.01 - Less than 8 weeks gestation of Hemoglobin A1c Today Z3A.01 - Less than 8 weeks gestation of Glucose Fasting Today Z3A.01 - Less than 8 weeks gestation of Medications: Refilled levothyroxine 100 mcg PO DAILY 30 tabs 6RF E03.9 - Hypothyroidism, unspecified Patient Instructions: Take 2 pills of levothyroxine 100 mcg (200 mcg ) on Friday and Friday till you are completely done with the procedure If procedure is done, go back to taking levothyroxine 100 mcg daily. Do labs today Repeat labs in 4 weeks Follow up in 3 months Coding Level of Care Code Est Pt Level 4 (45770) Diagnoses Hypothyroidism, unspecified type E03.9 Hypothyroidism type: unspecified Time Spent (min) 30
== END 2024-04-30 11:32 | disposition home or self-care (01) ==
PROVIDERS: PCP Physician Assistant; Visit Provider Student in an Organized Health Care Education/Training Program
DX: E03.9 Hypothyroidism, unspecified (principal)
CPT/HCPCS: 99214

== ENCOUNTER → 2024-04-30 11:03 | Outpatient (BNVA) | payer OTHER, SELFPAY | PROVIDERS: PCP Physician Assistant; Visit Provider Student in an Organized Health Care Education/Training Program | DX: E03.9 Hypothyroidism, unspecified (principal) | CPT/HCPCS: 99212 ==

== ENCOUNTER 2024-04-30 11:34 | Outpatient (REF) | payer OTHER, SELFPAY ==
[2024-04-30 13:39] LABS: Estimated Average Glucose 105 mg/dL; Hemoglobin A1C 116.2566 umol/L; Hemoglobin A1c % 5.3 % (<6.0); Total Hemoglobin (HGBA1C) 3389.6999 umol/L
[2024-04-30 13:48] LABS: Glucose Fasting 98 mg/dL (60-99)
[2024-04-30 14:24] LABS: Free T4 (Free Thyroxine) 1.12 ng/dL (0.71-1.85); Thyroid Stimulating Hormone 6.73 uIU/mL (0.32-4.0)
[2024-05-02 06:03] LABS: Triiodothyronine T3 Total 137 ng/dL (76-181)
== END 2024-04-30 11:35 | disposition home or self-care (01) ==
LOC: HO.10HDL 11:34
PROVIDERS: Visit Provider Student in an Organized Health Care Education/Training Program
DX: Z3A.01 Less than 8 weeks gestation of pregnancy (principal)
CPT/HCPCS: 36415; 82947; 83036; 84439; 84443; 84480

== ENCOUNTER 2024-05-18 16:43 | Outpatient (REF) | payer OTHER, SELFPAY ==
[2024-05-18 17:55] LABS: TSH reflex Free T4 6.73 uIU/mL (0.32-4.0); Thyroid Stimulating Hormone 6.73 uIU/mL (0.32-4.0)
[2024-05-18 17:56] LABS: Free T4 (Free Thyroxine) 1.06 ng/dL (0.71-1.85)
[2024-05-20 02:34] LABS: Triiodothyronine T3 Total 117 ng/dL (76-181)
== END 2024-05-18 16:44 | disposition home or self-care (01) ==
LOC: HO.LAB 16:43
PROVIDERS: PCP Physician Assistant; Visit Provider Student in an Organized Health Care Education/Training Program
DX: E03.9 Hypothyroidism, unspecified (principal)
CPT/HCPCS: 36415; 84439; 84443; 84480

== ENCOUNTER 2024-06-18 16:06 | Outpatient (REF) | payer OTHER, SELFPAY ==
[2024-06-18 17:54] LABS: Free T4 (Free Thyroxine) 1.14 ng/dL (0.71-1.85); Thyroid Stimulating Hormone 2.76 uIU/mL (0.32-4.0)
== END 2024-06-18 16:07 | disposition home or self-care (01) ==
LOC: HO.LAB 16:06
PROVIDERS: PCP Physician Assistant; Visit Provider Student in an Organized Health Care Education/Training Program
DX: E03.9 Hypothyroidism, unspecified (principal)
CPT/HCPCS: 36415; 84439; 84443

== ENCOUNTER 2024-08-02 11:16 | Outpatient (AMB) | payer OTHER, SELFPAY ==
--- NOTE | 2024-08-02 11:21 | MHC.OFFVIS ---
Vital Signs 08/02/24 11:25 Height 5 ft 2.05 in Weight 195 lb 15.855 oz BMI 35.8 BP 110/68 Blood Pressure Location Rt brachial Position Sitting Pulse 101 H Pulse Source Pulse Oximeter Pulse Oximetry (%) 98 Oxygen Delivery Method Room Air Intake Visit Reasons: f/u hypothyroidism/Left vm Intake Note: Patient present today for hypothyroidism Data Input Clerk Required: No Accompanied by: Self / Same As Patient Allergies labetalol Allergy (Verified 08/02/24 11:24) Swelling Seasonal Allergies Allergy (Verified 08/02/24 11:24) Headache Medication List - Last Reconciled 08/02/24 by Marisa Dolan MD levothyroxine 112 mcg PO DAILY lorazepam 0.5 mg PO DAILY 10 days HPI Comments Details: 23 YO Female who is seen for follow up of Hyothyroidism. Hx of hypothyroidism post- diagnosed October 2023 with subclinical hypothyroidism and labs had shown TSH elevated at 24 with normal free T4. Given the degree of TSH elevation she was started levothyroxine Started L-T4 October 2023 Denies , cold intolerance, +dry skin, hair loss, constipation. There is no hx of hyperlipidemia . Has obstructive sx of goiter . Denies consuming any kelp or seaweed. 4 pregnancies, miscarriage 2019 and 2023. Biotin: No Interval history April 2024: Levothyroxine increased from 100 to 112 mcg daily Labs from May 2024 showed normal TSH and free T4. Currently taking levothyroxine 112 mcg daily, appropriate administration and adherence. LMP 07/10/24, not on contraceptives. Physical exam General: sitting comfortably in no acute distress HEENT: normocephalic/atraumatic, moist oral mucosa Neck: supple, symmetrical, Thyroid gland is enlarged Cardiac: normal heart sounds Pulm: normal breath sounds B/L, no added breath sounds Abd: not distended, no tenderness Extremities: no edema, no signs of myxedema Neuro: AAO x3, Speech: normal, no facial droop, moving all 4 extremities Laboratory Tests 11/18/23 12/15/23 01/06/24 12:30 15:02 11:28 TSH 5.64 H 4.22 H Free T4 0.91 1.05 Thyroglobulin Antibody 1 Thyroid Peroxidase Ab >900 H 02/06/24 02/21/24 03/30/24 10:20 10:41 12:25 TSH 1.81 2.23 3.91 Free T4 0.93 Thyroglobulin Antibody Thyroid Peroxidase Ab Laboratory Tests 11/18/23 03/30/24 04/30/24 12:30 12:25 11:40 TSH 3.91 6.73 H Free T4 0.93 1.12 Total T3 Thyroglobulin Antibody 1 Thyroid Peroxidase Ab >900 H 05/18/24 06/18/24 16:54 16:14 TSH 6.73 H 2.76 Free T4 1.06 1.14 Total T3 117 Thyroglobulin Antibody Thyroid Peroxidase Ab US THYROID 10/2023 CLINICAL INFORMATION: Fullness of neck, swelling, lump, hypothyroidism. COMPARISON: None available. TECHNIQUE: Linear transducer garland-scale and color Doppler examination with attention to the region of the thyroid. FINDINGS: SIZE: Measurements of the thyroid lobes and nodules are given in sagittal, anteroposterior and transverse dimensions respectively. Right Thyroid Lobe: 4.9 x 1.3 x 1.7 cm, volume 5.7 mL. Parenchyma: The gland echotexture is heterogeneous. Thyroid vascularity is increased. Left Thyroid Lobe: 5.9 x 1.5 x 2.0 cm, volume 9.3 mL. Parenchyma: The gland echotexture is heterogeneous. Thyroid vascularity is increased. Isthmus: 0.6 cm in maximum AP dimension. No focal thyroid nodule is seen. NODES: No lymphadenopathy is seen in the tissue surrounding the thyroid gland. US/US thyroid IMPRESSION: Enlarged markedly heterogeneous thyroid gland without a focal nodule. No further follow-up is recommended. [facility] Medical History care in first trimester Spontaneous Healthy adult Surgical History No pertinent past surgical history Family History Mother No known health problems Father No known health problems Sister Type II diabetes mellitus Social History Housing: Apartment Alcohol intake: never Patient Tobacco Use Status: Never used Tobacco e-Cigarette/Vaping Use: Never Used Substance Use Type: Marijuana service: No Current occupational status: employed Current occupation: Works at [employer] Cognitive needs: No Hearing needs: No Vision needs: Yes Assessment & Plan Assessment & Plan (1) Hypothyroid: Code(s): E03.9 - Hypothyroidism, unspecified Category: Medical Qualifiers: Hypothyroidism type: unspecified Qualified Code(s): E03.9 - Hypothyroidism, unspecified Plan: Patient with a history of hypothyroidism diagnosed in September 2023 in her . On levothyroxine 112 mcg daily increased from 100 mcg daily in April 2024. Labs from May 2024 showed she was biochemically euthyroid. Plan: -continue levothyroxine 112 mcg daily -repeat blood work ordered with TSH and free T4 to be done today, if this is normal we will plan to repeat blood work in 6 months and prior to follow up in 1 year -follow up in 1 year -counseled patient regarding increase need of levothyroxine in and to always inform us whenever she finds out she is in the future and to increased dose to taking 2 extra pills in a week in the future. Plan See above Orders: Orders Thyroid Stimulating Hormone Today E03.9 - Hypothyroidism, unspecified Free T4 (Free Thyroxine) Today E03.9 - Hypothyroidism, unspecified Medications: Refilled levothyroxine 112 mcg PO DAILY 30 tabs 10RF Patient Instructions: Continue levothyroxine 112 mcg daily Do blood work today We will reach out with results Follow up in 1 year Coding Level of Care Code Est Pt Level 3 (51623) Diagnoses Hypothyroidism, unspecified type E03.9 Hypothyroidism type: unspecified
[2024-08-02 11:25] VITALS: BP 110/68; PULSE 101; O2SAT 98; BMI 35.8
== END 2024-08-02 11:40 | disposition home or self-care (01) ==
PROVIDERS: PCP Physician Assistant; Visit Provider Student in an Organized Health Care Education/Training Program
DX: E03.9 Hypothyroidism, unspecified (principal)
CPT/HCPCS: 99213

== ENCOUNTER → 2024-08-02 11:16 | Outpatient (BNVA) | payer OTHER, SELFPAY | PROVIDERS: PCP Physician Assistant; Visit Provider Student in an Organized Health Care Education/Training Program | DX: E03.9 Hypothyroidism, unspecified (principal) | CPT/HCPCS: 99212 ==

== ENCOUNTER 2024-08-02 11:44 | Outpatient (REF) | payer OTHER, SELFPAY ==
--- OUTSIDE RECORDS SUMMARY | 2024-08-02 13:04 | XMS_ITS | Clinical Summary ---
Author Organization [employer] [facility] Address [address] [place] [address] Care Team Providers Care Branch Service Leader Name Role Phone Unavailable Primary Care Provider Unavailabl e Social History Tobacco Use Types Packs/Day Years Used Date Smoking Tobacco: Never Assessed Comments Unknown Sex and Gender Information Value Date Recorded Sex Assigned at Not on file Legal Sex Female 11:07 AM EDT Gender Identity Not on file Sexual Orientation Not on file Plan of Treatment Health Maintenance Due Date Last Done Comments Gonorrhea/Chlamydia Screening 2001 DTaP,Tdap,and Td Vaccines (1 - Tdap) 2008 HPV Vaccines (1 - 3-dose series) 2016 Meningococcal B Vacine (1 of 2 - Standard) 2017 Hepatitis B Vaccines (1 of 3 - 19+ 3-dose series) 2020 Cervical Cancer Screening: P ap Smear 2022 Depression Screening 02/18/2024 HIV Screening 02/18/2024 Hepatitis C Screening 02/18/2024 Social Influencers of Health Screening 02/18/2024 COVID-19 Vaccine ( - 2023-2 5 season) 2024 Influenza Vaccine (#1) 2024 HIB Vaccines Aged Out No longer eligi ble based on patient's age to complete this topic Hepatitis A Vaccines Aged Out No long er eligible based on patient's age to complete this topic IPV Vaccines Aged Out No longer eligi ble based on patient's age to complete this topic MMR Vaccines Aged Out No longer eligi ble based on patient's age to complete this topic Meningococcal ACWY Vaccine Aged Out N o longer eligible based on patient's age to complete this topic Pneumococcal Vaccine: Pediat rics (0 to 5 Years) and At-Risk Patients (6 to 64 Years) Aged Out No longer eligible b ased on patient's age to complete this topic RSV Immunization Patients Un genaro 20 months Aged Out No longer eligible b ased on patient's age to complete this topic Varicella Vaccines Aged Out No longer eligible based on patient's age to complete this topic
[2024-08-02 13:21] LABS: Free T4 (Free Thyroxine) 1.19 ng/dL (0.71-1.85); Thyroid Stimulating Hormone 3.16 uIU/mL (0.32-4.0)
== END 2024-08-02 11:45 | disposition home or self-care (01) ==
LOC: HO.10HDL 11:44
PROVIDERS: Visit Provider Student in an Organized Health Care Education/Training Program
DX: E03.9 Hypothyroidism, unspecified (principal)
CPT/HCPCS: 36415; 84439; 84443

== ENCOUNTER 2024-10-28 11:36 | Outpatient (AMB) | payer OTHER, SELFPAY ==
--- NOTE | 2024-10-28 11:42 | A.OFFPC_ITS ---
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 Patient has a past history significant hypothyroidism and anxiety. Anxiety: As previously on SSRI therapy though felt it was not effective for her. She still does use lorazepam from time to time for panic symptoms. Her anxious symptoms have been much better controlled since getting control over her hypo functioning thyroid. Hypothyroidism: She initially noticed abnormal feelings in her body and an intermittent increase in her anxiety levels, which she believes correlates with her thyroid condition. Although her last thyroid function test three months prior was within normal limits, she seeks to have her levels rechecked sooner due to these persistent symptoms. Her weight has increased, which could potentially be attributable to thyroid dysfunction, among other factors. She does continue on 117 mcg of levothyroxine at this time and does report taking the medication on empty stomach in the mornings. OBGYN: Needs PAP Vaccines: Up-to-date with COVID vaccine, tetanus vaccine and pneumonia vaccine [facility] Medical History care in first trimester Spontaneous Healthy adult Surgical History No pertinent past surgical history Family History Mother No known health problems Father No known health problems Sister Type II diabetes mellitus Social History (Updated 10/28/24 @ 11:54 by Orlando Lucio PA-C) Housing: Apartment Alcohol intake: never Patient Tobacco Use Status: Never used Tobacco e-Cigarette/Vaping Use: Never Used Substance Use Type: Marijuana service: No Current occupational status: unemployed Cognitive needs: No Hearing needs: No Vision needs: Yes Questionnaire PHQ-9 Over the last 2 weeks, how often have you been bothered by any of the following problems? 1. Little interest or pleasure in doing things: not at all 2. Feeling down, depressed, or hopeless: not at all 3. Trouble falling or staying asleep, or sleeping too much: not at all 4. Feeling tired or having little energy: not at all 5. Poor appetite or overeating: not at all 6. Feeling bad about yourself - or that you are a failure or have let yourself or your family down: not at all 7. Trouble concentrating on things, such as reading the newspaper or watching television: not at all 8. Moving or speaking so slowly that other people could have noticed. Or the opposite - being so fidgety or restless that you have been moving around a lot more than usual: not at all 9. Thoughts that you would be better off or of hurting yourself in some way: not at all Total score: 0 Depression Screening Interpretation: Negative Depression Screening Done: Yes 89000 - PHQ-9 Billing: Yes Source: Developed by Drs. Raymond Nails, Josy Victor, David Starkey and colleagues, with an educational valeri from [employer]. Thrive Questionnaire Date Thrive assessed: 10/28/24 I am a: Patient What is your living situation today?: I have a steady place to live Within the past 12 months, did the food you bought not last and you didn't have the money to get more?: Never true Within the past 12 months, did you worry whether your food would run out before you got money to buy more?: Never true Do you have trouble paying for medicines?: No Do you have trouble getting transportation to medical appointments?: No Do you have trouble paying your heating and electricity bill?: No Do you have trouble taking care of your child, family member or friend?: No Do you have trouble with day-to-day activities such as bathing, preparing meals, shopping, managing finances, etc.?: No Are you currently unemployed and looking for a job?: No Are you interested in more education?: No Please select the resources that you would like help with: None Currently or been in a relationship where the following occur: No concerns reported THRIVE Score: 0 AUDIT C Alcohol Use Questionnaire (AUDIT-C) 1. How often do you have a drink containing alcohol?: Never 3. How often do you have six or more drinks on one occasion?: Never Total Score: 0 RENETTA-7 AMB Questionnaire RENETTA-7 Date RENETTA - 7 assessed: 10/28/24 Feeling nervous, anxious, or on edge: 0 = Not at all Not being able to stop or control worryin = Not at all Worrying too much about different things: 0 = Not at all Trouble relaxin = Not at all Being so restless that it is hard to sit still: 0 = Not at all Becoming easily annoyed or irritable: 0 = Not at all Feeling afraid as if something awful might happen: 0 = Not at all Total RENETTA-7 score (0-4 normal; 5-9 mild; 10-14 moderate; 15-21 severe): 0 Source: Developed by Drs. Raymond Nails, Josy Victor, David Starkey and colleagues, with an educational valeri from [employer]. RENETTA-7 Assessment Billing RENETTA-7 Assessment Tool: RENETTA-7 Assessment 16543 Review of Systems Const Denies body aches, Denies chills, Denies excessive sweating, Denies fatigue, Denies fever(s) and Denies headache(s) Eyes Denies blurry vision ENT Denies dysphagia, Denies vertigo, Denies dizziness, Denies headache(s), Denies hearing loss and Denies tinnitus Card Denies chest pain, Denies chest pain with activity, Denies syncope, Denies irregular heart rhythm and Denies dyspnea Resp Denies chest congestion, Denies cough, Denies hemoptysis, Denies dyspnea and Denies wheezing GI Denies abdominal pain, Denies melena, Denies hematochezia, Denies coffee ground emesis, Denies dysphagia, Denies diarrhea, Denies nausea and Denies vomiting Denies urinary frequency, Denies dysuria, Denies urinary hesitancy and Denies urinary urgency Musc Denies arthralgias, Denies limited range of motion, Denies muscle cramps and Denies muscle weakness Skin/Breast Denies rash and Denies skin ulcer Neuro Denies Abnormal speech present, Denies confusion, Denies vertigo, Denies dizziness, Denies syncope, Denies headache(s), Denies memory loss and Denies seizure-like activity Psych Denies anxiety, Denies confusion, Denies depression, Denies memory loss, Denies panic attacks and Denies paranoia Endo Denies excessive sweating, Denies fatigue, Denies flushing, Denies polydipsia and Denies polyuria Aller/Immun Denies wheezing Physical exam (Primary Care) Vital Signs: Last Vital Signs Temp 97.1 F 10/28/24 11:43 Pulse 86 10/28/24 11:43 BP 114/74 10/28/24 11:43 Pulse Ox 98 10/28/24 11:43 Oxygen Delivery Method Room Air 10/28/24 11:43 BMI result Body Mass Index 34.2 BMI Assessment/Plan discussion: High BMI High, discussed plan: lifestyle, weight reduction, dietary and physical activity Tobacco/Smoking Status: Tobacco use Status Tobacco use date assessed 11/24/23 10/28/24 11:42 Patient Tobacco Use Status Never used Tobacco 10/28/24 11:42 e-Cigarette/Vaping Use Never Used 10/28/24 11:42 PHQ-9: PHQ-9 Score PHQ-9: Total score 0 10/28/24 11:48 Depression Screening Interpretation: Negative Thrive Assessment: Date of Thrive Assessment Date Thrive assessed 10/28/24 10/28/24 11:48 Currently or been in a relationship where the following occur: No concerns reported Const Other: Obese General: cooperative, comfortable, no acute distress, alert and awake; No confusion Orientation/consciousness: oriented to person, oriented to place, patient oriented x3 and No confusion HENMT Head: Yes normocephalic Ears: external ears normal and TM's normal bilaterally Face and sinus: No sinus tenderness Mouth: Normal oral and palatal mucosa present and tongue normal Teeth and gingiva: dentition normal and gingiva normal Throat: Yes posterior oropharynx normal, Yes tonsils normal and Yes uvula midline Eyes Conjunctivae: conjunctivae normal Sclerae: sclerae normal Pupils: Equal, round and reactive pupils present EOM: EOMs intact bilaterally Direct Ophthalmoscopy: No no photophobia Neck Neck: Yes no lymphadenopathy, No tender and Yes no JVD Thyroid: Thyroid normal Carotids: no bruits Chest Chest palpation & inspection: no tenderness Resp Effort & Inspection: normal respiratory effort, no audible wheezes, not labored and no stridor Auscultation: no crackles, no rales, no rhonchi and no wheezes Cardio Jugular venous distension: no JVD Rate: regular rate, not bradycardic and not tachycardic Rhythm: regular rhythm Bruits: no carotid bruits Peripheral pulses: Peripheral pulses 2+ throughout GI Inspection: Yes normal to inspection, No abdominal wall ecchymosis and No visible herniation Palpation (GI): Soft to palpation, nontender, no guarding, not rigid and No hepatosplenomegaly present Auscultation: normoactive bowel sounds General: Yes no CVA tenderness Back/Spine/Pelvis Back: no CVA tenderness and No back tenderness Cervical Spine: cervical ROM normal Thoracic/Lumbar Spine: thoracic and lumbar spine normal to inspection, straight leg raise negative bilaterally, No thoraco-lumbar ROM limited and No lumbar spinal tenderness Skin Lesions: no lesions Rashes: no rashes Wounds: no wounds Neuro General: oriented to person, oriented to place, patient oriented x3, CN's II-XI intact bilaterally and No confusion Cranial nerves: Yes Equal, round and reactive pupils present and Yes Normal accommodation reflex present Cognition (Neuro): normal cognition Speech: No Abnormal speech present Gait exam (Neuro): Normal gait present Motor exam (neuro): 5/5 motor strength present throughout Extrem Right upper extremity: full ROM; no cyanosis Left upper extremity: full ROM; no cyanosis Right lower extremity: no edema Left lower extremity: no edema Psych Appearance: grossly normal Mental Status: mental status grossly normal Affect: normal affect Attitude: cooperative Thought process: Normal thought process present Coding Level of Care Code Est Pt Prev Care 18-39y(87917) Diagnoses Annual physical exam Z00.00 Hypothyroidism, unspecified type E03.9 Hypothyroidism type: unspecified Class 1 obesity E66.811 Encounter for initial prescription of contraceptive pills Z30.011 Contraceptive encounter type: initial prescription Contraceptive type: pill Cervical cancer screening Z12.4 Additional Codes RENETTA-7 Assessment Billing - RENETTA-7 Assessment Tool: RENETTA-7 Assessment 14163 ([id number]) PHQ-9 - 77426 - PHQ-9 Billing: Yes ([id number]) Assessment & Plan Assessment & Plan (1) Annual physical exam: Code(s): Z00.00 - Encounter for general adult medical examination without abnormal findings Category: Medical Plan: As per HPI (2) Hypothyroid: Code(s): E03.9 - Hypothyroidism, unspecified Category: Medical Qualifiers: Hypothyroidism type: unspecified Qualified Code(s): E03.9 - Hypothyroidism, unspecified Plan: Patient does have a history of hypothyroidism, followed by [place] end[facility]. Assess thyroid function via upcoming lab work and consider adjusting thyroxine dosage if indicated. Emphasized monitoring of thyroid levels to manage symptoms. (3) Class 1 obesity: Code(s): E66.811 - Obesity, class 1 Category: Medical Plan: Patient does understand her BMI is over 30 will work on being more physically active and adapting to better eating habits to reduce her weight (4) Contraception management: Code(s): Z30.9 - Encounter for contraceptive management, unspecified Category: Medical Qualifiers: Contraceptive encounter type: initial prescription Contraceptive type: pill Qualified Code(s): Z30.011 - Encounter for initial prescription of contraceptive pills Plan: Will supply patient with control pills. She will follow up with OBGYN bout control and Pap screening. (5) Cervical cancer screening: Code(s): Z12.4 - Encounter for screening for malignant neoplasm of cervix Category: Medical Plan: She is in need for Pap screening. Orders: Orders Comprehensive [place]. Panel Fast Today Z13.1 - Encounter for screening for diabetes mellitus Complete Blood Count no Diff Today Z13.1 - Encounter for screening for diabetes mellitus Hemoglobin A1c Today R73.01 - Impaired fasting glucose TSH reflex Free T4 Today E03.9 - Hypothyroidism, unspecified Referrals PICKER / PACKER Referral Z12.4 - Encounter for screening for malignant neoplasm of cervix Medications: New levonorgestrel-ethinyl estrad 0.1-20 mg-mcg (Vienva) 1 tab PO DAILY 84 tabs 1RF Z30.9 - Encounter for contraceptive management, unspecified
[2024-10-28 11:43] VITALS: BP 114/74; PULSE 86; TEMP 36.2; O2SAT 98; BMI 34.2
== END 2024-10-28 12:03 | disposition home or self-care (01) ==
LOC: HO.HMCH 11:36
PROVIDERS: PCP Physician Assistant; Visit Provider Physician Assistant
DX: Z00.00 Encounter for general adult medical examination without abnormal findings (principal); E03.9 Hypothyroidism, unspecified; E66.811 Obesity, class 1; Z68.34 Body mass index [BMI] 34.0-34.9, adult; Z30.011 Encounter for initial prescription of contraceptive pills; Z12.4 Encounter for screening for malignant neoplasm of cervix

== ENCOUNTER → 2024-10-28 11:36 | Outpatient (BNVA) | payer OTHER, SELFPAY | PROVIDERS: PCP Physician Assistant; Visit Provider Physician Assistant | DX: Z00.00 Encounter for general adult medical examination without abnormal findings (principal); E03.9 Hypothyroidism, unspecified; F41.9 Anxiety disorder, unspecified; E66.811 Obesity, class 1; Z68.34 Body mass index [BMI] 34.0-34.9, adult | CPT/HCPCS: 96127; 99395 ==

== ENCOUNTER 2024-10-28 12:09 | Outpatient (REF) | payer OTHER, SELFPAY ==
--- OUTSIDE RECORDS SUMMARY | 2024-10-28 13:33 | XMS_ITS | Clinical Summary ---
Author Organization [facility] ity Address [address] [place] [address] Care Team Providers Care Sampler Tester Name Role Phone Unavailable Primary Care Provider [...] Date Last Done Comments Gonorrhea/Chlamydia Screening 2001 HPV Vaccines (1 - 3-dose series) 2016 Meningococcal B Vaccine (1 o f 2 - Standard) 2017 DTaP,Tdap,and Td Vaccines (1 - Tdap) 2020 Hepatitis B Vaccines (1 of 3 - 19+ 3-dose series) 2020 Cervical Cancer Screening: P ap Smear 2022 Depression Screening 02/18/2024 HIV Screening 02/18/2024 Hepatitis C Screening 02/18/2024 Social Influencers of Health Screening 02/18/2024 COVID-19 Vaccine (1 - 2023-2 5 season) 2024 Influenza Vaccine (Season Ended) 2025 HIB Vaccines Aged Out No longer eligi [...]
[2024-10-28 13:46] LABS: Hemoglobin 12.9 g/dl (12.0-16.0); Mean Corpuscular HGB Conc 31.5 g/dl (31.0-35.0); Mean Corpuscular Hemoglobin 26.1 pg (27.0-33.0); Mean Corpuscular Volume 82.8 fL (80.0-98.0); Mean Platelet Volume 10.6 fL (9.4-12.3); Platelet Count 366 X10*3/uL (160-400); Red Blood Count 4.95 X10*6/uL (4.20-5.50); Red Cell Distribution Width 14.1 % (11.0-16.0); White Blood Count 10.4 X10*3/uL (4.8-10.8)
[2024-10-28 13:56] LABS: Estimated Average Glucose 105 mg/dL; Hemoglobin A1C 115.8587 umol/L; Hemoglobin A1c % 5.3 % (<6.0); Total Hemoglobin (HGBA1C) 3420.0688 umol/L
[2024-10-28 14:11] LABS: Alanine Aminotransferase 21 U/L (0-31); Albumin Level 4.2 g/dL (3.5-5.0); Alkaline Phosphatase 97 U/L (39-117); Anion Gap 11 (12-20); Aspartate Amino Transferase 18 U/L (5-31); Bilirubin Total 0.3 mg/dL (0.0-1.0); Blood Urea Nitrogen 12 mg/dL (9-16); Calcium 9.4 mg/dL (8.4-10.2); Carbon Dioxide 23 mmol/L (22-29); Chloride 109 mmol/L (96-108); Estimated Glomerular Filt Rate > 60; Glucose Fasting 95 mg/dL (60-99); Potassium 3.9 mmol/L (3.3-5.1); Sodium 139 mmol/L (135-145); Total Protein 7.6 g/dL (6.5-8.0)
[2024-10-28 14:16] LABS: TSH reflex Free T4 2.96 uIU/mL (0.32-4.0)
== END 2024-10-28 12:10 | disposition home or self-care (01) ==
LOC: HO.10HDL 12:09
PROVIDERS: Visit Provider Physician Assistant
DX: E03.9 Hypothyroidism, unspecified (principal); R73.01 Impaired fasting glucose; Z13.1 Encounter for screening for diabetes mellitus
CPT/HCPCS: 36415; 80053; 83036; 84443; 85027

== ENCOUNTER 2024-11-21 12:10 | Emergency (ER) | payer OTHER, SELFPAY ==
--- NOTE | ~2024-11-21 | US_ITS ---
CLINICAL HISTORY: s p on 11 17 sever pain now --- Additional Notes or Special Instructions: c hemical US OB 1st Trimester transabdominal and transvaginal Comparison: None Findings: There is no intrauterine gestational sac. The endometrium measures 1.8 cm in thickness and is heterogeneous. Mild debris within the endometrial canal. The right ovary measures 2.8 x 1.3 x 1.6 cm. The left ovary measures 3.1 x 1.2 x 1.8 cm. No abnormal adnexal mass. No pelvic free fluid. IMPRESSION: 1. No evidence of intrauterine . 2. Thickened heterogeneous endometrium containing a small amount of debris with possible mild endometrial blood flow. Findings suggest possible retained products of gestation. This document has been electronically signed by: Rochelle Parker MD on 11/21/2024 13:56:18
[2024-11-21 12:22] VITALS: BP 129/93; PULSE 90; RESP 18; TEMP 36.8; O2SAT 98; BMI 35.5
--- NOTE | 2024-11-21 12:22 | ED_ITS ---
HPI - General Adult General Chief complaint: Abdominal Pain Stated complaint: abdominal/pelvic pain Time Seen by Provider: 11/21/24 12:29 Source: patient Mode of arrival: ambulatory Limitations: no limitations History of Present Illness ED Provider: SAÚL ROJAS narrative: 23 yo female with PMH of hypothyroidism, s/p chemical through [facility] last week. She was 5 weeks . She took oral pills on 11/17 then inserted the misoprostol vaginally on 11/18. She states she passed tissue and her bleeding is minimal now. It is scant but still bloody. She has no fevers. She came in today with c/o worsening severe low abd pain. + nausea. No diarrhea/dysuria. She just had negative STI scans. MD complaint: pelvic pain Onset (ago): day(s) (yesterday) Location: abdomen and pelvis Radiation: non-radiation Severity: severe Quality: stabbing and aching Pain Consistency: colicky Relieving factors: none Exacerbating factors: none Associated symptoms: nausea/vomiting Treatments prior to arrival: none Related Data Previous Rx's ?Medication ?Instructions ?Recorded lorazepam 0.5 mg tablet 0.5 mg PO DAILY anxiety 10 days 05/13/24 #10 tabs levothyroxine 112 mcg tablet 112 mcg PO DAILY #30 tabs 08/02/24 levonorgestrel-ethinyl estradiol 1 tab PO DAILY #84 tabs 10/28/24 0.1 mg-20 mcg tablet (Vienva) hydrocodone 5 mg-acetaminophen 325 1 tab PO Q6H PRN pain #6 tabs 11/21/24 mg tablet ondansetron 4 mg disintegrating 4 mg PO Q8H PRN nausea and 11/21/24 tablet vomiting #20 tabs Allergies Allergy/AdvReac Type Severity Reaction Status Date / Time labetalol Allergy Swelling Verified 11/21/24 12:24 Seasonal Allergies Allergy Headache Verified 11/21/24 12:24 Review of Systems 2 Review of Systems: Constitutional : No Fever, No Chills ENT/Mouth : No sore throat, No Rhinorrhea Eyes: No Eye Pain, No Redness Cardiovascular : No Chest Pain, No SOB Respiratory : No Cough, No Sputum, No Wheezing Gastrointestinal : positive Nausea, No Vomiting, No Diarrhea, positive abdominal pain, Genitourinary : positive irregular bleeding, No Dysuria, No Urinary Frequency, positive pelvic pain Musculoskeletal : No Myalgias Skin : No rash Neuro : No Weakness, No Headache Psych : No Anxiety/Panic, No Depression All other systems reviewed and are negative [facility] Past Medical History Attestation statement: The following information was validated with the patient. Source: old records reviewed Medical History care in first trimester Spontaneous Healthy adult Surgical History No pertinent past surgical history Family History Family History Mother No known health problems Father No known health problems Sister Type II diabetes mellitus Social History Social History Housing: Apartment Alcohol intake: never Patient Tobacco Use Status: Never used Tobacco Smoked in Last 30 Days: No e-Cigarette/Vaping Use: Never Used Use of substances other than those prescribed or required for medical reasons: No Substance Use Type: Marijuana Advance Directives: No Advance Directives Information Provided: Yes Do you have a plan to hurt others: No Plan service: No Current occupational status: unemployed Cognitive needs: No Hearing needs: No Vision needs: Yes Physical Exam ED Vital Signs: Vital Signs - 24 hr 11/21/24 12:22 11/21/24 12:53 Temperature 98.3 F Pulse Rate 90 Respiratory Rate 18 18 Blood Pressure 129/93 H Pulse Oximetry 98 Oxygen Delivery Method Room Air BMI result Body Mass Index 35.5 Appearance: Alert. Oriented X3. No acute distress. Eyes: Pupils equal, round and reactive to light. ENT: Pharynx normal. Neck: Normal inspection. Neck supple. CVS: Normal heart rate and rhythm. Pulses normal. Respiratory: No respiratory distress. Breath sounds normal. Abdomen: Soft and moderate ttp in pelvic pain no rebound or guarding. Skin: Skin warm and dry. Normal skin color. Extremities: No lower extremity edema. Pelvic: 3 scopettes of blood, one clot removed I didn't see tissue, no CMT, os slightly open Neuro: Oriented X 3. No motor deficit. No sensory deficit. CN2-12 intact Course Course Course Narrative: RME performed by Jojo Schaffer PA-C. Patient is a 23 year old assigned female at presenting to the emergency department with pelvic and abdominal pain. Patient states that she recently took an pill on November 17 at [facility] [place]. Patient states that she is having vaginal bleeding and continued pain. Detailed physical exam and review of systems are deferred to the chief psychology. Labs ordered. Patient placed back in the waiting room pending room availability and results. Reevaluation(s) Reevaluation #1: had long discussion about patient and need for NPO at midnight, importance of showing up at 730am. She agrees and states she understands. Medications Administered Discontinued Medications Generic Name Dose Route Start Last Admin Trade Name Freq PRN Reason Stop Dose Admin Lactated Ringer's 1,000 mls @ 999 mls/hr 11/21/24 12:41 11/21/24 13:47 Lr IV 11/21/24 13:41 Infused .Q1H1M ONE Infusion Ketorolac Tromethamine 15 mg 11/21/24 12:41 11/21/24 12:53 Ketorolac Tromethamine 15 Mg/Ml Vial IVPUSH 11/21/24 12:42 15 mg ONCE ONE Administration Morphine Sulfate 4 mg 11/21/24 12:41 11/21/24 12:53 Morphine Sulfate 4 Mg/Ml Cartridge IVPUSH 11/21/24 12:42 4 mg ONCE ONE Administration Protocol Ondansetron HCl 4 mg 11/21/24 12:41 11/21/24 12:53 Ondansetron Hcl 4 Mg/2 Ml Vial IVPUSH 11/21/24 12:42 4 mg ONCE ONE Administration Medical Decision Making Medical Decision Making MDM Narrative: 23 yo female with PMH of hypothyroidism, s/p chemical at 5 weeks on 11/17 now here with severe lower pelvic pain and nausea. At this time bedside US shows no pelvic free fluid and no RUQ FF. She needs labs, quant, UA, pelvic US and IV toradol/morphine for pain. Patient kept NPO on arrival. Differential Diagnosis Differential Diagnoses: The differential diagnosis associated with the presentation includes retained POC, ectopic, endometritis less likely given lack of instrumentation, UTI, ovarian cyst Admission/Observation Consideration of admission/observation: Escalation of care including admission/observation considered no sig bleeding on exam no tissues noted I did remove a clot at this time H/H stable pain well controlled no signs of infection plan for NPO at midnight and then 730am Dr. Lama office for suction D+C this is reasonable return precautions for worsening bleeding/pain Consult Healthcare Provider Management of the patient was discussed with: Environmental Remediation Engineer (Dr. Lama suction D+C in AM) Lab Data MDM Lab Attestation statement: I reviewed the patient's lab results. 11/21/24 12:38 11/21/24 12:38 Labs: Lab Results 11/21/24 11/21/24 11/21/24 Range/Units 12:38 14:37 14:42 WBC 9.8 (4.8-10.8) X10*3/uL RBC 4.89 (4.20-5.50) X10*6/uL Hgb 12.7 (12.0-16.0) g/dl Hct 40.1 (37.0-47.0) % MCV 82.0 (80.0-98.0) fL MCH 26.0 L (27.0-33.0) pg MCHC 31.7 (31.0-35.0) g/dl RDW 13.9 (11.0-16.0) % Plt Count 321 (160-400) X10*3/uL MPV 9.7 (9.4-12.3) fL Immature Gran % (Auto) 0.3 (0.0-0.4) % Neut % (Auto) 69.8 (45-73) % Lymph % (Auto) 24.0 (20-40) % [place] % (Auto) 4.0 (2-11) % Eos % (Auto) 1.3 (0-4) % Baso % (Auto) 0.6 (0-2) % Lymph # (Auto) 2.4 (1.2-4.9) X10*3/uL [place] # (Auto) 0.4 (0.1-1.2) X10*3/uL Eos # (Auto) 0.1 (0.0-0.4) X10*3/uL Baso # (Auto) 0.1 (0.0-0.2) X10*3/uL Abs Immat Gran (auto) 0.03 (0.00-0.03) X10*3/uL Absolute Neuts (auto) 6.9 (2.0-8.3) x10*3/uL Absolute Nucleated RBC 0.000 (0.0-0.012) X10*3/uL Nucleated RBC % (auto) 0.0 (0.0-0.2) /100WBC PT 11.3 (10.9-12.4) SEC INR 1.0 (0.9-1.1) Sodium 139 (135-145) mmol/L Potassium 3.9 (3.3-5.1) mmol/L Chloride 110 H (96-108) mmol/L Carbon Dioxide 23 (22-29) mmol/L Anion Gap 10 L (12-20) BUN 8 L (9-16) mg/dL Creatinine 0.63 (0.5-1.4) mg/dL Estim Creat Clear Calc 138.8 Estimated GFR > 60 Random Glucose 99 (60-115) mg/dL Calcium 9.4 (8.4-10.2) mg/dL Magnesium 1.8 (1.6-2.6) mg/dL Total Bilirubin 0.5 (0.0-1.0) mg/dL AST 16 (5-31) U/L ALT 11 (0-31) U/L Alkaline Phosphatase 91 (39-117) U/L Total Protein 7.3 (6.5-8.0) g/dL Albumin 4.3 (3.5-5.0) g/dL Beta HCG, Quant 233 mIU/mL Urine Color Urine Appearance Urine pH (5.0-9.0) Ur Specific [place] (1.005-1.025) Urine Protein (Neg-Trace) mg/dL Urine Glucose (UA) (Negative) mg/dL Urine Ketones (Negative) mg/dL Urine Blood (Negative) Urine Nitrite (Negative) Ur Leukocyte Esterase (Negative) Urine RBC (0-2) /HPF Urine WBC (0-5) /HPF Ur Squamous Epith Cells (0-2) /HPF Urine Bacteria (None Seen) Hyaline Casts (0-2) /LPF COVID-19 (SHIELA) Negative (Negative) COVID-19 Clin Com See Note T. vaginalis (PCR) NOT DETECTED (Not Detect) Bact vaginosis (PCR) POSITIVE A (Negative) C. krusei/glabrata (PCR) NOT DETECTED (Not Detect) Valeri group (PCR) NOT DETECTED (Not Detect) Blood Type O Positive Antibody Screen NEGATIVE 11/21/24 Range/Units 15:10 WBC (4.8-10.8) X10*3/uL RBC (4.20-5.50) X10*6/uL Hgb (12.0-16.0) g/dl Hct (37.0-47.0) % MCV (80.0-98.0) fL MCH (27.0-33.0) pg MCHC (31.0-35.0) g/dl RDW (11.0-16.0) % Plt Count (160-400) X10*3/uL MPV (9.4-12.3) fL Immature Gran % (Auto) (0.0-0.4) % Neut % (Auto) (45-73) % Lymph % (Auto) (20-40) % [place] % (Auto) (2-11) % Eos % (Auto) (0-4) % Baso % (Auto) (0-2) % Lymph # (Auto) (1.2-4.9) X10*3/uL [place] # (Auto) (0.1-1.2) X10*3/uL Eos # (Auto) (0.0-0.4) X10*3/uL Baso # (Auto) (0.0-0.2) X10*3/uL Abs Immat Gran (auto) (0.00-0.03) X10*3/uL Absolute Neuts (auto) (2.0-8.3) x10*3/uL Absolute Nucleated RBC (0.0-0.012) X10*3/uL Nucleated RBC % (auto) (0.0-0.2) /100WBC PT (10.9-12.4) SEC INR (0.9-1.1) Sodium (135-145) mmol/L Potassium (3.3-5.1) mmol/L Chloride (96-108) mmol/L Carbon Dioxide (22-29) mmol/L Anion Gap (12-20) BUN (9-16) mg/dL Creatinine (0.5-1.4) mg/dL Estim Creat Clear Calc Estimated GFR Random Glucose (60-115) mg/dL Calcium (8.4-10.2) mg/dL Magnesium (1.6-2.6) mg/dL Total Bilirubin (0.0-1.0) mg/dL AST (5-31) U/L ALT (0-31) U/L Alkaline Phosphatase (39-117) U/L Total Protein (6.5-8.0) g/dL Albumin (3.5-5.0) g/dL Beta HCG, Quant mIU/mL Urine Color Yellow Urine Appearance Clear Urine pH 8.0 (5.0-9.0) Ur Specific [place] 1.015 (1.005-1.025) Urine Protein Negative (Neg-Trace) mg/dL Urine Glucose (UA) Negative (Negative) mg/dL Urine Ketones Negative (Negative) mg/dL Urine Blood Moderate (2+) H (Negative) Urine Nitrite Negative (Negative) Ur Leukocyte Esterase Negative (Negative) Urine RBC >20 H (0-2) /HPF Urine WBC 0-5 (0-5) /HPF Ur Squamous Epith Cells 0-2 (0-2) /HPF Urine Bacteria None Seen (None Seen) Hyaline Casts 0-2 (0-2) /LPF COVID-19 (SHIELA) (Negative) COVID-19 Clin Com T. vaginalis (PCR) (Not Detect) Bact vaginosis (PCR) (Negative) C. krusei/glabrata (PCR) (Not Detect) Valeri group (PCR) (Not Detect) Blood Type Antibody Screen Independent Interpretation I performed an independent interpretation of an: Ultrasound (?retained POC) Radiology Impression Discussion of test interpretation with radiology: I have reviewed the radiologist's reading. External Record Review External record reviewed: Outpatient record Discharge Plan Discharge Clinical Impression: Pelvic pain, Abnormal uterine bleeding Patient Disposition: Home, Self-Care Instructions: Pelvic Pain (ED) Additional Instructions: labs reassuring you will need procedure tomorrow NPO by midnight nothing by mouth tonight at midnight show up at 730am tomorrow Dr. Lama's office. return for worsening pain and bleeding or any other concerns such as fainting or dizziness Prescriptions: New hydrocodone-acetaminophen 5-325 mg tablet 1 tab PO Q6H PRN (Reason: pain) Qty: 6 0RF Rx Instructions: partial fill okay; Partial Fill upon patient request. ondansetron 4 mg tablet,disintegrating 4 mg PO Q8H PRN (Reason: nausea and vomiting) Qty: 20 0RF No Action lorazepam 0.5 mg tablet 0.5 mg PO DAILY 10 Days Qty: 10 1RF levonorgestrel-ethinyl estrad [Vienva] 0.1-20 mg-mcg tablet 1 tab PO DAILY Qty: 84 1RF levothyroxine 112 mcg tablet 112 mcg PO DAILY Qty: 30 10RF Referrals: [facility] [Provider Group] (show up 730am) Print Language: Indian
[2024-11-21 12:51] LABS: MANUAL DIFF FLAG NO
[2024-11-21 12:53] VITALS: RESP 18
[2024-11-21] MEDS: ondansetron HCL 4 MG/2 ML VIAL IVPUSH (12:53)
[2024-11-21] MEDS: Morphine Sulfate 4 MG/ML CARTRIDGE IVPUSH (12:53)
[2024-11-21] MEDS: Ketorolac Tromethamine 15 MG/ML VIAL IVPUSH (12:53)
[2024-11-21] MEDS: Lactated Ringers 1,000 ML 999 ML IV (12:53)
[2024-11-21 12:54] LABS: Basophils Absolute Auto 0.1 X10*3/uL (0.0-0.2); Basophils Percent Auto 0.6 % (0-2); Eosinophils Absolute Auto 0.1 X10*3/uL (0.0-0.4); Eosinophils Percent Auto 1.3 % (0-4); Hematocrit 40.1 % (37.0-47.0); Hemoglobin 12.7 g/dl (12.0-16.0); Imm Gran Abs Auto 0.03 X10*3/uL (0.00-0.03); Imm Gran Pct Auto 0.3 % (0.0-0.4); Lymphocytes Absolute Auto 2.4 X10*3/uL (1.2-4.9); Mean Corpuscular HGB Conc 31.7 g/dl (31.0-35.0); Mean Platelet Volume 9.7 fL (9.4-12.3); Monocytes Absolute Auto 0.4 X10*3/uL (0.1-1.2); Neutrophils Absolute Auto 6.9 x10*3/uL (2.0-8.3); Neutrophils Percent Auto 69.8 % (45-73); Platelet Count 321 X10*3/uL (160-400); Red Blood Count 4.89 X10*6/uL (4.20-5.50); Red Cell Distribution Width 13.9 % (11.0-16.0); White Blood Count 9.8 X10*3/uL (4.8-10.8)
[2024-11-21 12:58] LABS: Prothrombin Time 11.3 SEC (10.9-12.4)
[2024-11-21 13:10] LABS: COVID-19 Test Negative (Negative); IDNOW Serial# 58CA691E
[2024-11-21 13:19] LABS: Alanine Aminotransferase 11 U/L (0-31); Albumin Level 4.3 g/dL (3.5-5.0); Alkaline Phosphatase 91 U/L (39-117); Anion Gap 10 (12-20); Aspartate Amino Transferase 16 U/L (5-31); Bilirubin Total 0.5 mg/dL (0.0-1.0); Blood Urea Nitrogen 8 mg/dL (9-16); Calcium 9.4 mg/dL (8.4-10.2); Carbon Dioxide 23 mmol/L (22-29); Chloride 110 mmol/L (96-108); Creatinine Clr Calc Pharmacy 138.8; Estimated Glomerular Filt Rate > 60; Glucose Random 99 mg/dL (60-115); HCG Quantitative 233 mIU/mL; Magnesium 1.8 mg/dL (1.6-2.6); Potassium 3.9 mmol/L (3.3-5.1); Sodium 139 mmol/L (135-145); Total Protein 7.3 g/dL (6.5-8.0)
[2024-11-21 15:31] LABS: Appearance Urine Clear; Color Urine Yellow; Glucose Urine UA Negative (Negative); Leukocyte Esterase Urine Negative (Negative); Nitrite Urine Negative (Negative); Specific Gravity - Urine 1.015 (1.005-1.025); UMIC TRIGGER UACC YES; Urine Blood Moderate (2+) (Negative); Urine Ketones Negative (Negative); Urine Protein Negative (Neg-Trace)
[2024-11-21 15:33] LABS: Bacteria Urine None Seen (None Seen); Hyaline Casts Urine 0-2 /LPF (0-2); RBC Urine >20 /HPF (0-2); Squamous Epithelial Cell Urine 0-2 /HPF (0-2); WBC Urine 0-5 /HPF (0-5)
[2024-11-21 15:51] LABS: Bacterial Vaginosis PCR POSITIVE (Negative); Candida Group PCR NOT DETECTED (Not Detect); Candida glab krusei PCR NOT DETECTED (Not Detect); Trichomonas vaginalis PCR NOT DETECTED (Not Detect)
[2024-11-21 16:02] VITALS: BP 135/80; PULSE 90; RESP 18; TEMP 37; O2SAT 97
[2024-11-21 16:03] VITALS: BP 135/80; PULSE 90; RESP 18; TEMP 37; O2SAT 97
--- NOTE | 2024-11-21 16:11 | P.CONOB_ITS ---
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 The patient has stated that she was 5 weeks of gestation, was given mifepristone p.o. followed by 800 mcg vaginal misoprostol on 11/18. The patient has stated that she passed vaginal tissues and her bleeding is minimal with the time of presentation, no associated fevers or chills. The patient is experiencing pelvic cramping. No diarrhea/dysuria. HCG the emergency room was 233 H&H= 12.7/40.1 Rh positive pelvic ultrasound showed the following: IMPRESSION: 1. No evidence of intrauterine . 2. Thickened heterogeneous endometrium containing a small amount of debris with possible mild endometrial blood flow. Findings suggest possible retained products of gestation. cc:: CC: OB [facility] Past Medical History Medical History care in first trimester Spontaneous Healthy adult Family History Family History Mother No known health problems Father No known health problems Sister Type II diabetes mellitus Surgical History Surgical History No pertinent past surgical history Social History Social History Housing: Apartment Alcohol intake: never Patient Tobacco Use Status: Never used Tobacco Smoked in Last 30 Days: No e-Cigarette/Vaping Use: Never Used Use of substances other than those prescribed or required for medical reasons: No Substance Use Type: Marijuana Advance Directives: No Advance Directives Information Provided: Yes Do you have a plan to hurt others: No Plan service: No Current occupational status: unemployed Cognitive needs: No Hearing needs: No Vision needs: Yes Meds Allergies Allergy/AdvReac Type Severity Reaction Status Date / Time labetalol Allergy Swelling Verified 11/21/24 12:24 Seasonal Allergies Allergy Headache Verified 11/21/24 12:24 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 PACKAGE SEALER Physical Exam Vitals Vital signs: Temp Pulse Resp BP Pulse Ox O2 Del Method 98.6 F 90 18 135/80 97 Room Air 11/21/24 16:03 11/21/24 16:03 11/21/24 16:03 11/21/24 16:03 11/21/24 16:03 11/21/24 16:03 BMI result Body Mass Index 35.5 Additional Comments: Physical exam reported by Kady Diamond as the following stable vital signs Abdominal exam soft nontender no rebound or guarding Pelvic exam minimal blood per vagina no evidence of active vaginal no cervical motion or adnexal tenderness 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0) Ur Specific [place] 1.015 (1.005-1.025) Urine Protein Negative (Neg-Trace) mg/dL Urine Glucose (UA) Negative (Negative) mg/dL Antibody Screen Antibody Screen NEGATIVE 11/21/24 14:37 Assessment and Plan (1) Retained products of conception following : Status: Acute Since the patient pain has resolved and is not having any vaginal bleeding and is stable with normal H&H, recommended to Dr. Diamond the following: Instructions to be given to patient to stay NPO after midnight , follow-up in the office in a.m. for re-evaluation/ possible suction D&C with a repeat hCG quantitative, to patient come back to the emergency in case of vaginal bleeding, recurrence of pelvic pain, nausea or vomiting or fever above 100.4. I spent a total of 20 minutes reviewing the chart, communicating the emergency room provider and documenting in the medical record.
[2024-11-21 16:21] LABS: CT PCR NOT DETECTED (Not Detect.); NG PCR NOT DETECTED (Not Detect.)
== END 2024-11-21 16:04 | disposition home or self-care (01) ==
PROVIDERS: Physician Assistant Medical; Emergency Provider Emergency Medicine; PCP Physician Assistant
DX: O03.4 Incomplete spontaneous abortion without complication (principal); R10.2 Pelvic and perineal pain; R10.30 Lower abdominal pain, unspecified
CPT/HCPCS: 76801; 76817; 80053; 81001; 81515; 83735; 84702; 85025; 85610; 86850; 86900; 86901; 87491; 87591; 87635; 96361; 96374; 96375; 99284; 99285; J1885; J2270; J2405; J7120

== ENCOUNTER → 2024-11-21 12:29 | Outpatient (BNV) | payer OTHER, SELFPAY | PROVIDERS: Emergency Provider Emergency Medicine; PCP Physician Assistant; Visit Provider Radiology Diagnostic Radiology | DX: O04.89 (Induced) termination of pregnancy with other complications (principal); R10.2 Pelvic and perineal pain | CPT/HCPCS: 76801; 76817 ==

== ENCOUNTER → 2024-11-21 13:54 | Outpatient (BNV) | payer OTHER, SELFPAY | PROVIDERS: Emergency Provider Emergency Medicine; PCP Physician Assistant; Visit Provider Obstetrics & Gynecology | DX: O03.4 Incomplete spontaneous abortion without complication (principal) | CPT/HCPCS: 99447 ==

== ENCOUNTER 2024-11-22 07:44 | Outpatient (REF) | payer OTHER, SELFPAY ==
--- OUTSIDE RECORDS SUMMARY | 2024-11-22 07:48 | XMS_ITS | Clinical Summary ---
Author Organization [employer] [facility] Address [address] [place] [address] Care Team Providers Care Veterinarian Epidemiologist Name Role Phone Unavailable Primary Care Provider [...]
[2024-11-22 08:27] LABS: HCG Quantitative 135 mIU/mL
== END 2024-11-22 07:45 | disposition home or self-care (01) ==
LOC: HO.LAB 07:44
PROVIDERS: PCP Physician Assistant; Visit Provider Obstetrics & Gynecology
DX: Z13.89 Encounter for screening for other disorder (principal)
CPT/HCPCS: 36415; 84702

== ENCOUNTER 2024-11-22 08:02 | Outpatient (AMB) | payer OTHER, SELFPAY ==
[2024-11-22 08:04] VITALS: BP 108/78; BMI 35.0
--- NOTE | 2024-11-22 08:04 | A.OFFVIS_ITS ---
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 The patient went to the emergency room yesterday s/p medical termination at [facility] last week, she was 5 weeks of gestation, was given mifepristone p.o. followed by 800 mcg vaginal misoprostol on 11/18. The patient has stated that she passed vaginal tissues and started head being vaginal bleeding associated with passage of blood clots which slowed down markedly, at the time of presentation yesterday her bleeding was minimal , no associated fevers or chills. The patient is experiencing pelvic cramping. No diarrhea/dysuria. HCG in the emergency room on 11/21/2024 was 233. H&H= 12.7/40.1 Rh positive GC/CT was negative BV panel was positive for Gardnerella vaginalis pelvic ultrasound showed the following: IMPRESSION: 1. No evidence of intrauterine . 2. Thickened heterogeneous endometrium containing a small amount of debris with possible mild endometrial blood flow. Findings suggest possible retained products of gestation. HCG done today was done to 135 The patient has been experiencing pelvic pain since this there was mild vaginal bleeding [facility] Medical History care in first trimester Spontaneous Healthy adult Surgical History No pertinent past surgical history Family History Mother No known health problems Father No known health problems Sister Type II diabetes mellitus Social History Housing: Apartment Alcohol intake: never Patient Tobacco Use Status: Never used Tobacco e-Cigarette/Vaping Use: Never Used Substance Use Type: Marijuana Patient : No service: No Current occupational status: unemployed Cognitive needs: No Hearing needs: No Vision needs: Yes Female Reproductive History Menstrual Date of last menstrual period: 04/20/20 Total pregnancies: 2 Full term: 2 Review of Systems Card Reports as per HPI and Reports no additional complaints Resp Reports as per HPI and Reports no additional complaints GI Reports as per HPI and Reports no additional complaints Reports as per HPI Physical Exam Vital Signs: Last Vital Signs BP 108/78 11/22/24 08:04 BMI result Body Mass Index 35.0 Const General: cooperative, healthy appearing and comfortable Resp Effort & Inspection: normal respiratory effort Auscultation: clear to auscultation bilaterally Percussion: percussion normal Cardio Palpation: normal PMI Rate: regular rate Rhythm: regular rhythm Heart sounds: no murmurs and no rubs Peripheral pulses: Peripheral pulses 2+ throughout GI Inspection: Yes normal to inspection Palpation (GI): Soft to palpation, nontender, no guarding, not rigid and No hepatosplenomegaly present Percussion: Yes normal to percussion Auscultation: normal bowel sounds Rectal Exam - Female: deferred Assessment & Plan Assessment & Plan (1) Retained products of conception following : Code(s): O03.4 - Incomplete spontaneous without complication Category: Medical Plan: Discussed with the patient the result of the ultrasound suggestive of retained products of conception, the options of the treatment discussed with the patient including medical treatment , suction D&C, all pros, cons, risks and benefits were discussed with the patient and the patient the decided to go ahead with Suction D&C. so a more detailed discussion about the procedure was carried on with the patient including the technique, risks including but not limited to : bleeding, infection, uterine perforation, injury to blood vessels, bowels, ureters, bladder, possible need for blood transfusion with all its risks ( HIV, Hep b or C, anaphylaxis reactions), possible need for laparoscopy, laparotomy, or hysterectomy, possible , thromboembolic events, possibility of a negative impact on future fertility because of scar tissue development inside the uterus; alternatives of this option were discussed with the patient includi ng but not limited to, medical termination of or doing nothing. The patient decided to go ahead with Suction D&C and signed the consent. All questions answered, the patient verbalized understanding and agreed with the plan. Doxycycline 200 mg p.o. preop to be given to the patient. Ultrasound notified. Type and screen ordered. Instructions given the patient to schedule a 2 week postoperative appointment with repeat hCG. This note was generated with a voice recognition program. Some errors may have been overlooked during the review of this note. Sometimes these errors may affect the content or meaning of a given sentence. (2) Bacterial vaginosis: Code(s): N76.0 - Acute vaginitis; B96.89 - Other specified bacterial agents as the cause of diseases classified elsewhere Category: Medical Plan: Will treat with Flagyl 500 mg p.o. b.i.d. x 7 days, Instructions given to the patient to refrain from sexual activity or to use condoms consistently and correctly during the BV treatment regimen, not to douch, it might increase the risk for relapse, and to call if symptoms persist or recur. Orders: Orders HCG Quantitative 2 Weeks O03.4 - Incomplete spontaneous without complication Medications: New metronidazole 500 mg PO BID 7 days 14 tabs 0RF Coding Level of Care Code Est Pt Level 3 (94586) Diagnoses Retained products of conception following O03.4 Bacterial vaginosis N76.0; B96.89
== END 2024-11-22 09:25 | disposition home or self-care (01) ==
LOC: HO.HWS 08:02
PROVIDERS: PCP Physician Assistant; Visit Provider Obstetrics & Gynecology
DX: O03.4 Incomplete spontaneous abortion without complication (principal); B96.89 Other specified bacterial agents as the cause of diseases classified elsewhere
CPT/HCPCS: 99499

== ENCOUNTER 2024-11-22 08:42 | Day surgery (SDC) | payer OTHER, SELFPAY ==
[2024-11-22] VITALS (8 sets, daily range): BP systolic 117–141; BP diastolic 81–92; PULSE 89–109; RESP 16–20; TEMP 36.2–37.1; O2SAT 93–100; BMI 35.9
--- NOTE | 2024-11-22 09:17 | HO.ANESPROP2 ---
HPI - Anesthesia Eval Consult details Narrative: 23 yo F presenting for suction D&C due to retained products of conception PMFSH Active Problems Active Problems: All Active Problems Bacterial vaginosis (Acute) Retained products of conception following (Acute) Cervical cancer screening (Acute) Contraception management (Acute) Class 1 obesity (Acute) (Acute) test negative (Acute) Pharyngitis (Acute) Elevated fasting blood sugar (Acute) Astigmatism (Acute) Annual physical exam (Acute) Paresthesia of left arm (Acute) Neck fullness (Acute) Episode of syncope (Acute) Panic attack (Acute) Hypothyroid (Acute) HTN (hypertension) (Acute) anxiety (Acute) Anemia (Acute) Screening for diabetes mellitus (DM) (Acute) RENETTA (generalized anxiety disorder) (Acute) Obese (Acute) care in first trimester (Acute) Threatened (Acute) Past Medical History Medical History care in first trimester Spontaneous Healthy adult Family History Family History Mother No known health problems Father No known health problems Sister Type II diabetes mellitus Family history of problems with anesthesia: No Surgical History Surgical History No pertinent past surgical history History of Problems with Anesthesia: No Social History Social History Housing: Apartment Alcohol intake: never Patient Tobacco Use Status: Never used Tobacco e-Cigarette/Vaping Use: Never Used Substance Use Type: Marijuana service: No Current occupational status: unemployed Cognitive needs: No Hearing needs: No Vision needs: Yes Meds Allergies Allergy/AdvReac Type Severity Reaction Status Date / Time labetalol Allergy Swelling Verified 11/21/24 12:24 Seasonal Allergies Allergy Headache Verified 11/21/24 12:24 Exam Exam Date and Time: 11/22/24 0920 Height,Weight and Vital Signs: Height 5 ft 1 in Weight 86.3 kg Last Vital Signs Temp 98.8 F 11/22/24 09:06 Pulse 109 H 11/22/24 09:06 Resp 17 11/22/24 09:06 BP 141/92 H 11/22/24 09:06 Pulse Ox 97 11/22/24 09:06 O2 Del Method Room Air 11/22/24 09:06 Airway Mallampati Class: I TM Dist: >3cm Neck ROM: Full Loose/Missing/Broken Teeth: No (braces) Heart: S1S2 Lungs: CTAB Assessment and Plan Assessment Anesthesia Assessment: Anesthesia Plan Discussed and Chart Reviewed Final Anesthetic Review Family History of Problems with Anesthesia: No History of Problems with Anesthesia: No NPO: Yes ASA Class: II and Emergency Final Preanesthetic Review: No Changes in Pt Med Stat, Meds/Allgs Chart Reviewed, Consent Obtained/Reviewed and Anes Risks/Benef Reviewed Patient Risk: Low Procedure Risk: Low Anesthetic Plan Anesthetic Plan: GA and Agree w/ Assess. and Plan Disposition: Standard PACU
--- NOTE | 2024-11-22 09:31 | MHC.SHP ---
Pre-Procedural Eval Section A - 24 Hr Update-Section A only Date of Service: 11/22/24 Section B - Complete if H&P > 30 days Chief Complaint: Incomplete spontaneous without complicati Allergies: Allergies Allergy/AdvReac Type Severity Reaction Status Date / Time labetalol Allergy Swelling Verified 11/21/24 12:24 Seasonal Allergies Allergy Headache Verified 11/21/24 12:24 Plan I have reviewed the history and physical and performed a pertinent physical examination on my patient. No changes have occurred unless specified. Time Spent With Patient Time: Total time managing care of this patient today ____ minutes.
[2024-11-22] MEDS: Lactated Ringers 1,000 ML 100 ML IVCONT (09:33)
[2024-11-22] MEDS: Doxycycline Monohydrate 100 MG CAPSULE 200 MG PO (09:33)
--- NOTE | 2024-11-22 10:22 | PM.OP ---
Brief Operative Note Date of Service: 11/22/24 Pre-op diagnosis: Retained products of conception Post-op diagnosis: same Procedure: Suction D&C Surgeon: Darrel Lama MD Anesthesia: MAC Was an Pari Mutuel Clerk used for this Procedure?: No Estimated blood loss (mL): 10 Pathology: other (Retained Products of conception) Condition: stable Disposition: PACU
--- NOTE | 2024-11-22 10:24 | P.OP_ITS ---
Operative Note Operative Note Date of Service: 11/22/24 Narrative: Preop diagnosis: Retained products of conception Operation: suction D and C Postop diagnosis: The same EBL: Minimal Anesthesia: MAC Surgeon: Darrel Lama MD, FACOG Photographic Supervisor: None Pathology: Retained Products of conception Procedure: The patient was put in a dorsal distal mid position was scrubbed and draped in the usual sterile fashion. A sterile speculum was inserted inside the patient's vagina the anterior lip of the cervix was grasped with single-tooth tenaculum the cervix was dilated up to 7 mm. Under ultrasonographic guidance flexible 7. Suction tip was introduced inside the patient ran cavity till the fundus was hit then turning the suction 360 degrees around products of conception was sucked out toward the uterine cavity. The suction tip was taken out of the patient uterine cavity sharp curettings was followed in 4 quadrants of the uterus till a gritty feeling was felt. The suction tip was reintroduced under ultrasonographic guidance and intrauterine blood was sucked. The suction tip was taken out. Single-tooth tenaculum was removed hemostasis assured using pressure. The patient tolerated the procedure well and was transferred to the PACU in a stable condition.
[2024-11-22] MEDS: Acetaminophen 325 MG TABLET 650 MG PO (11:08)
== END 2024-11-22 12:09 | disposition home or self-care (01) ==
PROVIDERS: Visit Provider Obstetrics & Gynecology
PROC: (CPT 59812; principal; 2024-11-22 09:30)
DX: O07.4 Failed attempted termination of pregnancy without complication (principal); R10.2 Pelvic and perineal pain; R11.0 Nausea; E03.9 Hypothyroidism, unspecified; Z79.899 Other long term (current) drug therapy
CPT/HCPCS: 59812; 76998; 86850; 86900; 86901; 88305; J1100; J1885; J2003; J2250; J2405; J2704; J3010

== ENCOUNTER → 2024-11-22 08:42 | Outpatient (BNV) | payer OTHER, SELFPAY | PROVIDERS: Visit Provider Obstetrics & Gynecology | DX: O03.4 Incomplete spontaneous abortion without complication (principal) | CPT/HCPCS: 59812 ==

== ENCOUNTER 2024-12-08 12:41 | Outpatient (REF) | payer OTHER, SELFPAY ==
[2024-12-08 14:12] LABS: HCG Quantitative < 2 mIU/mL
--- OUTSIDE RECORDS SUMMARY | 2024-12-08 14:28 | XMS_ITS | Clinical Summary ---
Author Organization [facility] [employer] [facility] ity Address [address] [place] [address] Care Team Providers Care Skiing Teacher Name Role Phone Unavailable Primary Care Provider [...]
== END 2024-12-08 12:42 | disposition home or self-care (01) ==
LOC: HO.LAB 12:41
PROVIDERS: PCP Physician Assistant; Visit Provider Obstetrics & Gynecology
DX: O03.4 Incomplete spontaneous abortion without complication (principal); Z98.890 Other specified postprocedural states
CPT/HCPCS: 36415; 84702; 99212

== ENCOUNTER 2024-12-08 13:41 | Outpatient (AMB) | payer OTHER, SELFPAY ==
--- NOTE | 2024-12-08 13:45 | MHC.OFFVIS ---
Intake Visit Reasons: post op Accompanied by: Self / Same As Patient Allergies labetalol Allergy (Verified 12/08/24 13:46) Swelling Seasonal Allergies Allergy (Verified 12/08/24 13:46) Headache HPI Comments Details: Presenting post suction D&C, the patient is doing well with no complaints minimal cramping and or vaginal bleeding. The pathology showed the following: Products of conception, curettage: -Benign secretory endometrium with breakdown, and decidua with necrosis and hemorrhage. Comment: No chorionic villi, parts, or membranes identified HCG done today was less than 2 PFSH Medical History care in first trimester Spontaneous Healthy adult Surgical History No pertinent past surgical history Family History Mother No known health problems Father No known health problems Sister Type II diabetes mellitus Social History Housing: Apartment Alcohol intake: never Patient Tobacco Use Status: Never used Tobacco e-Cigarette/Vaping Use: Never Used Substance Use Type: Marijuana service: No Current occupational status: unemployed Cognitive needs: No Hearing needs: No Vision needs: Yes Review of Systems Const All systems reviewed & are unremarkable except as noted in HPI and below Reports as per HPI and Reports no additional complaints GI Reports no additional complaints Reports no additional complaints Assessment & Plan Assessment & Plan (1) Postop check: Code(s): Z09 - Encounter for follow-up examination after completed treatment for conditions other than malignant neoplasm Category: Medical Plan: Discussed with the patient the intraoperative findings and pathology report . Discussed with the patient that HCG done today less than 2 Coding Level of Care Code Est Pt Level 3 (93040) Diagnoses Postop check Z09
== END 2024-12-08 14:24 | disposition home or self-care (01) ==
LOC: HO.HWS 13:41
PROVIDERS: PCP Physician Assistant; Visit Provider Obstetrics & Gynecology
DX: Z09 Encounter for follow-up examination after completed treatment for conditions other than malignant neoplasm (principal)
CPT/HCPCS: 99024

== ENCOUNTER 2024-12-10 14:03 | Emergency (ER) | payer OTHER, SELFPAY ==
--- NOTE | ~2024-12-10 | XR_ITS ---
EXAMINATION: XR FOREARM, RIGHT CLINICAL INFORMATION: laceration, ?retained FB COMPARISON: None available. TECHNIQUE: AP and lateral views of the right forearm were obtained. FINDINGS: Within the distal dorsal forearm soft tissues, there are at approximately 4-5 linear foreign bodies, likely glass, the largest measuring 9 x 3 mm. There is overlying laceration. No fracture, dislocation, or suspicious bone lesion. No malalignment. No elbow joint effusion. XR/XR forearm RT 2V IMPRESSION: 1. Approximately 4-5 linear foreign bodies within the distal dorsal forearm soft tissues. Suspect this represents glass. 2. No acute bony abnormality. Electronically signed by: Gavin Pacheco MD 12/10/2024 03:04 PM EDT RP
--- NOTE | 2024-12-10 14:09 | ED.SKABFB ---
HPI - Skin/Abscess/Foreign Bdy General Chief complaint: Wound/Laceration Stated complaint: 4 inch Lac to forarm,punched window Time Seen by Provider: 12/10/24 14:08 Source: patient and EMS Mode of arrival: EMS Limitations: no limitations History of Present Illness ED Provider: Park Galvan NP HPI narrative: Patient is a 24-year-old female who presents emergency department for evaluation. She arrives via EMS. She is very anxious tearful. She states that she was upset at home ?over something stupid? and she decided to punch a window which resulted in a laceration to the top of her right forearm. She denies use of anticoagulants or known coagulation disorders. She expresses having high anxiety, wanting to see her boyfriend at this time. She denies any SI/HI. Unaware of date of last tetanus vaccination Related Data Previous Rx's ?Medication ?Instructions ?Recorded levothyroxine 112 mcg tablet 112 mcg PO DAILY #30 tabs 08/02/24 hydrocodone 5 mg-acetaminophen 325 1 tab PO Q6H PRN pain #6 tabs 11/21/24 mg tablet metronidazole 500 mg tablet 500 mg PO BID 7 days #14 tabs 11/22/24 cephalexin 500 mg capsule 500 mg PO QID #28 caps 12/10/24 Allergies Allergy/AdvReac Type Severity Reaction Status Date / Time labetalol Allergy Swelling Verified 12/10/24 14:20 Seasonal Allergies Allergy Headache Verified 12/10/24 14:20 Review of Systems Review of Systems: Yes all other systems are reviewed and are negative PMFSH Past Medical History Attestation statement: The following information was validated with the patient. Source: old records reviewed Medical History care in first trimester Spontaneous Healthy adult Surgical History No pertinent past surgical history Family History Family History Mother No known health problems Father No known health problems Sister Type II diabetes mellitus Social History Social History Housing: Apartment Alcohol intake: never Patient Tobacco Use Status: Never used Tobacco e-Cigarette/Vaping Use: Never Used Substance Use Type: Marijuana Advance Directives: No Advance Directives Information Provided: Yes service: No Current occupational status: unemployed Cognitive needs: No Hearing needs: No Vision needs: Yes Physical Exam Vital Signs: Vital Signs: Last Vital Signs Temp 98.9 F 12/10/24 15:20 Pulse 91 12/10/24 15:20 Resp 16 12/10/24 15:20 BP 137/91 H 12/10/24 15:20 Pulse Ox 99 12/10/24 15:20 O2 Del Method Room Air 12/10/24 15:20 BMI result Body Mass Index 36.2 Appearance: Alert.?Oriented to person, place and time. Tearful, anxious Eyes: Pupils equal, round and reactive to light.? ENT: Pharynx normal.?? Neck: Normal inspection.? Neck supple.?? CVS: Heart sounds normal. Normal heart rate and rhythm.? Pulses normal.?? Respiratory: hyperventilating, LS CTA Skin: Skin warm and dry.? Normal skin color.? Right forearm with 4 Elliot's linear laceration, scant active bleeding, adipose tissue exposed. Just below there is a 0.5 cm linear laceration as well no active bleeding. Extremities: No lower extremity edema.? Neuro: Moves all extremities spontaneously. Sensation intact bilaterally. Ambulates with normal steady gait. Course Reevaluation(s) Reevaluation #1: XR reveals concern for retained foreign bodies approximately 4-5 pieces likely retained glass. I do not feel them superficially. Patient remains very anxious, she will receive a dose of Versed IM for procedural anxiety which I reviewed with my attending Dr. Wolf. Planning for wound repair, will irrigate extensively and attempt to explore for the pieces of glass, if I am not able to retrieve them she will have outpatient follow-up with general surgery Dr. East who I have consulted via tiger text as well. Laceration repair under aseptic technique as per procedural portion of this note with . Discussed indication for improvement hemostasis of wound and healing time. Patient acknowledged understanding. Wound with sterile saline irrigation draped in usual fashion with the use of chlorhexidine. Closure with a total of 10 simple intermittent sutures using 4-0 nylon. Despite wound exploration was unable to visualize or retrieve the retained foreign bodies. Seen by General surgery Dr. East, advises closure of the lacertions with full approximation and outpatient follow-up Patient tolerated well, no complications. Discussed reasons to return including fever or chills, erythema, swelling, pain, purulence or odor from the wound. Advised to return for suture removal in 7-10 days. Time: 17:29 Medications Administered Discontinued Medications Generic Name Dose Route Start Last Admin Trade Name Brianq PRN Reason Stop Dose Admin Diphtheria/Tetanus/Acell Pertussis 0.5 ml 12/10/24 14:18 12/10/24 14:36 Diphth,Pertus(Acell),Tet Adult 0.5 Ml Syringe IM 12/10/24 14:19 0.5 ml .ONCE ONE Administration Midazolam HCl 2 mg 12/10/24 15:42 12/10/24 16:14 Midazolam Hcl 2 Mg/2 Ml Vial IM 12/10/24 15:43 2 mg ONCE ONE Administration Medical Decision Making Medical Decision Making MDM Narrative: Patient is a 24-year-old female who presents emergency department via EMS very anxious tearful and hyperventilating requiring frequent verbal redirection, when asked whether she is concern for any potential for she reports possibly, therefore will defer any benzodiazepines as an UCL lytic at this time, plan to obtain XR to exclude retained foreign body such as glass from the window. Tdap to be updated. Her laceration will require repair. Differential Diagnosis Differential Diagnoses: The differential diagnosis associated with the presentation includes ( laceration, retained foreign body, tendon or ligamentous injury, active bleeding) Consult Healthcare Provider Management of the patient was discussed with: Turbine Operator (General surgery, Dr. East) Lab Data [facility] Lab Attestation statement: I reviewed the patient's lab results. Labs: Lab Results 12/10/24 Range/Units 14:26 Urine Test NEGATIVE (NEGATIVE) Radiology Impression Discussion of test interpretation with radiology: I have reviewed the radiologist's reading. Radiologist Impression: XR/XR forearm RT 2V IMPRESSION: 1. Approximately 4-5 linear foreign bodies within the distal dorsal forearm soft tissues. Suspect this represents glass. 2. No acute bony abnormality. External Record Review External record reviewed: Outpatient record Prescription Management I considered prescription management with: Pain Medication Procedures Laceration Laceration 1: Site: upper extremity Side (If applicable): right Size (cm): 10 Description: linear Depth: simple, single layer Local Anesthetic: lidocaine 1% Pre-repair: wound explored and irrigated extensively Skin layer closed with: nylon Size (cm): 4-0 Number of sutures: 7 Technique: simple, interrupted Laceration 2: Site: upper extremity Side (If applicable): right Size (cm): 2 Description: linear Depth: simple, single layer Local Anesthetic: lidocaine 1% Pre-repair: wound explored and irrigated extensively Skin layer closed with: nylon Size (cm): 4-0 Technique: simple, interrupted Number of sutures: 3 Discharge Plan Discharge Clinical Impression: Forearm laceration Qualifiers: Encounter type: initial encounter Laterality: right Qualified Code(s): S51.811A - Laceration without foreign body of right forearm, initial encounter Patient Disposition: Home, Self-Care Instructions: Laceration (ED) Additional Instructions: Sutures: You may clean the area gently slowly with warm water and mild non scented soap over the next 2 days, dry the area afterwards, otherwise should remain dry until removed.? Avoid prolonged soaking in water such as swimming, soaking in the bath. Sutures will need to be removed in 7-10 days, you may return back to emergency department or follow-up with your primary care doctor for removal Contact the general surgery office to arrange for outpatient follow-up has been were unable to remove any foreign body/glass from the wound Course of antibiotics has been sent to the pharmacy please complete the entire course do not skip any doses or stop taking even if you begin to feel better. You should have re-evaluation if you experience redness, swelling, pus-like drainage, fevers or chills. It is very important to use a back-up form of control, such as barrier condoms/abstinence, while on antibiotics and for one week after as they may be ineffective in preventing while on the antibiotics. While taking antibiotics, please include probiotics that can be found over the counter or yogurt in your diet. If symptoms of a yeast infection or diarrhea occur, please seek evaluation. Tetanus vaccine was updated today Return with any new or worsening symptoms or concerns such as increasing pain, redness, swelling, pus-like discharge, fevers or chills. Prescriptions: New cephalexin 500 mg capsule 500 mg PO QID Qty: 28 0RF No Action hydrocodone-acetaminophen 5-325 mg tablet 1 tab PO Q6H PRN (Reason: pain) Qty: 6 0RF Rx Instructions: partial fill okay; Partial Fill upon patient request. levothyroxine 112 mcg tablet 112 mcg PO DAILY Qty: 30 10RF metronidazole 500 mg tablet 500 mg PO BID 7 Days Qty: 14 0RF Referrals: Orlando Lucio PA-C [Primary Care Provider, Internal Medicine] Drew East MD [Physician, General Surgery] Clinical Impression: Forearm laceration Print Language: Bulgarian
[2024-12-10 14:11] VITALS: BP 141/99; PULSE 116; RESP 20; TEMP 37.2; O2SAT 95; BMI 36.2
--- OUTSIDE RECORDS SUMMARY | 2024-12-10 14:31 | XMS_ITS | Clinical Summary ---
Author Organization [facility] ity Address [address] [place] [address] Care Team Providers Care Health Data Administrator Name Role Phone Unavailable Primary Care Provider [...]
[2024-12-10] MEDS: Diphth,Pertus(ACell),Tet Adult 0.5 ML SYRINGE IM (14:36)
[2024-12-10 14:42] LABS: UPreg QC Valid YES; Urine Pregnancy NEGATIVE (NEGATIVE)
[2024-12-10 15:20] VITALS: BP 137/91; PULSE 91; RESP 16; TEMP 37.2; O2SAT 99
[2024-12-10] MEDS: Midazolam HCl 2 MG/2 ML VIAL IM (16:14)
[2024-12-10] MEDS: Lidocaine HCl 1 % MPF 5 ML VIAL 10 ML SUBCUT (16:15)
[2024-12-10 17:58] VITALS: BP 137/91; PULSE 91; RESP 16; TEMP 37.2; O2SAT 99
== END 2024-12-10 17:58 | disposition home or self-care (01) ==
PROVIDERS: Nurse Practitioner Family; Emergency Provider Emergency Medicine; PCP Physician Assistant
DX: S51.811A Laceration without foreign body of right forearm, initial encounter (principal); M79.601 Pain in right arm; F41.9 Anxiety disorder, unspecified; W25.XXXA Contact with sharp glass, initial encounter; Y93.9 Activity, unspecified; Y92.9 Unspecified place or not applicable; Y99.8 Other external cause status; Z23 Encounter for immunization
CPT/HCPCS: 12004; 73090; 81025; 90471; 90715; 96372; 99283; 99284; J2003; J2250

== ENCOUNTER → 2024-12-10 14:16 | Outpatient (BNV) | payer OTHER, SELFPAY | PROVIDERS: Emergency Provider Emergency Medicine; PCP Physician Assistant; Visit Provider Radiology Diagnostic Radiology | DX: S50.851A Superficial foreign body of right forearm, initial encounter (principal) | CPT/HCPCS: 73090 ==

== ENCOUNTER 2024-12-20 11:41 | Outpatient (AMB) | payer OTHER, SELFPAY ==
[2024-12-20 11:43] VITALS: BP 116/78; PULSE 82; TEMP 37.2; O2SAT 98; BMI 35.2
--- NOTE | 2024-12-20 11:43 | A.OFFPC_ITS ---
Vital Signs 12/20/24 11:43 Height 5 ft Weight 180 lb BMI 35.2 BP 116/78 Blood Pressure Location Lt brachial Position Sitting Pulse 82 Pulse Source Pulse Oximeter Temp 99.0 F Temp Source Oral Pulse Oximetry (%) 98 Oxygen Delivery Method Room Air Int[place] [facility] [place] removal Meat Scrubber Required: No Accompanied by: Self / Same As Patient Allergies labetalol Allergy (Verified 12/20/24 11:52) Swelling Seasonal Allergies Allergy (Verified 12/20/24 11:52) Headache Medication List - Last Reconciled 12/20/24 by SEBLE Aragon cephalexin 500 mg PO QID hydrocodone-acetaminophen 5-325 mg 1 tab PO Q6H PRN levothyroxine 112 mcg PO DAILY metronidazole 500 mg PO BID 7 days Tobacco use date assessed: 12/20/24 Dental Screening Dental Screen Date: 12/20/24 Did you have a dental visit in the last 12 months?: No Did you have a dental problem in the last 6 months where you did not have access to dental care?: No Was dental information given to patient?: No [place] [facility] [place] stitch removal HPI Details Patient is a 24-year-old female who is presenting to remove stitches from right the top forearm. Ten stitches removed without any issues. No signs or symptoms of infection. The area was cleaned with antiseptic solution. [facility] Medical History care in first trimester Spontaneous Healthy adult Surgical History No pertinent past surgical history Family History Mother No known health problems Father No known health problems Sister Type II diabetes mellitus Social History Housing: Apartment Alcohol intake: never Patient Tobacco Use Status: Never used Tobacco e-Cigarette/Vaping Use: Never Used Substance Use Type: Marijuana service: No Current occupational status: unemployed Cognitive needs: No Hearing needs: No Vision needs: Yes Questionnaire PHQ-9 Over the last 2 weeks, how often have you been bothered by any of the following problems? 1. Little interest or pleasure in doing things: not at all 2. Feeling down, depressed, or hopeless: not at all 3. Trouble falling or staying asleep, or sleeping too much: not at all 4. Feeling tired or having little energy: not at all 5. Poor appetite or overeating: not at all 6. Feeling bad about yourself - or that you are a failure or have let yourself or your family down: not at all 7. Trouble concentrating on things, such as reading the newspaper or watching television: not at all 8. Moving or speaking so slowly that other people could have noticed. Or the opposite - being so fidgety or restless that you have been moving around a lot more than usual: not at all 9. Thoughts that you would be better off or of hurting yourself in some way: not at all Total score: 0 Depression Screening Interpretation: Negative Depression Screening Done: Yes Source: Developed by Drs. Raymond Nails, Josy Victor, David Starkey and colleagues, with an educational valeri from [employer]. Thrive Questionnaire Date Thrive assessed: 12/20/24 I am a: Patient What is your living situation today?: I have a steady place to live Within the past 12 months, did the food you bought not last and you didn't have the money to get more?: Never true Within the past 12 months, did you worry whether your food would run out before you got money to buy more?: Never true Do you have trouble paying for medicines?: No Do you have trouble getting transportation to medical appointments?: No Do you have trouble paying your heating and electricity bill?: No Do you have trouble taking care of your child, family member or friend?: No Do you have trouble with day-to-day activities such as bathing, preparing meals, shopping, managing finances, etc.?: No Are you currently unemployed and looking for a job?: No Are you interested in more education?: No Please select the resources that you would like help with: None Currently or been in a relationship where the following occur: No concerns reported THRIVE Score: 0 AUDIT C Alcohol Use Questionnaire (AUDIT-C) 1. How often do you have a drink containing alcohol?: Never 3. How often do you have six or more drinks on one occasion?: Never Total Score: 0 RENETTA-7 AMB Questionnaire RENETTA-7 Date RENETTA - 7 assessed: 12/20/24 Feeling nervous, anxious, or on edge: 0 = Not at all Not being able to stop or control worryin = Not at all Worrying too much about different things: 0 = Not at all Trouble relaxin = Not at all Being so restless that it is hard to sit still: 0 = Not at all Becoming easily annoyed or irritable: 0 = Not at all Feeling afraid as if something awful might happen: 0 = Not at all Total RENETTA-7 score (0-4 normal; 5-9 mild; 10-14 moderate; 15-21 severe): 0 Source: Developed by Drs. Raymond Nails, Josy Victor, David Starkey and colleagues, with an educational valeri from [employer]. Review of Systems Const Details: Denies chills, Denies fatigue, Denies fever(s), Denies headache(s) and Denies weakness Cardiac Denies chest pain, Denies claudication, Denies leg edema, Denies lightheadedness, Denies palpitations, Denies dyspnea, Denies dyspnea on exertion, Denies orthopnea and Denies other (Loss of consciousness) Resp Denies cough, Denies excessive phlegm production, Denies dyspnea, Denies dyspnea on exertion, Denies snoring and Denies wheezing Skin: Right forearm laceration s/p stitching Physical exam (Primary Care) Vital Signs: Last Vital Signs Temp 99.0 F 12/20/24 11:43 Pulse 82 12/20/24 11:43 BP 116/78 12/20/24 11:43 Pulse Ox 98 12/20/24 11:43 Oxygen Delivery Method Room Air 12/20/24 11:43 BMI result Body Mass Index 35.2 Tobacco/Smoking Status: Tobacco use Status Tobacco use date assessed 12/20/24 12/20/24 11:48 Patient Tobacco Use Status Never used Tobacco 12/20/24 11:48 e-Cigarette/Vaping Use Never Used 12/20/24 11:48 PHQ-9: PHQ-9 Score PHQ-9: Total score 0 12/20/24 11:54 Depression Screening Interpretation: Negative Thrive Assessment: Date of Thrive Assessment Date Thrive assessed 12/20/24 12/20/24 11:48 Currently or been in a relationship where the following occur: No concerns reported Const General: cooperative and no acute distress HENMT Head: Yes normal to inspection Ears: external ears normal General nose exam: Normal external nose present Eyes Pupils: Equal, round and reactive pupils present Neck Neck: Yes normal visual inspection Resp Effort & Inspection: no respiratory distress Auscultation: clear to auscultation bilaterally Cardio Rate: regular rate Rhythm: regular rhythm Heart sounds: S1 normal heart sound present, S2 normal heart sound present, no gallops and no murmurs Skin Trauma: laceration (right forearm laceration closed via stitches) Neuro Cranial nerves: Yes Equal, round and reactive pupils present Coding Level of Care Code Procedure Only Diagnoses Laceration of right forearm, subsequent encounter S51.811D Encounter type: subsequent encounter Time Spent (min) 17 Assessment & Plan Assessment & Plan (1) Laceration of right forearm: Code(s): S51.811A - Laceration without foreign body of right forearm, initial encounter Category: Medical Qualifiers: Encounter type: subsequent encounter Qualified Code(s): S51.811D - Laceration without foreign body of right forearm, subsequent encounter Plan: Right forearm laceration-10 stitches removed without any issues. Area cleansed with antiseptic solution. No signs or symptoms of infection.
--- OUTSIDE RECORDS SUMMARY | 2024-12-20 12:33 | XMS_ITS | Clinical Summary ---
Author Organization [facility] ity Address [address] [place] [address] Care Team Providers Care Special Education Professional Name Role Phone Unavailable Primary Care Provider [...]
== END 2024-12-20 12:06 | disposition home or self-care (01) ==
LOC: HO.HMCH 11:42
PROVIDERS: PCP Physician Assistant
DX: S51.811A Laceration without foreign body of right forearm, initial encounter (principal)

== ENCOUNTER → 2024-12-20 11:41 | Outpatient (BNVA) | payer OTHER, SELFPAY | PROVIDERS: PCP Physician Assistant | DX: S51.811D Laceration without foreign body of right forearm, subsequent encounter (principal); X58.XXXD Exposure to other specified factors, subsequent encounter | CPT/HCPCS: 99212 ==

== ENCOUNTER 2025-01-12 18:59 | Emergency (ER) | payer OTHER, SELFPAY ==
--- NOTE | 2025-01-12 19:01 | ECG_ITS ---
Test Reason : CP Blood Pressure : */* mmHG Vent. Rate : 102 BPM Atrial Rate : 102 BPM P-R Int : 166 ms QRS Dur : 82 ms QT Int : 326 ms P-R-T Axes : 53 32 11 degrees QTcB Int : 424 ms Sinus tachycardia Otherwise normal ECG When compared with ECG of 09-Nov-2023 01:43, No significant change was found Referred By: Colleen Garces Electronically Signed By: Jai Doll
--- NOTE | 2025-01-12 19:06 | ED_ITS ---
HPI - General Adult General Chief complaint: Chest Pain Stated complaint: chest & throat pain Time Seen by Provider: 01/12/25 21:37 Source: patient Mode of arrival: ambulatory Limitations: no limitations History of Present Illness ED Provider: HPI narrative: Patient with anxiety comes here with multiple complaints including sore throat chest pain feels thyroid level is low also says that she had mushrooms and she is allergic to it with there was no rash Related Data Previous Rx's ?Medication ?Instructions ?Recorded levothyroxine 112 mcg tablet 112 mcg PO DAILY #30 tabs 08/02/24 hydrocodone 5 mg-acetaminophen 325 1 tab PO Q6H PRN pa in #6 tabs 11/21/24 mg tablet metronidazole 500 mg tablet 500 mg PO BID 7 days #14 t abs 11/22/24 cephalexin 500 mg capsule 500 mg PO QID #28 caps 12/10 lorazepam 0.5 mg tablet (Ativan) 0.5 mg PO BEDTIME PRN anxiety #10 01/12/25 tabs Allergies Allergy/AdvReac Type Severity Reaction Status Date / Time labetalol Allergy Swelling Verified 01/12/25 19:10 mushroom Allergy Itching Verified 01/12/25 19:10 Seasonal Allergies Allergy Headache Verified 01/12/25 19:10 Review of Systems 2 Review of Systems: Yes all other systems are reviewed and are negative PMFSH Past Medical History Medical History care in first trimester Spontaneous Healthy adult Surgical History No pertinent past surgical history Family History Family History Mother No known health problems Father No known health problems Sister Type II diabetes mellitus Social History Social History Housing: Apartment Alcohol intake: never Patient Tobacco Use Status: Never used Tobacco Smoked in Last 30 Days: No e-Cigarette/Vaping Use: Never Used Use of substances other than those prescribed or required for medical reasons: No Substance Use Type: Marijuana Substance Use Frequency Other:: nightly cbd Advance Directives: No Advance Directives Information Provided: No Do you have a plan to hurt others: No Plan service: No Current occupational status: unemployed Cognitive needs: No Hearing needs: No Vision needs: Yes Physical Exam ED Vital Signs: BMI result Body Mass Index 34.2 Appearance: Alert. Oriented X3. No acute distress. Anxious Eyes: PERRLA, No Nystagmus ENT: Pharynx normal. Oral Mucosa moist thyroid slightly enlarged Neck: Normal inspection. Neck supple. CVS: Normal heart rate and rhythm. Pulses normal. Respiratory: No respiratory distress. Equal air entry bilateral, no wheezing/rales/rhonchi Abdomen: Soft and nontender. Bowel sounds are present, no mass palpable, no CVA tenderness Skin: Skin warm and dry. Normal skin color. Normal skin turgor. Extremities: No lower extremity edema. No calf tenderness Neuro: Oriented X 3. No motor deficit. No sensory deficit.No cerebellar signs , cranial nerves II-XII intact Course Course Course Narrative: This is a rapid medical exam performed by Vinh Garecs NP: Additional HPI, ROS, PE not included below will be deferred to primary provider. Patient is a 24-year-old female with history of hypothyroid, HTN, anemia presenting with complaint of sore throat and chest pain, seeing flashing lights. States has had similar symptoms when thyroid level is high. Also ate food with mushrooms in it unintentionally prior to arrival, has reported allergy. Also stating she is unsure of , was on OCPs but insurance stopped covering it. Thinks LMP was 6/18 but is not certain. Plan: EKG, labs, strep and viral swabs Medical Decision Making Medical Decision Making MDM Narrative: Patient's anxiety TSH normal no signs of hypothyroidism was given lorazepam advised to follow with PCP Lab Data MDM Lab Attestation statement: I reviewed the patient's lab results. 01/12/25 20:12 01/12/25 20:12 Labs: Lab Results 01/12/25 Range/Units 20:12 WBC 10.7 (4.8-10.8) X10*3/uL RBC 5.03 (4.20-5.50) X10*6/uL Hgb 12.8 (12.0-16.0) g/dl Hct 41.0 (37.0-47.0) % MCV 81.5 (80.0-98.0) fL MCH 25.4 L (27.0-33.0) pg MCHC 31.2 (31.0-35.0) g/dl RDW 13.9 (11.0-16.0) % Plt Count 359 (160-400) X10*3/uL MPV 10.1 (9.4-12.3) fL Immature Gran % (Auto) 0.3 (0.0-0.4) % Neut % (Auto) 65.1 (45-73) % Lymph % (Auto) 28.2 (20-40) % Barbour % (Auto) 4.8 (2-11) % Eos % (Auto) 1.2 (0-4) % Baso % (Auto) 0.4 (0-2) % Lymph # (Auto) 3.0 (1.2-4.9) X10*3/uL Barbour # (Auto) 0.5 (0.1-1.2) X10*3/uL Eos # (Auto) 0.1 (0.0-0.4) X10*3/uL Baso # (Auto) 0.0 (0.0-0.2) X10*3/uL Abs Immat Gran (auto) 0.03 (0.00-0.03) X10*3/uL Absolute Neuts (auto) 7.0 (2.0-8.3) x10*3/uL Absolute Nucleated RBC 0.000 (0.0-0.012) X10*3/uL Nucleated RBC % (auto) 0.0 (0.0-0.2) /100WBC Sodium 139 (135-145) mmol/L Potassium 3.8 (3.3-5.1) mmol/L Chloride 109 H (96-108) mmol/L Carbon Dioxide 23 (22-29) mmol/L Anion Gap 11 L (12-20) BUN 17 H (9-16) mg/dL Creatinine 0.77 (0.5-1.4) mg/dL Estim Creat Clear Calc 110.3 Estimated GFR > 60 Random Glucose 94 (60-115) mg/dL Calcium 9.5 (8.4-10.2) mg/dL Total Bilirubin 0.3 (0.0-1.0) mg/dL AST 17 (5-31) U/L ALT 19 (0-31) U/L Alkaline Phosphatase 108 (39-117) U/L Total Protein 7.8 (6.5-8.0) g/dL Albumin 4.5 (3.5-5.0) g/dL TSH 3.20 (0.32-4.0) uIU/mL Beta HCG, Quant < 2 mIU/mL Influenza Type A (PCR) NEGATIVE (Negative) Influenza Type B (PCR) NEGATIVE (Negative) RSV RNA Qual (PCR) NEGATIVE (Negative) SARS-CoV-2 RNA (RT-PCR) NEGATIVE (Negative) S. pyogenes GrpA SERENE Negative (Negative) Discharge Plan Discharge Clinical Impression: Panic anxiety syndrome Patient Disposition: Home, Self-Care Instructions: Anxiety (ED), Panic Attack (ED) Additional Instructions: Rest at home Medication for severe anxiety as prescribed Follow up with your PCP as needed Prescriptions: New lorazepam [Ativan] 0.5 mg tablet 0.5 mg PO BEDTIME PRN (Reason: anxiety) Qty: 10 0RF No Action cephalexin 500 mg capsule 500 mg PO QID Qty: 28 0RF hydrocodone-acetaminophen 5-325 mg tablet 1 tab PO Q6H PRN (Reason: pain) Qty: 6 0RF Rx Instructions: partial fill okay; Partial Fill upon patient request. levothyroxine 112 mcg tablet 112 mcg PO DAILY Qty: 30 10RF metronidazole 500 mg tablet 500 mg PO BID 7 Days Qty: 14 0RF Stand Alone Forms: Work/School Release Interventions: ED Discharge Assessment Last Done: 01/12/25 22:31 Discharge Date/Time: 01/12/25 22:33 Print Language: East Timorese
[2025-01-12 19:08] VITALS: BP 123/75; PULSE 101; RESP 18; TEMP 36.6; O2SAT 98; BMI 34.2
[2025-01-12 20:20] LABS: MANUAL DIFF FLAG NO
[2025-01-12 20:41] LABS: Alanine Aminotransferase 19 U/L (0-31); Albumin Level 4.5 g/dL (3.5-5.0); Alkaline Phosphatase 108 U/L (39-117); Anion Gap 11 (12-20); Aspartate Amino Transferase 17 U/L (5-31); Blood Urea Nitrogen 17 mg/dL (9-16); Calcium 9.5 mg/dL (8.4-10.2); Carbon Dioxide 23 mmol/L (22-29); Chloride 109 mmol/L (96-108); Creatinine Clr Calc Pharmacy 110.3; Estimated Glomerular Filt Rate > 60; Potassium 3.8 mmol/L (3.3-5.1); Sodium 139 mmol/L (135-145); Total Protein 7.8 g/dL (6.5-8.0)
[2025-01-12 20:46] LABS: Hematocrit 41.0 % (37.0-47.0); Hemoglobin 12.8 g/dl (12.0-16.0); Imm Gran Abs Auto 0.03 X10*3/uL (0.00-0.03); Imm Gran Pct Auto 0.3 % (0.0-0.4); Lymphocytes Absolute Auto 3.0 X10*3/uL (1.2-4.9); Mean Corpuscular HGB Conc 31.2 g/dl (31.0-35.0); Mean Corpuscular Hemoglobin 25.4 pg (27.0-33.0); Mean Corpuscular Volume 81.5 fL (80.0-98.0); NRBC Abs Auto 0.000 X10*3/uL (0.0-0.012); NRBC Pct Auto 0.0 /100WBC (0.0-0.2); Platelet Count 359 X10*3/uL (160-400); Red Blood Count 5.03 X10*6/uL (4.20-5.50); White Blood Count 10.7 X10*3/uL (4.8-10.8)
[2025-01-12 20:51] LABS: IDNOW Serial# 55D5AD1C; Strep A Nucleic Acid Negative (Negative)
[2025-01-12 20:53] VITALS: BP 119/80; PULSE 100; RESP 20; TEMP 36.2; O2SAT 97
[2025-01-12 20:57] LABS: Resp Syncy Virus RNA Qual PCR NEGATIVE (Negative); SARS COV2 PCR INHOUSE NEGATIVE (Negative)
[2025-01-12 22:31] VITALS: BP 119/80; PULSE 100; RESP 20; TEMP 36.2; O2SAT 97
== END 2025-01-12 22:33 | disposition home or self-care (01) ==
PROVIDERS: Registered Nurse Emergency; Emergency Provider Internal Medicine
DX: F41.0 Panic disorder [episodic paroxysmal anxiety] (principal); F43.0 Acute stress reaction; R07.89 Other chest pain; R07.0 Pain in throat; Z03.818 Encounter for observation for suspected exposure to other biological agents ruled out
CPT/HCPCS: 80053; 84443; 84702; 85025; 87637; 87651; 93005; 99283; 99285

== ENCOUNTER → 2025-01-12 19:01 | Outpatient (BNV) | payer OTHER, SELFPAY | PROVIDERS: Emergency Provider Internal Medicine; Visit Provider Internal Medicine Cardiovascular Disease | DX: R00.0 Tachycardia, unspecified (principal) | CPT/HCPCS: 93010 ==

== ENCOUNTER 2025-03-17 11:06 | Outpatient (REF) | payer OTHER, SELFPAY ==
[2025-03-17 11:50] LABS: Hematocrit 38.3 % (37.0-47.0); Hemoglobin 12.5 g/dl (12.0-16.0); Mean Corpuscular HGB Conc 32.6 g/dl (31.0-35.0); Mean Corpuscular Hemoglobin 25.8 pg (27.0-33.0); Mean Corpuscular Volume 79.1 fL (80.0-98.0); NRBC Abs Auto 0.000 X10*3/uL (0.0-0.012); NRBC Pct Auto 0.0 /100WBC (0.0-0.2); Platelet Count 296 X10*3/uL (160-400); Red Blood Count 4.84 X10*6/uL (4.20-5.50); White Blood Count 13.3 X10*3/uL (4.8-10.8)
[2025-03-17 12:24] LABS: Alanine Aminotransferase 9 U/L (0-31); Albumin Level 4.1 g/dL (3.5-5.0); Alkaline Phosphatase 85 U/L (39-117); Anion Gap 10 (12-20); Aspartate Amino Transferase 13 U/L (5-31); Blood Urea Nitrogen 8 mg/dL (9-16); Calcium 9.2 mg/dL (8.4-10.2); Carbon Dioxide 23 mmol/L (22-29); Chloride 109 mmol/L (96-108); Estimated Glomerular Filt Rate > 60; Potassium 4.2 mmol/L (3.3-5.1); Sodium 138 mmol/L (135-145); Total Protein 7.4 g/dL (6.5-8.0)
--- OUTSIDE RECORDS SUMMARY | 2025-03-17 15:37 | XMS_ITS | Clinical Summary ---
Author Organization [facility] Address [address] [place] [address] Care Team Providers Care Mailroom Manager Name Role Phone Unavailable Primary Care Provider Unavailabl e Allergies No known active allergies Medications EpiPen 2-Ramana 0.3 MG/0.3ML injection syringe Inject 0.3 mg into the shoulder, thigh, or buttocks. Rx'd after allergic reaction to labetolol 4 Active levothyroxine (Synthroid, Levoxyl) 112 MCG tablet Take 112 mcg by mouth 1 (one) time each day. 5 Active norethindrone (Lyleq) 0.35 MG tabletIndications :General counseling and advice on contraceptive management,Encoun ter for initial prescription of contraceptive pills Take 1 tablet (0.35 mg total) by mouth 1 (one) time each day. If more than 3 hours late to take a pill, use backup barrier protection x 2 days. 84 tablet 4 5 026 Active levonorgestrel (EContra One-Step) 1.5 MG tabletIndications :Encounter for emergency contraceptive counseling and treatment Take 1 tablet (1.5 mg total) by mouth if needed (as soon as possible within 120 hours of unprotected sex). Consider taking if more than 3 hours late to take control pill. 2 tablet 5 5 026 Active Active Problems Problem Noted Date Diagnosed Date Anxiety 10/05/2024 Overview (10/05/2024): Pt not currently engaged with mental health services at time of this writing. Pt informed of [facility] services/accepted - request in person appt. [facility] consult order placed. Feels stable/Denies current issues Hypothyroid 10/05/2024 Immunizations Immunization Administration Dates Next Due DTaP 02/08/2004,09/06/2002,04/15/2002 ,02/01/2002 DTaP / Hep B / IPV 03/05/2007 HPV, Quadrivalent 08/14/2016 Hep A, ped/adol, 2 dose 02/25/2019 Hep B, Adolescent or Pediatric 02/28/2005,2003 Hib (HbOC) 02/08/2004,09/06/2002,04/15/2002 ,02/11/2002 IPV 09/06/2002,04/15/2002,02/11/2002 MMR 03/05/2007,02/08/2004 Meningococcal MCV4P 12/15/2017 Pneumococcal Conjugate PCV 7 09/06/2002,04/15/20 02,02/11/2002 Tdap 06/27/2023 Varicella 08/05/2006,02/08/2004 Family History Medical History Relation Comments No Known Problems Brother No Known Problems Father No Known Problems Mother No Known Problems Other No Known Problems Parent Diabetes Sibling No Known Problems Sister Relation Status Comments Brother Alive Father Alive Mother Alive Other Alive Parent Alive Sibling Alive Sister Alive Social History Tobacco Use Types Packs/Day Years Used Date Smoking Tobacco: Never Passive Smoke Exposure: Never Smokeless Tobacco: Never Alcohol Use Standard Drinks/Week Comments Not Currently 0 (1 standard drink = 0.6 oz pur e alcohol) social PP Intimate Partner Violence Answer Larry e Recorded Physically Abused No 04/29/2024 Reproductive coercion No 04/29/2024 Unsafe living situation No 04/29/20 24 Forced to do things No 04/29/2024 E-Cigarette/Vaping History Answer Date Recorded E-Cigarette Use Never User 12/08/2024 Contains THC? N 12/08/2024 Contains Nicotine N 12/08/2024 Vaping Containing CBD? N Vaping Containing Flavoring? N Vaping - Other Substances? Not on file 12/08 Comments No Sex and Gender Information Value Date Recorded Sex Assigned at Female 04/29/2024 9:27 AM [employer]MENT [employer]M [employer]SEM[employer] Legal Sex Female 6:06 PM CDT Gender Identity Female 04/01/2022 6:06 PM CDT Sexual Orientation Straight 04/01/2022 6: 06 PM CDT Last Filed Vital Signs Vital Sign Reading Time Taken Comments Blood Pressure 115/70 11/16/2024 12:11 PM EDT Pulse 92 11/16/2024 12:11 PM EDT Temperature 36.9 C (98.4 F) 04/29/2024 11:26 AM EST Respiratory Rate - - Oxygen Saturation - - Inhaled Oxygen Concentration - - Weight 86.2 kg (190 lb) 12/08/2024 11:27 AM EDT Height 152.4 cm (5') 12/08/2024 11:27 AM EDT Body Mass Index 37.11 12/08/2024 11:27 AM EDT Plan of Treatment Health Maintenance Due Date Last Done Comments HIV Screening 2001 Hepatitis C Screening 2001 Syphilis Screening 2001 HPV Vaccines (2 - 2-dose series) 02/11/2017 08/14/19 17 Hepatitis A Vaccines (2 of 2 - 2-dose series) 08/26/2019 02/25/2019 Hepatitis B Vaccines (1 of 3 - 19+ 3-dose series) 2020 03/05/2007, 02/28/2005, 02/08/2004 Pap Smear 2022 Influenza Vaccine (#1) 2025 Chlamydia Screening 11/16/2025 11/16/2024, DTaP,Tdap,and Td Vaccines (7 - Td or Tdap) 06/27/2033 06/27/2023, 03/05/2007, 02/08/2004, Additional history exists 3 Month STI Rescreening Chlamydia and Gonorrhea Discontinued 11/16/2024, 10/05/2024 Procedures * This document contains information received from the source organization and may not represent a complete record from that organization. Procedure Name Priority Date/Time Associated Diagnosis Comments ORCHARD CT/GC APTIMA COMBO2 ASSAY Routine 11/16/2024 1:30 PM EDT Screen for sexually transmitted diseases ORCHARD APTIMA TRICHOMONAS VAGINALIS Routine 10/05/2024 12:51 PM EDT Routine screening for STI (sexually transmitted infection) ORCHARD CT/GC APTIMA COMBO2 ASSAY Routine 10/05/2024 12:50 PM EDT Routine screening for STI (sexually transmitted infection) Screening for chlamydial disease POCT , URINE (P[facility]) Routine 10/05/2024 12:11 PM EDT Encounter for test, result negative [facility] HCG, QUANTITATIVE, Routine 05/05/2024 9:52 AM EST Weeks of gestation of not specified [facility]ST HCG, QUANTITATIVE, Routine 05/03/2024 1:36 PM EST Weeks of gestation of not specified POCT , URINE (PPLM) Routine 04/29/2024 11:21 AM EST Encounter for test, result positive US Routine 04/29/2024 11:08 AM EST Encounter for test, result positive QUEST HCG, QUANTITATIVE, Routine 04/29/2024 11:00 AM EST since 03/17/2015 Results * CT/GC APTIMA Combo 2 Assay (11/16/2024 1:30 PM EDT) Source Vaginal swab [facility] Chlamydia Not Detected Not Detected [facility] Gonorrhea Not Detected Not Detected [facility] Comment: A positive or negative CT or NG Nucleic Acid Amplification Test (NAAT) result should be interpreted in conjunction with other laboratory and clinical data available to the clinician. A new sample is recommended for invalid or inconclusive results. If clinically indicated, further testing can be performed on a new sample. [facility] at[facility] CLIA: [id number] [facility] [address] [facility]. [address] Gardenia Hudson MD, Sales Representative [employer] Vaginal Swab Vaginal structure / Unknown 11/16/2024 1:30 PM EDT 11/17/2024 12:09 PM EDT Narrative [facility] - 11/18/2024 9:15 AM EDT Vaginal swab Ysabel Veras NP LAB BODY FLUIDS AND STOOLS OR DERABLES Final Result [facility] from Last 3 Months or Most Recently Relevant to Health Maintenance Insurance [facility]
--- OUTSIDE RECORDS SUMMARY | 2025-03-17 15:37 | XMS_ITS | Clinical Summary ---
Author Organization [facility] Address [address] [facility] [address] [place] [phone] Phone Care Team Providers Care Sheriff Deputy Name Role Phone Pcp, Not Required Primary Care Provider Unavaila ble Allergies Active Allergy Reactions Criticality Noted Date Comments Labetalol Swelling 10/18/2023 Medications levothyroxine (SYNTHROID,LEVOT HROID) 25 MCG tablet Take 25 mcg by mouth every morning. Active Social History Tobacco Use Types Packs/Day Years Used Date Smoking Tobacco: Never Assessed Education Answer Date Recorded Are you interested in more education? Not on [place] e 10/18/2023 Are you concerned about learning? Not on file 10/18/2023 No 10/18/2023 No 10/18/2023 Digital Access Answer Date Recorded No 10/18/2023 No 10/18/2023 Reliable internet access at home? Not on file 10/18/2023 Device with a working camera? Not on file Intimate Partner Violence Answer Date R ecorded Are you denied basic needs s uch as food, clothing, or medical care? No 11/10/2023 In the past 12 months have y ou been in a relationship with a person who hurts, threatens, or tries to control you? No 11/10/2023 Are you denied basic needs s uch as food, clothing, or medical care? No 11/10/2023 In the past 12 months have y ou been in a relationship with a person who hurts, threatens, or tries to control you? No 11/10/2023 Comments Unknown Sex and Gender Information Value Date Recorded Sex Assigned at Female 11/10/2023 11:53 PM EDT Legal Sex Female 3:58 PM EDT Gender Identity Female 11/10/2023 11:53 PM EDT Sexual Orientation Straight 11/10/2023 11 :53 PM EDT Last Filed Vital Signs Vital Sign Reading Time Taken Comments Blood Pressure 123/85 11/11/2023 4:06 PM EDT Pulse 89 11/11/2023 4:06 PM EDT Temperature 36.6 C (97.9 F) 11/11/2023 12:24 PM EDT Respiratory Rate 20 11/11/2023 4:06 PM EDT Oxygen Saturation 100% 11/11/2023 4:06 PM EDT Inhaled Oxygen Concentration - - Weight 79.4 kg (175 lb) 11/10/2023 7:59 PM EDT Height 154.9 cm (5' 1 ) 11/10/2023 7:59 PM EDT Body Mass Index 33.07 11/10/2023 7:59 PM EDT Plan of Treatment Health Maintenance Due Date Last Done Comments Adult Td,Tdap Booster 2001 DEPRESSION SCREENING 2013 SMOKING Hx and SMOKELESS TOBACCO SCREENING 2014 HPV VACCINES (1 - 3-dose series) 2016 CHLAMYDIA SCREENING 2017 MENINGOCOCCAL VACCINES (B) ( 1 of 2 - Standard) 2017 HEPATITIS C SCREENING 12/10/2019 HIV ONE-TIME SCREENING (18-6 5 YEARS) 12/10/2019 PAP SMEAR 2022 TSH LEVEL 11/09/2024 11/10/2023, 10/18/2023 INFLUENZA VACCINE (#1) 2025 COVID-19 VACCINE ( - 2023-2 5 season) 2025 HEPATITIS A VACCINES Aged Out No long er eligible based on patient's age to complete this topic HIB VACCINES Aged Out No longer eligi ble based on patient's age to complete this topic MENINGOCOCCAL VACCINES (ACWY) Aged Out No longer eligible based on patient's age to complete this topic PNEUMOCOCCAL VACCINES (0-49 years) Aged Out No longer eligible b ased on patient's age to complete this topic Medical Devices Not on file Procedures Procedure Name Priority Date/Time Associated Diagnosis Comments TSH Routine 11/10/2023 8:41 PM EDT from Last 3 Months or Most Recently Relevant to Health Maintenance Results * (ABNORMAL) TSH (11/10/2023 8:41 PM EDT) TSH 46.10(H) 0.27 - 4.20 uIU/mL [facility] 11/10/2023 8:41 PM EDT 11/10/2023 8:42 PM EDT us Sera Cochran MD LAB BLOOD ORDERABLES Final R esult [facility] [address] [place] [address] from Last 3 Months or Most Recently Relevant to Health Maintenance Insurance [facility] ACO ACO ACO [facility] Member Subscriber Plan / Payer (Ef fective 2023-Present) Name:Nanette Moura Relation to Subscriber:Self Name:Nanette Moura Payer ID:[id number] Group ID:[id number] Type:Medicaid Address: [place] [id number] Care Teams Sheriff Deputy Relationship Specialty Start Date End Date Pcp, Not Required [address] [place] [id number] PCP - General 10/18/23 Additional Source Comments The information contained in this document represents components of the legal health record. It is not the complete legal health record.[facility]
--- OUTSIDE RECORDS SUMMARY | 2025-03-17 15:37 | XMS_ITS | Encounter Summary ---
Author Organization [facility] Address [address] [facility] [address] [place] [phone] Phone Care Team Providers Care Marketing Sales Consultant Name Role Phone Pcp, Not Required Primary Care Provider Unavaila ble Encounter Details Date Type Department Care Team (Late st Contact Info) Description 11/11/2023 Procedure Pass [facility], Ct Scan - [address] [address] Social History Tobacco Use Types Packs/Day Years [...] Orientation Straight 11/10/2023 11 :53 PM EDT documented as of this encounter Plan of Treatment Not on file documented as of this encounter Visit Diagnoses Not on filedocumented in this encounter Care Teams Marketing Sales Consultant Relationship Specialty Start Date End Date Pcp, Not Required [address] [place] [address] PCP - General 10/18/23 documented as of this encounter Additional Source Comments The information contained in this document represents components of the legal health record. It is not the complete legal health record.[facility]
== END 2025-03-17 11:07 | disposition home or self-care (01) ==
LOC: HO.LAB 11:06
PROVIDERS: Absent Provider Student in an Organized Health Care Education/Training Program; PCP Physician Assistant; Visit Provider Physician Assistant
DX: Z13.1 Encounter for screening for diabetes mellitus (principal)
CPT/HCPCS: 36415; 80053; 85027

== ENCOUNTER 2025-05-27 14:42 | Outpatient (REF) | payer OTHER, SELFPAY ==
--- OUTSIDE RECORDS SUMMARY | 2025-05-27 18:48 | XMS_ITS | Encounter Summary ---
Author Organization [facility] Address [address] [facility] [address] [place] [phone] Phone Care Team Providers Care Comp Field Case Manager Name Role Phone Pcp, Not Required Primary Care Provider Unavaila ble Encounter Details Date Type Department Care Team (Late st Contact Info) Description 11/11/2023 Procedure Pass [facility], Ct Scan - [address] [address] Social History Tobacco Use Types Packs/Day Years [...] on filedocumented in this encounter Care Teams Comp Field Case Manager Relationship Specialty Start Date End Date Pcp, Not Required PCP - General 10/18/23 documented as of this encounter Additional Source Comments The information contained in this document represents components of the legal health record. It is not the complete legal health record.[facility]
--- OUTSIDE RECORDS SUMMARY | 2025-05-27 18:48 | XMS_ITS | Clinical Summary ---
Author Organization [facility] Address [address] [facility] [address] [place] [phone] Phone Care Team Providers Care Overlock Sewing Machine Operator Name Role Phone Pcp, Not Required Primary [...] VACCINE (#1) 2025 COVID-19 VACCINE ( - 2024-2 6 season) 2025 HEPATITIS A VACCINES Aged Out [...] Procedure Name Priority Date/Time Associated Diagnosis Comments THYROID STIMULATING HORMONE (TSH) Routine 11/10/2023 8:41 PM EDT from Last 3 Months or Most Recently Relevant to Health Maintenance Results * (ABNORMAL) TSH (11/10/2023 8:41 PM EDT) TSH 46.10(H) 0.27 - 4.20 uIU/mL [facility] 11/10/2023 8:41 PM EDT 11/10/2023 8:42 PM EDT us Sera Cochran MD LAB BLOOD BKR ORDERABLES Fin al Result Performing Organization Address City/State/[facility] Co de Phone Number [facility] [address] [place] [address] from Last 3 Months or Most Recently Relevant to Health Maintenance Insurance ACO ACO ACO ACO ACO [facility] Care Teams Overlock Sewing Machine Operator Relationship Specialty Start Date End Date Pcp, Not Required PCP - General 10/18/23 Additional Source Comments The information contained in this document represents components of the legal health record. It is not the complete legal health record.[facility]
--- OUTSIDE RECORDS SUMMARY | 2025-05-27 18:51 | XMS_ITS | Clinical Summary ---
Author Organization [facility] ity Address [address] [place] [address] Care Team Providers Care Street Sweeper Name Role Phone Unavailable Primary Care Provider [...] Cervical Cancer Screening: P ap Smear 2022 HIV Screening 02/18/2024 Hepatitis C Screening 02/18/2024 Social Influencers of Health Screening 02/18/2024 Depression Screening 06/23/2024 COVID-19 Vaccine (1 - 2024-2 6 season) 2025 Influenza Vaccine (#1) 2025 RSV Immunization Adult Patie nts (1 - 1-dose 75+ series) 2076 HIB Vaccines Aged Out No longer eligi [...] 5 Years) and At-Risk Patients (6 to 49 Years) Aged Out No longer eligible b ased on patient's age to complete this topic RSV Immunization Patients Un genaro 20 months Aged Out No longer eligible b ased on patient's age to complete this topic Varicella Vaccines Aged Out No longer eligible based on patient's age to complete this topic
[2025-05-27 19:24] LABS: Free T4 (Free Thyroxine) 1.00 ng/dL (0.71-1.85); Thyroid Stimulating Hormone 0.59 uIU/mL (0.32-4.0)
== END 2025-05-27 14:43 | disposition home or self-care (01) ==
LOC: HO.LAB 14:42
PROVIDERS: PCP Physician Assistant; Visit Provider Student in an Organized Health Care Education/Training Program
DX: E03.9 Hypothyroidism, unspecified (principal); Z3A.01 Less than 8 weeks gestation of pregnancy
CPT/HCPCS: 36415; 84436; 84439; 84443; 84480; 84481

== ENCOUNTER 2025-05-31 10:23 | Outpatient (AMB) | payer OTHER, SELFPAY ==
--- NOTE | 2025-05-31 10:25 | A.OFFVIS_ITS ---
Vital Signs 05/31/25 10:27 Height 5 ft 1 in Weight 182 lb 15.739 oz BMI 34.6 BP 128/78 Blood Pressure Location Rt brachial Position Sitting Pulse 79 Pulse Source Pulse Oximeter Pulse Oximetry (%) 96 Oxygen Delivery Method Room Air Intake Visit Reasons: Hypothyroidism Intake Note: Patient presents today for a follow-up on Hypothyroidism: Patient last seen by DR Marisa Dolan MD: Patient reports she is 20 weeks . * Thyroid Function Tests: Completed on 05/27/2025 Mental Health Social Worker Required: No Accompanied by: Self / Same As Patient Allergies labetalol Allergy (Verified 05/31/25 10:27) Swelling mushroom Allergy (Verified 05/31/25 10:27) Itching Seasonal Allergies Allergy (Verified 05/31/25 10:27) Headache Medication List - Last Reconciled 05/31/25 by Cheryl Cody MD aspirin 81 mg PO DAILY levothyroxine 125 mcg PO DAILY 75-iron [id number] 28 mg iron- 800 mcg (One A Day Women's DHA) pkgs PO HPI Comments Details: 23 YO Female who is seen for follow up of Hyothyroidism. Hx of hypothyroidism post- diagnosed October 2023 with subclinical hypothyroidism and labs had shown TSH elevated at 24 with normal free T4. Given the degree of TSH elevation she was started levothyroxine Started L-T4 October 2023 Denies , cold intolerance, +dry skin, hair loss, constipation. There is no hx of hyperlipidemia . Has obstructive sx of goiter . Denies consuming any kelp or seaweed. 4 pregnancies, miscarriage 2019 and 2023. Biotin: No April 2024: Levothyroxine increased from 100 to 112 mcg daily Labs from May 2024 showed normal TSH and free T4. Currently taking levothyroxine 112 mcg daily, appropriate administration and adherence. LMP 07/10/24, not on contraceptives. Interval history 05/31/25 She is 21 weeks today Her dose of Levothyroxine was increased to 150 mcg on February 2025 Reports feeling that her heart races, specially at night time, also endorses anxiety Denies diarrhea, denies cold intolerance Reports possible difficulty gaining weight Reports increased hand shaking and blurry vision. Physical exam General: Well appearing. NAD. Neck/Thyroid: Thyroid not palpable, no nodules. Eyes: No conjunctival injection, not lid lag or proptosis CV: RRR, no murmur. No edema. Resp:Lungs clear to auscultation bilaterally Abdomen: Soft, nontender. nondistended Extremities/Neuro: No weakness or tremor of outstretched hands Laboratory Tests 01/12/25 05/27/25 20:12 14:56 TSH 3.20 0.59 Free T4 1.00 Thyroxine (T4) 15.1 H Free T3 3.2 Total T3 233 H Laboratory Tests 11/18/23 12/15/23 01/06/24 12:30 15:02 11:28 TSH 5.64 H 4.22 H Free T4 0.91 1.05 Thyroglobulin Antibody 1 Thyroid Peroxidase Ab >900 H 02/06/24 02/21/24 03/30/24 10:20 10:41 12:25 TSH 1.81 2.23 3.91 Free T4 0.93 Thyroglobulin Antibody Thyroid Peroxidase Ab Laboratory Tests 11/18/23 03/30/24 04/30/24 12:30 12:25 11:40 TSH 3.91 6.73 H Free T4 0.93 1.12 Total T3 Thyroglobulin Antibody 1 Thyroid Peroxidase Ab >900 H 05/18/24 06/18/24 16:54 16:14 TSH 6.73 H 2.76 Free T4 1.06 1.14 Total T3 117 Thyroglobulin Antibody Thyroid Peroxidase Ab US THYROID 10/2023 CLINICAL INFORMATION: Fullness of neck, swelling, lump, hypothyroidism. COMPARISON: None available. TECHNIQUE: Linear transducer garland-scale and color Doppler examination with attention to the region of the thyroid. FINDINGS: SIZE: Measurements of the thyroid lobes and nodules are given in sagittal, anteroposterior and transverse dimensions respectively. Right Thyroid Lobe: 4.9 x 1.3 x 1.7 cm, volume 5.7 mL. Parenchyma: The gland echotexture is heterogeneous. Thyroid vascularity is increased. Left Thyroid Lobe: 5.9 x 1.5 x 2.0 cm, volume 9.3 mL. Parenchyma: The gland echotexture is heterogeneous. Thyroid vascularity is increased. Isthmus: 0.6 cm in maximum AP dimension. No focal thyroid nodule is seen. NODES: No lymphadenopathy is seen in the tissue surrounding the thyroid gland. US/US thyroid IMPRESSION: Enlarged markedly heterogeneous thyroid gland without a focal nodule. No further follow-up is recommended. [facility] Medical History care in first trimester Spontaneous Healthy adult Surgical History No pertinent past surgical history Family History Mother No known health problems Father No known health problems Sister Type II diabetes mellitus Social History Housing: Apartment Alcohol intake: never Patient Tobacco Use Status: Never used Tobacco e-Cigarette/Vaping Use: Never Used Substance Use Type: Marijuana service: No Current occupational status: unemployed Cognitive needs: No Hearing needs: No Vision needs: Yes Physical Exam Vital Signs: Last Vital Signs Pulse 79 05/31/25 10:27 BP 128/78 05/31/25 10:27 Pulse Ox 86 L 05/31/25 10:27 Oxygen Delivery Method Room Air 05/31/25 10:27 BMI result Body Mass Index 34.6 Assessment & Plan Assessment & Plan (1) Hypothyroid: Code(s): E03.9 - Hypothyroidism, unspecified Category: Medical Qualifiers: Hypothyroidism type: unspecified Qualified Code(s): E03.9 - Hypothyroidism, unspecified Plan: Patient with a history of hypothyroidism diagnosed in September 2023 in her . On levothyroxine 112 mcg daily increased from 100 mcg daily in April 2024. Labs from May 2024 showed she was biochemically euthyroid. She is currently 21 wk , her levothyroxine dose was increased to 150 mcg. Most recent labs showed TSH 0.49, FT4 1.0, T3 233, she also have symptoms concerning for excess thyroid replacement. I think ideally, her TSH goal should be 2-3. Plan: -Decrease levothyroxine 125 mcg daily -repeat blood work ordered with TSH and free T4 in 6 weeks from dose change -follow up in 3 months Plan 25 minutes spent reviewing previous records, labs, imaging, education and documenting in the chart Orders: Orders Free T4 (Free Thyroxine) 6 Weeks E03.9 - Hypothyroidism, unspecified TSH reflex Free T4 6 Weeks E03.9 - Hypothyroidism, unspecified Medications: New levothyroxine 125 mcg PO DAILY 30 caps 2RF E03.9 - Hypothyroidism, unspecified Discontinued levothyroxine (Synthroid) Discontinued Reason: Doctor's Order 150 mcg PO DAILY 30 tabs 5RF Coding Level of Care Code Tele New Pt Level 3 (65541) Complex visit Add On G2211 Diagnoses Hypothyroidism, unspecified type E03.9 Hypothyroidism type: unspecified
[2025-05-31 10:27] VITALS: BP 128/78; PULSE 79; O2SAT 96; BMI 34.6
== END 2025-05-31 11:19 | disposition home or self-care (01) ==
LOC: HO.ENCR 10:24
PROVIDERS: PCP Physician Assistant; Visit Provider Student in an Organized Health Care Education/Training Program
DX: E03.9 Hypothyroidism, unspecified (principal)
CPT/HCPCS: 99203